=== PATIENT | female | born 1955 | race Caucasian/White ===

== ENCOUNTER 2021-06-17 16:21 | Inpatient (IN) | payer SELFPAY ==
[~2021-06-17] VITALS: Ht 162.5 cm; Wt 60.0 kg
[2021-06-17] VITALS (8 sets, daily range): BP systolic 139–152; BP diastolic 84–93
[2021-06-17] MEDS ORDERED: fentaNYL INJ 100 MCG/2 ML AMP IVP STA (16:48)
--- NOTE | 2021-06-17 16:57 | ED Abdominal Pain ---
General Chief Complaint: Abdominal/GI Problems Stated Complaint: UPPER ABD/BACK PAIN History of Present Illness Date Seen by Provider: Jun 17, 2021 Time Seen by Provider: 16:40 Initial Comments 65-year-old female presents for acute epigastric pain. She states over the last several days her pain has become worse. She does not have a primary care provider. She was seen at [facility] in the walk-in care earlier today and had an ultrasound and lab work. She was told that her ultrasound was essentially normal and her lab work would not be available for a few days. Her symptoms have worsened and she presents here. She reports mild nausea she has not vomited since earlier today. She has not eaten much today and hasn't had an appetite for the last few days. She reports slight weight loss over the last few days. She denies any urinary symptoms. She has no history of chronic GI symptoms. She has never had a colonoscopy. She tried some Rolaids last evening, for heart burn and had no improvement. She has not received the COVID vaccine and has no known exposure. No past history of CAD and no family history of CAD. Timing/Duration: 4-5 Days Severity/Quality: Severe Location: Epigastric Radiation: Back Associated Symptoms: Back Pain; No Chest Pain, No Diaphoresis, No Fever/Chills, No Fatigue, No Headache; Heartburn, Nausea/Vomiting; No Rash, No Shortness of Air, No Swelling/Mass in Abdomen, No Syncope, No Weakness Allergies and Home Medications Allergies Coded Allergies: No Known Drug Allergies (Unverified , 06/17/21) Patient Home Medication List Home Medication List Reviewed: Yes Review of Systems Review of Systems Constitutional: no symptoms reported, see HPI Respiratory: No Symptoms Reported, See HPI Gastrointestinal: See HPI, Abdominal Pain; Denies Constipated, Denies Diarrhea; Nausea, Poor Appetite, Poor Fluid Intake; Denies Rectal Bleeding, Denies Vomiting Genitourinary: No Symptoms Reported, See HPI All Other Systems Reviewed Negative Unless Noted: Yes Past Qnehjzx-Yryrqk-Nhbbxp Hx Patient Social History Tobacco Use?: No Use of E-Cig and/or Vaping dev: No Substance use?: No Alcohol Use?: Yes Alcohol type: Beer Alcohol Frequency: Couple times a week Pt feels they are or have been: No Immunizations Up To Date Influenza Vaccine Up-to-Date: No; Not Current Family Medical History Reviewed Nursing Family Hx Physical Exam Vital Signs Vital Signs - First Documented 06/17/21 16:27 Temp 36.5 Pulse 93 Resp 20 B/P (MAP) 227/134 (165) Pulse Ox 98 O2 Delivery Room Air Capillary Refill : Height/Weight/BMI Height: '" Weight: lbs. oz. kg; BMI Method: General Appearance: WD/WN, mild distress (secondary to pain) HEENT: PERRL/EOMI, normal ENT inspection, TMs normal, pharynx normal Neck: non-tender, full range of motion, supple, normal inspection Respiratory: chest non-tender, lungs clear, normal breath sounds Cardiovascular: normal peripheral pulses, regular rate, rhythm, no edema Gastrointestinal: normal bowel sounds, soft, no pulsatile mass; No distended, No rebound; tenderness (epigastric. + Negrete sign. ) Extremities: normal range of motion, non-tender, normal inspection, no pedal edema, normal capillary refill Back: normal inspection, no CVA tenderness Neurologic/Psychiatric: no motor/sensory deficits, alert, normal mood/affect, oriented x 3 Skin: normal color, warm/dry; No jaundice Lymphatic: no adenopathy Progress/Results/Core Measures Results/Orders Lab Results Laboratory Tests Test 06/17/21 16:31 Range/Units White Blood Count 12.9 H 4.3-11.0 10^3/uL Red Blood Count 3.86 3.80-5.11 10^6/uL Hemoglobin 12.8 11.5-16.0 g/dL Hematocrit 38 35-52 % Mean Corpuscular Volume 98 80-99 fL Mean Corpuscular Hemoglobin 33 25-34 pg Mean Corpuscular Hemoglobin Concent 34 32-36 g/dL Red Cell Distribution Width 13.9 10.0-14.5 % Platelet Count 80 L 130-400 10^3/uL Mean Platelet Volume 11.5 9.0-12.2 fL Immature Granulocyte % (Auto) 1 % Neutrophils (%) (Auto) 79 H 42-75 % Lymphocytes (%) (Auto) 11 L 12-44 % Monocytes (%) (Auto) 10 0-12 % Eosinophils (%) (Auto) 0 0-10 % Basophils (%) (Auto) 0 0-10 % Neutrophils # (Auto) 10.1 H 1.8-7.8 10^3/uL Lymphocytes # (Auto) 1.4 1.0-4.0 10^3/uL Monocytes # (Auto) 1.3 H 0.0-1.0 10^3/uL Eosinophils # (Auto) 0.0 0.0-0.3 10^3/uL Basophils # (Auto) 0.0 0.0-0.1 10^3/uL Immature Granulocyte # (Auto) 0.1 0.0-0.1 10^3/uL Percent Immature Platelet Fraction 9.3 H 0.0-7.6 % Urine Color YELLOW Urine Clarity CLEAR Urine pH 6.0 5-9 Urine Specific [place] >=1.030 1.016-1.022 Urine Protein 2+ H NEGATIVE Urine Glucose (UA) NEGATIVE NEGATIVE Urine Ketones NEGATIVE NEGATIVE Urine Nitrite NEGATIVE NEGATIVE Urine Bilirubin NEGATIVE NEGATIVE Urine Urobilinogen 0.2 < = 1.0 MG/DL Urine Leukocyte Esterase NEGATIVE NEGATIVE Urine RBC (Auto) 3+ H NEGATIVE Urine RBC 5-10 H /HPF Urine WBC 0-2 /HPF Urine Crystals PRESENT H /LPF Urine Amorphous Sediment FEW MELCHOR URATES H /LPF Urine Bacteria TRACE /HPF Urine Casts PRESENT /LPF Urine Granular Casts 5-10 H /LPF Urine Mucus NEGATIVE /LPF Urine Culture Indicated NO Sodium Level 135 135-145 MMOL/L Potassium Level 3.0 L 3.6-5.0 MMOL/L Chloride Level 100 98-107 MMOL/L Carbon Dioxide Level 21 21-32 MMOL/L Anion Gap 14 5-14 MMOL/L Blood Urea Nitrogen 25 H 7-18 MG/DL Creatinine 2.85 H 0.60-1.30 MG/DL Estimat Glomerular Filtration Rate 17 BUN/Creatinine Ratio 9 Glucose Level 105 70-105 MG/DL Calcium Level 9.6 8.5-10.1 MG/DL Corrected Calcium 9.6 8.5-10.1 MG/DL Total Bilirubin 2.1 H 0.1-1.0 MG/DL Aspartate Amino Transf (AST/SGOT) 61 H 5-34 U/L Alanine Aminotransferase (ALT/SGPT) 33 0-55 U/L Alkaline Phosphatase 99 40-136 U/L Troponin I 0.125 H <0.028 NG/ML Total Protein 7.2 6.4-8.2 GM/DL Albumin 4.0 3.2-4.5 GM/DL My Orders Orders - KRISTY WATSON Cbc With Automated Diff (06/17/21 16:48) Comprehensive Metabolic Panel (06/17/21 16:48) Ua Culture If Indicated (06/17/21 16:48) Chest 1 View, Ap/Pa Only (06/17/21 16:48) Ct Abdomen/Pelvis Wo (06/17/21 16:48) Ondansetron Injection (Zofran Injectio (06/17/21 17:00) Fentanyl Inj (Sublimaze Injection) (06/17/21 16:48) Ed Iv/Invasive Line Start (06/17/21 16:48) Ns Iv 1000 Ml (Sodium Chloride 0.9%) (06/17/21 17:00) Troponin I (06/17/21 16:53) Hydralazine Injection (Apresoline Inject (06/17/21 17:33) Ekg Tracing (06/17/21 18:02) Aspirin Chewable Tablet (Baby Aspirin Ch (06/17/21 18:04) Potassium Chloride (Tablet) (Klor Con Ta (06/17/21 18:14) Labetalol Injection (Normodyne Injection (06/17/21 18:25) Metoprolol Succinate (Xl) Tab (Toprol Xl (06/17/21 18:47) Enoxaparin Injection (Lovenox Injection) (06/17/21 18:47) Morphine Injection (Morphine Injection (06/17/21 19:03) Medications Given in ED Current Medications Medications Dose Ordered Sig/Christen Route Start Time Stop Time Status Last Admin Dose Admin Ondansetron HCl 4 mg ONCE ONCE IVP 06/17/21 17:00 06/17/21 17:01 DC 06/17/21 16:59 4 MG Vital Signs/I&O 06/17/21 16:27 Temp 36.5 Pulse 93 Resp 20 B/P (MAP) 227/134 (165) Pulse Ox 98 O2 Delivery Room Air Progress Progress Note : Time: 16:40 Progress Note patient seen and evaluated. Will check labs, chest x-ray, and CT abdomen and pe lvis. Fentanyl 50 mcg IV for pain and Zofran 4 mg IV for nausea. NS 1 L. She is hypertensive 200/100, reporting no history of hypertension. Will see if this improves when pain is better controlled. Will call [facility] for US report. Hydralazine 10 mg IV for hypertension. Ultrasound report received from [facility] of the right upper quadrant shows the gallbladder to be unremarkable with no stones no gallbladder wall thickening no pericholecystic fluid the common bile duct is normal in caliber the right kidney is unremarkable the liver is unremarkable and the visualized portion of the pancreas is unremarkable. 1700 fentanyl was given and within 5 minutes the patient's SaO2 dropped to 90%, she was alert and oriented. O2 per nasal cannula at 1 L improved her oxygen saturations to 95% or higher. Patient does report improvement in her pain. 1730 chest x-ray, and CT of the abdomen/pelvis unremarkable. 1745 Troponin elevated to 0.125, will give ASA 324 mg po and obtain EKG. [address] elevation on EKG. Blood pressure has improved very slightly, will give labetalol 10 mg IV. [address] Yin per phone, agreed with plan for admission. Will give Toprol-XL 25 mg p.o. and Lovenox 60 mg subcu. We will continue to hydrate for the elevated creatinine. [address] Jacobs, agreed with plans for admission. Spoke to the patient and her . Discussed all results and they are agreeable with admission. All questions answered. 185 patient complains of increasing epigastric pain again, will give morphine 2 mg IV. Initial ECG Impression Date: Jun 17, 2021 Initial ECG Impression Time: 18:10 Initial ECG Rate: 80 Initial ECG Rhythm: Normal Sinus Initial ECG Intervals: Normal Initial ECG Intervals RI 150, QRSD 89, QT 438, QTc 506. Elmer P 46, QRS -16, T 31. Initial ECG Impression: Normal Initial ECG Comparisson: No Previous ECG Available Diagnostic Imaging Diagonstic Imaging: Xray Plain Films/CT/US/NM/MRI: chest Comments NAME: LAUREN CORDERO [employer] REC#: [id number] PT STATUS: REG ER : 1955 PHYSICIAN: KRISTY WATSON ADMIT DATE: 06/17/21/ER Draft Date of Exam:06/17/21 CHEST 1 VIEW, AP/PA ONLY EXAMINATION: Chest 1 view HISTORY: Epigastric pain. COMPARISON: None available. FINDINGS: The lungs are clear without edema or pneumonia. No pleural effusion or pneumothorax. Heart size is normal. IMPRESSION: 1. Clear lungs. Dictated on workstation # [id number] Dict: 06/17/21 1724 Trans: 06/17/21 1726 [facility] [id number] Interpreted by: PATRICIA AZAR MD Electronically signed by: Reviewed: Reviewed by Me Diagonstic Imaging: CT Plain Films/CT/US/NM/MRI: abdomen, pelvis Comments NAME: LAUREN CORDERO [facility] REC#: [id number] PT STATUS: REG ER : 1955 PHYSICIAN: KRISTY WATSON ADMIT DATE: 06/17/21/ER Draft Date of Exam:06/17/21 CT ABDOMEN/PELVIS WO EXAMINATION: CT abdomen and pelvis without contrast. TECHNIQUE: Multiple contiguous axial images were obtained through the abdomen and pelvis without the use of intravenous contrast. All CT scans use one or more of the following dose optimizing techniques: Automated exposure control, MA and/or KvP adjustment based on patient size and exam type or iterative reconstruction. HISTORY: Epigastric pain. COMPARISON: None available. FINDINGS: Limited views of the lower thorax are unremarkable. The liver is normal without focal lesion. There is no biliary ductal dilation. Gallbladder is normal. Pancreas is normal. Spleen is normal. Adrenal glands are normal. The kidneys are normal. There is no hydronephrosis. Urinary bladder is normal. Visualized bowel is normal in caliber without obstruction or inflammation. No free fluid or air. No abdominal or pelvic lymphadenopathy. Aorta is normal in caliber without aneurysm. There are no suspicious osseous lesions. There is left hip arthroplasty. IMPRESSION: 1. No acute abnormality in the abdomen or pelvis. Dictated on workstation # [id number] Dict: 06/17/21 1726 Trans: 06/17/21 1730 [id number] Interpreted by: PATRICIA AZAR MD Electronically signed by: Reviewed: Reviewed by Me Departure Impression Primary Impression: Abdominal pain Qualified Codes: R10.13 - Epigastric pain Additional Impressions: Hypertension Qualified Codes: I10 - Essential (primary) hypertension Non-STEMI (non-ST elevated myocardial infarction) Disposition: ADMITTED INPATIENT Condition: Stable Admissions Decision to Admit Reason: Admit from ER (General) Decision to Admit/Date: Jun 17, 2021 Time/Decision to Admit Time: 18:15 Departure-Patient Inst. Referrals: [facility] (PCP/Family) Primary Care Physician Copy Copies To 1: LACEY JACOBS MD; VERO YIN MD, AMY ARNP Jun 17, 2021 16:57
[2021-06-17] MEDS ORDERED: NS IV 1000 ML 1,000 ML IV SCH (17:00)
[2021-06-17] MEDS ORDERED: ONDANSETRON 4 MG/2 ML (SDV) Z0FRAN IVP ONE (17:00)
[2021-06-17 17:14] LABS: BILIRUBIN,URINE NEGATIVE (NEGATIVE); CLARITY,URINE CLEAR; COLOR,URINE YELLOW; GLUCOSE, URINE (UA) NEGATIVE (NEGATIVE); KETONES,URINE NEGATIVE (NEGATIVE); LEUKOCYTE ESTERASE ,URINE NEGATIVE (NEGATIVE); NITRITE,URINE NEGATIVE (NEGATIVE); PROTEIN,URINE 2+ (NEGATIVE)
--- NOTE | 2021-06-17 17:26 | Diagnostic Imaging Report ---
EXAMINATION: Chest 1 view HISTORY: Epigastric pain. COMPARISON: None available. FINDINGS: The lungs are clear without edema or pneumonia. No pleural effusion or pneumothorax. Heart size is normal. IMPRESSION: 1. Clear lungs. Dictated by: Dictated on workstation # [id number]
--- NOTE | 2021-06-17 17:30 | Diagnostic Imaging Report ---
EXAMINATION: CT abdomen and pelvis without contrast. TECHNIQUE: Multiple contiguous axial images were obtained through the abdomen and pelvis without the use of intravenous contrast. All CT scans use one or more of the following dose optimizing techniques: Automated exposure control, MA and/or KvP adjustment based on patient size and exam type or iterative reconstruction. HISTORY: Epigastric pain. COMPARISON: None available. FINDINGS: Limited views of the lower thorax are unremarkable. The liver is normal without focal lesion. There is no biliary ductal dilation. Gallbladder is normal. Pancreas is normal. Spleen is normal. Adrenal glands are normal. The kidneys are normal. There is no hydronephrosis. Urinary bladder is normal. Visualized bowel is normal in caliber without obstruction or inflammation. No free fluid or air. No abdominal or pelvic lymphadenopathy. Aorta is normal in caliber without aneurysm. There are no suspicious osseous lesions. There is left hip arthroplasty. IMPRESSION: 1. No acute abnormality in the abdomen or pelvis. Dictated by: Dictated on workstation # [id number]
[2021-06-17 17:31] LABS: AMORPHOUS SEDIMENT,UR FEW AMOR URATES /LPF; BACTERIA,URINE TRACE /HPF; WBC,URINE 0-2 /HPF
[2021-06-17] MEDS ORDERED: hydrALAZINE (APESOLINE) 20 MG/ML VIAL IV STA (17:33)
[2021-06-17 17:34] LABS: CALCIUM 9.6 MG/DL (8.5-10.1)
[2021-06-17 17:35] LABS: MEAN CORPUSCULAR VOLUME 98 fL (80-99)
[2021-06-17 17:36] LABS: TOTAL PROTEIN 7.2 GM/DL (6.4-8.2)
[2021-06-17 17:37] LABS: BASOPHILS % (AUTO) 0 % (0-10); BILIRUBIN,TOTAL 2.1 MG/DL (0.1-1.0); EOSINOPHILS % (AUTO) 0 % (0-10); HEMATOCRIT 38 % (35-52); HEMOGLOBIN 12.8 g/dL (11.5-16.0); LYMPHOCYTES # (AUTO) 1.4 10^3/uL (1.0-4.0); LYMPHOCYTES % (AUTO) 11 % (12-44); MEAN CORPUSCULAR HEMOGLOBIN 33 pg (25-34); MEAN CORPUSCULAR HGB CONC 34 g/dL (32-36); MEAN PLATELET VOLUME 11.5 fL (9.0-12.2); MONOCYTES # (AUTO) 1.3 10^3/uL (0.0-1.0); MONOCYTES % (AUTO) 10 % (0-12); NEUTROPHILS # (AUTO) 10.1 10^3/uL (1.8-7.8); NEUTROPHILS % (AUTO) 79 % (42-75); PLATELET COUNT 80 10^3/uL (130-400); WHITE BLOOD COUNT 12.9 10^3/uL (4.3-11.0)
[2021-06-17 17:39] LABS: CREATININE SERUM 2.85 MG/DL (0.60-1.30)
[2021-06-17] MEDS ORDERED: ASPIRIN 81 MG CHEW (CHILDREN'S ASA) PO STA (18:04)
[2021-06-17] MEDS ORDERED: KCL 10 MEQ TAB (MICRO K) PO STA (18:14)
[2021-06-17] MEDS ORDERED: LABETALOL HCL 20 MG/4 ML VIAL IV STA (18:25)
[2021-06-17] MEDS ORDERED: ENOXAPARIN 60 MG/0.6 ML (LOVENOX) SYR SC STA (18:47)
[2021-06-17] MEDS ORDERED: morphine INJ 10 MG/ML 1ML (SYR OR VIAL) IVP STA (19:03)
[2021-06-17] MEDS ORDERED: MIDAZOLAM 5 MG/5 ML (VERSED) VIAL ONE (21:22)
[2021-06-17] MEDS ORDERED: fentaNYL INJ 100 MCG/2 ML AMP ONE (21:22)
[2021-06-17] MEDS ORDERED: HEParin 1000 UNIT/ML (10ML VIAL) FOR BOLUS ONE (21:22)
[2021-06-17] MEDS ORDERED: LIDOCAINE 1% INJ 20 ML 20 ML VIAL ONE (21:22)
[2021-06-17] MEDS ORDERED: HEParin (CATH LAB) 2,000 ML IV ONE (21:23)
[2021-06-17] MEDS ORDERED: NS IV 1000 ML 1,000 ML ONE (21:23)
[2021-06-17] MEDS ORDERED: ONDANSETRON 4 MG/2 ML (SDV) Z0FRAN IVP PRN (22:00)
[2021-06-17] MEDS: POTASSIUM CL 10MEQ/50ML IVPB 50 ML IV SCH ×2 (22:17→23:00)
[2021-06-17] MEDS: NS IV 1000 ML 1,000 ML IV SCH (22:17)
[2021-06-17] MEDS: morphine INJ 4 MG/ML 1 ML (VIAL/SYRINGE) IVP PRN (22:18)
[2021-06-18] VITALS: BP 137/83
[2021-06-18] MEDS: POTASSIUM CL 10MEQ/50ML IVPB 50 ML IV SCH ×2 (00:19→01:15)
[2021-06-18 04:00] VITALS: BP 135/87
[2021-06-18 05:54] LABS: NEUTROPHILS # (AUTO) 8.2 10^3/uL (1.8-7.8)
[2021-06-18 05:56] LABS: BASOPHILS % (AUTO) 0 % (0-10); EOSINOPHILS # (AUTO) 0.1 10^3/uL (0.0-0.3); EOSINOPHILS % (AUTO) 1 % (0-10); HEMATOCRIT 32 % (35-52); HEMOGLOBIN 10.3 g/dL (11.5-16.0); LYMPHOCYTES # (AUTO) 1.4 10^3/uL (1.0-4.0); LYMPHOCYTES % (AUTO) 12 % (12-44); MEAN CORPUSCULAR HEMOGLOBIN 33 pg (25-34); MEAN CORPUSCULAR HGB CONC 32 g/dL (32-36); MEAN CORPUSCULAR VOLUME 102 fL (80-99); MONOCYTES # (AUTO) 1.5 10^3/uL (0.0-1.0); MONOCYTES % (AUTO) 13 % (0-12); NEUTROPHILS % (AUTO) 73 % (42-75); PLATELET COUNT 78 10^3/uL (130-400); WHITE BLOOD COUNT 11.3 10^3/uL (4.3-11.0)
[2021-06-18 06:02] LABS: ALBUMIN 3.2 GM/DL (3.2-4.5)
[2021-06-18 06:03] LABS: POTASSIUM 4.1 MMOL/L (3.6-5.0)
[2021-06-18 06:04] LABS: CALCIUM 8.1 MG/DL (8.5-10.1)
[2021-06-18 06:05] LABS: TOTAL PROTEIN 5.7 GM/DL (6.4-8.2)
[2021-06-18 06:07] LABS: BILIRUBIN,TOTAL 1.4 MG/DL (0.1-1.0)
[2021-06-18 06:09] LABS: CREATININE SERUM 2.95 MG/DL (0.60-1.30)
[2021-06-18 07:43] VITALS: BP 151/92
[2021-06-18] MEDS: ACETAMINOPHEN 500 MG TAB (TYLENOL) PO PRN (08:07)
[2021-06-18] MEDS: ASPIRIN E.C. 325 MG (ECOTRIN) TABLET PO SCH (08:07)
[2021-06-18] MEDS: NS IV 1000 ML 1,000 ML IV SCH ×4 (08:08→18:32)
[2021-06-18] MEDS ORDERED: ACET-2267 PO (09:07)
[2021-06-18] MEDS ORDERED: IBUP-2473 PO (09:07)
[2021-06-18] MEDS: morphine INJ 4 MG/ML 1 ML (VIAL/SYRINGE) IVP PRN (11:20)
[2021-06-18 11:51] VITALS: BP 152/88
--- NOTE | 2021-06-18 13:04 | Consultation-Cardiology ---
HPI-Cardiology Cardiology Consultation Date of Consultation 06/18/21 Date of Admission Time Seen by Provider: 12:58 Indication: Non-ST elevation myocardial infarction HPI 65-year-old lady who has been having recurrent epigastric pain has been worsening recently, patient went to the walk-in clinic and had an abnormal lab work, reported that she had an ultrasound, pain became worse and came to the emergency room she was noted to be in acute renal failure and have elevation in troponin. On my evaluation patient continued to have abdominal pain appears to be reproducible in her epigastric area and mainly right flank area. Denied any fever or chills. No dysuria or polyuria, no fever or chills, admit having mild cough and shortness of breath. No syncope. No previous cardiac history. Home Medications & Allergies Allergies: Coded Allergies: No Known Drug Allergies (Unverified , 06/17/21) Home Medication List Reviewed: Yes LLW-Uxjvid-Ksuhnz Hx Patient Social History Marital Status: Employed/Student: employed Smoking Status: Former Smoker Have you traveled recently?: No Alcohol Use?: Yes Past Medical History Discussed below Family Medical History Family Medical Hx Noncontributory Review of Systems-General Review of Systems Constitutional: no symptoms reported, see HPI EENTM: see HPI, no symptoms reported Respiratory: no symptoms reported, see HPI Cardiovascular: see HPI Gastrointestinal: RUQ, RLQ, see HPI, abdominal pain (RLQ), nausea Genitourinary: no symptoms reported, see HPI Musculoskeletal: no symptoms reported, see HPI Skin: no symptoms reported, see HPI Psychiatric/Neurological: No Symptoms Reported, See HPI All Other Systems Reviewed Negative Unless Noted: Yes Reviewed Test Results Reviewed Test Results Lab Laboratory Tests Test 06/17/21 16:31 06/18/21 05:45 Range/Units White Blood Count 12.9 H 11.3 H 4.3-11.0 10^3/uL Red Blood Count 3.86 3.16 L 3.80-5.11 10^6/uL Hemoglobin 12.8 10.3 L 11.5-16.0 g/dL Hematocrit 38 32 L 35-52 % Mean Corpuscular Volume 98 102 H 80-99 fL Mean Corpuscular Hemoglobin 33 33 25-34 pg Mean Corpuscular Hemoglobin Concent 34 32 32-36 g/dL Red Cell Distribution Width 13.9 14.3 10.0-14.5 % Platelet Count 80 L 78 L 130-400 10^3/uL Mean Platelet Volume 11.5 11.0 9.0-12.2 fL Immature Granulocyte % (Auto) 1 1 % Neutrophils (%) (Auto) 79 H 73 42-75 % Lymphocytes (%) (Auto) 11 L 12 12-44 % Monocytes (%) (Auto) 10 13 H 0-12 % Eosinophils (%) (Auto) 0 1 0-10 % Basophils (%) (Auto) 0 0 0-10 % Neutrophils # (Auto) 10.1 H 8.2 H 1.8-7.8 10^3/uL Lymphocytes # (Auto) 1.4 1.4 1.0-4.0 10^3/uL Monocytes # (Auto) 1.3 H 1.5 H 0.0-1.0 10^3/uL Eosinophils # (Auto) 0.0 0.1 0.0-0.3 10^3/uL Basophils # (Auto) 0.0 0.0 0.0-0.1 10^3/uL Immature Granulocyte # (Auto) 0.1 0.1 0.0-0.1 10^3/uL Percent Immature Platelet Fraction 9.3 H 8.4 H 0.0-7.6 % Urine Color YELLOW Urine Clarity CLEAR Urine pH 6.0 5-9 Urine Specific [place] >=1.030 1.016-1.022 Urine Protein 2+ H NEGATIVE Urine Glucose (UA) NEGATIVE NEGATIVE Urine Ketones NEGATIVE NEGATIVE Urine Nitrite NEGATIVE NEGATIVE Urine Bilirubin NEGATIVE NEGATIVE Urine Urobilinogen 0.2 < = 1.0 MG/DL Urine Leukocyte Esterase NEGATIVE NEGATIVE Urine RBC (Auto) 3+ H NEGATIVE Urine RBC 5-10 H /HPF Urine WBC 0-2 /HPF Urine Crystals PRESENT H /LPF Urine Amorphous Sediment FEW MELCHOR URATES H /LPF Urine Bacteria TRACE /HPF Urine Casts PRESENT /LPF Urine Granular Casts 5-10 H /LPF Urine Mucus NEGATIVE /LPF Urine Culture Indicated NO Sodium Level 135 136 135-145 MMOL/L Potassium Level 3.0 L 4.1 3.6-5.0 MMOL/L Chloride Level 100 108 H 98-107 MMOL/L Carbon Dioxide Level 21 19 L 21-32 MMOL/L Anion Gap 14 9 5-14 MMOL/L Blood Urea Nitrogen 25 H 27 H 7-18 MG/DL Creatinine 2.85 H 2.95 H 0.60-1.30 MG/DL Estimat Glomerular Filtration Rate 17 16 BUN/Creatinine Ratio 9 9 Glucose Level 105 90 70-105 MG/DL Calcium Level 9.6 8.1 L 8.5-10.1 MG/DL Corrected Calcium 9.6 8.7 8.5-10.1 MG/DL Total Bilirubin 2.1 H 1.4 H 0.1-1.0 MG/DL Aspartate Amino Transf (AST/SGOT) 61 H 41 H 5-34 U/L Alanine Aminotransferase (ALT/SGPT) 33 26 0-55 U/L Alkaline Phosphatase 99 84 40-136 U/L Troponin I 0.125 H 0.118 H <0.028 NG/ML Total Protein 7.2 5.7 L 6.4-8.2 GM/DL Albumin 4.0 3.2 3.2-4.5 GM/DL Physical Exam Physical Exam Vital Signs Vital Signs - First Documented 06/17/21 06/18/21 16:27 04:00 Temp 36.5 Pulse 93 Resp 20 B/P (MAP) 227/134 (165) Pulse Ox 98 O2 Delivery Room Air O2 Flow Rate 2.00 Capillary Refill : Less Than 3 Seconds Height, Weight, BMI Height: '" Weight: lbs. oz. kg; 22.72 BMI Method: General Appearance: No Apparent Distress, WD/WN Eyes: Bilateral Eye Normal Inspection, Bilateral Eye PERRL, Bilateral Eye EOMI HEENT: PERRL/EOMI, TMs Normal, Normal ENT Inspection, Pharynx Normal, Moist Mucous Membranes Neck: Full Range of Motion, Normal Inspection, Non Tender, Supple, Carotid Bruit Respiratory: Chest Non Tender, Normal Breath Sounds, No Accessory Muscle Use, No Respiratory Distress Cardiovascular: Regular Rate, Rhythm, No Edema, No Gallop, No JVD, No Murmur, Normal Peripheral Pulses Gastrointestinal: Normal Bowel Sounds, No Organomegaly, No Pulsatile Mass, Non Tender, Soft Back: Normal Inspection, No CVA Tenderness, No Vertebral Tenderness Extremity: Normal Capillary Refill, Normal Inspection, Normal Range of Motion, Non Tender, No Calf Tenderness, No Pedal Edema Neurologic/Psychiatric: Alert, Oriented x3, No Motor/Sensory Deficits, Normal Mood/Affect Skin: Normal Color, Warm/Dry Lymphatic: No Adenopathy A/P-Cardiology Admission Diagnosis Acute renal failure Non-ST elevation myocardial infarction Malignant hypertension Hyperlipidemia Assessment/Plan Acute renal failure, unknown etiology, has been taking increasing dose of NSAID recently over the past few days. No urinary tract symptoms. I started on IV fluids, CT scan of the abdomen did not show any acute abnormality, I will evaluate arterial Doppler to the renal arteries and abdominal aorta. Continue with IV fluid Elevated troponin level, non-ST elevation myocardial infarction, no active chest pain, mainly her abdominal pain appears to be reproducible. No acute EKG changes, it could be secondary to the renal failure. Echo showed mild LVH with pulmonary hypertension with PA pressure 60 to 65 mmHg. Moderate tricuspid regurgitation. Continue on aspirin and Lovenox for now Malignant hypertension, still elevated blood pressure, started on Toprol last night, cannot tolerate KEVIN inhibitor and/or ARB due to renal failure. I will increase beta-deric dose and evaluate tolerance and response. Questionable hyperlipidemia, evaluate lipid profile VERO MILLER MD Jun 18, 2021 13:04
[2021-06-18] MEDS: PANTOPRAZOLE 40 MG (PROTONIX) TAB PO SCH (13:55)
[2021-06-18] MEDS ORDERED: KETOROLAC 30 MG/ML VIAL IVP ONE (15:00)
[2021-06-18] MEDS: amLODIPine 5 MG (NORVASC) TAB PO SCH (15:39)
[2021-06-18 15:41] VITALS: BP 162/96
--- NOTE | 2021-06-18 15:53 | History & Physical ---
HPI History of Present Illness: 65 yo F that presented with severe epigastric pain. Patient seen in walkin and had normal US and labs were drawn but are pending. Patient states that her pain continued to get worse so she presented to the ER. Normal CT in the ER. Patient states that she has been having increase in XAVIER and has been taking motrin every 4-6 hrs. She has had normal PO intake other then when she is trying to get rid of her XAVIER. In ER she had mild elevation in trop and was found to have elevated Cr. Patient denies any previous h/o kidney dysfunction. Source: patient, family Exam Limitations: no limitations Date seen by provider: Jun 18, 2021 Time Seen by Provider: 09:00 Attending Physician Lacey Adames MD [facility] [place] Consult Date of Admission Jun 17, 2021 at 18:30 Home Medications Home Medications Reviewed patient Home Medication Reconciliation performed by pharmacy medication reconciliations breed to wean production technician and/or nursing. Patients Allergies have been reviewed. Allergies Coded Allergies: No Known Drug Allergies (Unverified , 06/17/21) XAZ-Svtjrx-Pgzasa Hx Patient Social History Marrital Status: Employed/Student: employed Smoking Status: Former Smoker Alcohol Use?: Yes Have you traveled recently?: No Past Medical History HTN Family Medical History Significant Family History: No Pertinent Family Hx Review of Systems ([facility]C) Constitutional: No chills, No fever; malaise EENTM: no symptoms reported; No mouth pain, No nose congestion Respiratory: No cough; dyspnea on exertion; No short of breath Cardiovascular: chest pain; No edema, No palpitations Gastrointestinal: abdominal pain; No constipation, No diarrhea; loss of appetite, nausea; No vomiting Genitourinary: no symptoms reported; No dysuria, No frequency, No hematuria : No Musculoskeletal: no symptoms reported Skin: no symptoms reported Psychiatric/Neurological: No Symptoms Reported Reviewed Test Results Reviewed Test Results Lab Laboratory Tests Test 06/18/21 05:45 Range/Units White Blood Count 11.3 H 4.3-11.0 10^3/uL Red Blood Count 3.16 L 3.80-5.11 10^6/uL Hemoglobin 10.3 L 11.5-16.0 g/dL Hematocrit 32 L 35-52 % Mean Corpuscular Volume 102 H 80-99 fL Mean Corpuscular Hemoglobin 33 25-34 pg Mean Corpuscular Hemoglobin Concent 32 32-36 g/dL Red Cell Distribution Width 14.3 10.0-14.5 % Platelet Count 78 L 130-400 10^3/uL Mean Platelet Volume 11.0 9.0-12.2 fL Immature Granulocyte % (Auto) 1 % Neutrophils (%) (Auto) 73 42-75 % Lymphocytes (%) (Auto) 12 12-44 % Monocytes (%) (Auto) 13 H 0-12 % Eosinophils (%) (Auto) 1 0-10 % Basophils (%) (Auto) 0 0-10 % Neutrophils # (Auto) 8.2 H 1.8-7.8 10^3/uL Lymphocytes # (Auto) 1.4 1.0-4.0 10^3/uL Monocytes # (Auto) 1.5 H 0.0-1.0 10^3/uL Eosinophils # (Auto) 0.1 0.0-0.3 10^3/uL Basophils # (Auto) 0.0 0.0-0.1 10^3/uL Immature Granulocyte # (Auto) 0.1 0.0-0.1 10^3/uL Percent Immature Platelet Fraction 8.4 H 0.0-7.6 % Sodium Level 136 135-145 MMOL/L Potassium Level 4.1 3.6-5.0 MMOL/L Chloride Level 108 H 98-107 MMOL/L Carbon Dioxide Level 19 L 21-32 MMOL/L Anion Gap 9 5-14 MMOL/L Blood Urea Nitrogen 27 H 7-18 MG/DL Creatinine 2.95 H 0.60-1.30 MG/DL Estimat Glomerular Filtration Rate 16 BUN/Creatinine Ratio 9 Glucose Level 90 70-105 MG/DL Calcium Level 8.1 L 8.5-10.1 MG/DL Corrected Calcium 8.7 8.5-10.1 MG/DL Total Bilirubin 1.4 H 0.1-1.0 MG/DL Aspartate Amino Transf (AST/SGOT) 41 H 5-34 U/L Alanine Aminotransferase (ALT/SGPT) 26 0-55 U/L Alkaline Phosphatase 84 40-136 U/L Troponin I 0.118 H <0.028 NG/ML Total Protein 5.7 L 6.4-8.2 GM/DL Albumin 3.2 3.2-4.5 GM/DL Physical Exam-([facility]C) Physical Exam Vital Signs VS - Last 72 Hours, by Label 06/17/21 06/17/21 06/17/21 06/17/21 16:27 21:19 21:21 21:29 Temp 36.5 Pulse 93 89 86 85 Resp 20 B/P (MAP) 227/134 (165) 146/92 (110) 152/92 (112) Pulse Ox 98 95 94 O2 Delivery Room Air Room Air Room Air 06/17/21 06/17/21 06/17/21 06/17/21 21:30 21:38 21:45 22:00 Pulse 84 80 80 Resp 15 16 12 B/P (MAP) 150/90 (108) 151/92 (119) 151/93 (113) Pulse Ox 95 96 94 O2 Delivery Room Air Room Air Room Air Room Air 06/17/21 06/17/21 06/17/21 06/18/21 22:15 22:30 23:00 00:00 Temp 37.1 Pulse 83 85 81 75 Resp 27 19 11 12 B/P (MAP) 144/84 (102) 143/87 (108) 139/86 (106) 137/83 (101) Pulse Ox 92 92 94 90 O2 Delivery Room Air Room Air Room Air Room Air 06/18/21 06/18/21 06/18/21 06/18/21 01:00 01:30 04:00 05:39 Pulse 76 76 Resp 12 B/P (MAP) 135/87 (103) Pulse Ox 95 O2 Delivery Room Air Nasal Cannula Room Air O2 Flow Rate 2.00 06/18/21 06/18/21 06/18/21 06/18/21 06:45 07:43 09:30 11:51 Temp 37.9 37.7 Pulse 71 78 74 Resp 18 16 B/P (MAP) 151/92 (111) 152/88 (109) Pulse Ox 98 97 O2 Delivery Nasal Cannula Room Air Nasal Cannula O2 Flow Rate 2.00 2.00 06/18/21 06/18/21 06/18/21 06/18/21 12:34 15:41 19:00 19:32 Temp 37.8 Pulse 89 80 73 71 Resp 22 20 B/P (MAP) 162/96 (118) 170/96 (120) Pulse Ox 88 86 O2 Delivery Room Air Room Air Capillary Refill : Less Than 3 Seconds General Appearance: WD/WN, no apparent distress, thin HEENT: PERRL/EOMI Neck: non-tender, full range of motion, supple Respiratory: chest non-tender, lungs clear, normal breath sounds, no respiratory distress, no accessory muscle use Cardiovascular: normal peripheral pulses, regular rate, rhythm, no edema, no murmur Gastrointestinal: normal bowel sounds, soft; No guarding, No rebound; tenderness (epigastric) Back: no CVA tenderness Extremities: normal range of motion, non-tender, normal inspection, no pedal edema, no calf tenderness, normal capillary refill Neurologic/Psychiatric: workers compensation claims analyst II-XII nml as tested, no motor/sensory deficits, alert, normal mood/affect, oriented x 3 Skin: normal color, warm/dry Lymphatic: no adenopathy Assessment/Plan Assessment/Plan Admission Status: Inpatient Order (span 2 midnights) Reason for Inpatient Admission: Requiring close f.u and IVFs due to renal failure (1) Non-STEMI (non-ST elevated myocardial infarction) Status: Acute Assessment & Plan: - Cardiology consulted, appreciate recommendations, likely 2/2 uncontrolled XAVIER (2) Hypertension Status: Acute Assessment & Plan: - Likely cause of XAVIER, started Norvasc and metoprolol due to ARF Qualifiers: Qualified Codes: I10 - Essential (primary) hypertension (3) Epigastric abdominal pain Status: Acute Assessment & Plan: - Normal US at clinic, normal CT in ER, Consult General surgery due to concerns for ulcers given increase in NSAID use, Continue protonix (4) Acute renal failure Status: Acute Assessment & Plan: - likely 2/2 to dehydration vs NSAID use, stop NSAIDs, gentle hydration, continue to monitor Qualifiers: Qualified Codes: N17.9 - Acute kidney failure, unspecified (5) Elevated LFTs Status: Acute Assessment & Plan: - Acute hepatitis panel, normal US (6) DVT prophylaxis Status: Acute Assessment & Plan: - LACEY Naik MD Jun 18, 2021 15:53
[2021-06-18] MEDS: ENOXAPARIN 60 MG/0.6 ML (LOVENOX) SYR SC SCH (18:32)
[2021-06-18 19:32] VITALS: BP 170/96
[2021-06-19] VITALS (7 sets, daily range): BP systolic 107–200; BP diastolic 67–132
[2021-06-19] MEDS: ACETAMINOPHEN 500 MG TAB (TYLENOL) PO PRN ×2 (00:16→14:02)
[2021-06-19] MEDS ORDERED: hydrALAZINE (APESOLINE) 20 MG/ML VIAL IV ONE ×2 (00:30→05:45)
[2021-06-19] MEDS: NS IV 1000 ML 1,000 ML IV SCH ×2 (05:01→19:52)
[2021-06-19] MEDS ORDERED: hydrALAZINE (APESOLINE) 20 MG/ML VIAL ONE (05:42)
[2021-06-19 05:50] LABS: MEAN PLATELET VOLUME 11.4 fL (9.0-12.2); WHITE BLOOD COUNT 14.5 10^3/uL (4.3-11.0)
[2021-06-19] MEDS: morphine INJ 4 MG/ML 1 ML (VIAL/SYRINGE) IVP PRN (06:00)
[2021-06-19 06:15] LABS: ALBUMIN 3.2 GM/DL (3.2-4.5); BILIRUBIN,TOTAL 1.2 MG/DL (0.1-1.0); CALCIUM 7.9 MG/DL (8.5-10.1); CREATININE SERUM 2.98 MG/DL (0.60-1.30); POTASSIUM 3.7 MMOL/L (3.6-5.0); TOTAL PROTEIN 5.8 GM/DL (6.4-8.2)
--- NOTE | 2021-06-19 07:14 | Consultation - Surgery ---
DENISE BABIN 06/19/21 0713: History of Present Illness History of Present Illness Patient Consulted On(ricardo/time) 06/19/21 07:08 Date Seen by Provider: Jun 19, 2021 Time Seen by Provider: 05:00 Reason for Visit: Non-ST elevation myocardial infarction History of Present Illness 65yo F presents with epigastric abd pain that radiates towards the back and up on her right neck starting on Wednesday06/17/21 that progressively got worse over the days. Pt went to [facility] with nausea and loss of appetite resulting in negative US and reported [facility] found no issues. Pt then came to [facility] for follow up. Chest xray and abdominal CT with normal findings. Pending Hepatitis panel. Surgery was consulted for possible ulcers due to patient NSAID use. During exam, pt seemed distressed and heart rate started to spike around 110bpm and 22 RR. Patient complains of vomiting, headache, and dizziness. Denies any fever, chills, diarrhea, or chest pain. Allergies and Home Medications Allergies Coded Allergies: No Known Drug Allergies (Unverified , 06/17/21) Home Medications Acetaminophen 500 Mg Tablet, 500-1,000 MG PO Q8H PRN for PAIN-MILD (1-4), (Reported) Last Action: Reviewed Past Kfjbbeq-Htvytt-Bjwugf Hx Patient Social History Smoking Status: Former Smoker Alcohol Use?: Yes Have you traveled recently?: No Family Medical History Significant Family History: No Pertinent Family Hx Review of Systems-General Constitutional: No chills; dizziness, fever EENTM: No ear pain, No vision loss, No throat pain Respiratory: cough; No short of breath, No wheezing Cardiovascular: No chest pain, No edema, No palpitations Gastrointestinal: No abdominal pain (denies any tenderness at this moment), No diarrhea; vomiting Genitourinary: No dysuria, No frequency, No incontinence Musculoskeletal: no symptoms reported Skin: no symptoms reported Psychiatric/Neurological: Headache; Denies Numbness, Denies Tingling Physical Exam-General Problems Physical Exam Vital Signs Vital Signs - First Documented 06/17/21 06/18/21 16:27 04:00 Temp 36.5 Pulse 93 Resp 20 B/P (MAP) 227/134 (165) Pulse Ox 98 O2 Delivery Room Air O2 Flow Rate 2.00 Capillary Refill : Less Than 3 Seconds General Appearance: WD/WN, severe distress HEENT: PERRL/EOMI Neck: supple, normal inspection Respiratory: chest non-tender, crackles Cardiovascular: regular rate, rhythm, tachycardia Gastrointestinal: non tender, soft, abnormal bowel sounds Extremities: non-tender, normal inspection, no pedal edema, no calf tenderness Neurologic/Psychiatric: alert, normal mood/affect, oriented x 3 Skin: normal color, warm/dry Data Review Labs Laboratory Tests 06/19/21 05:05: White Blood Count 14.5H, Red Blood Count 3.29L, Hemoglobin 11.0L, Hematocrit 34L , Mean Corpuscular Volume 104H, Mean Corpuscular Hemoglobin 33, Mean Corpuscular Hemoglobin Concent 32, Red Cell Distribution Width 14.8H, Platelet Count 91L, Mean Platelet Volume 11.4, Percent Immature Platelet Fraction 7.5, Sodium Level 135, Potassium Level 3.7, Chloride Level 110H, Carbon Dioxide Level 15L, Anion Gap 10, Blood Urea Nitrogen 31H, Creatinine 2.98H, Estimat Glomerular Filtration Rate 16, BUN/Creatinine Ratio 10, Glucose Level 87, Calcium Level 7.9L, Corrected Calcium 8.5, Total Bilirubin 1.2H, Aspartate Amino Transf (AST/SGOT) 39H, Alanine Aminotransferase (ALT/SGPT) 24, Alkaline Phosphatase 85, Troponin I 0.073H, Total Protein 5.8L, Albumin 3.2, Triglycerides Level 104, Cholesterol Level 187, LDL Cholesterol Direct 98, VLDL Cholesterol 21, HDL Cholesterol 61H Assessment/Plan Assessment/Plan Assessment/Plan h/o Epigastric abdominal pain NSTEMI HTN ARF Elevated LFTs 06/19/21: EGD due to epigastric pain and possible ulcers from nsaid use Consult Cardiology for risk assessment Continue current medical management Review Hepatitis panel MEIR PETERSEN DO 06/19/211947: History of Present Illness History of Present Illness History of Present Illness Consult requested by Dr. Adames for epigastric abdominal pain Patient is a 65-year-old female whose had several days of headache nausea vomiting and epigastric abdominal pain. Patient today says that she is not having any epigastric pain currently. Patient states that her symptoms began on 06/17/2021. They have progressively gotten worse except for the epigastric abdominal pain has improved. Patient began having headaches and some dizziness nausea and vomiting. Patient states nothing really seems to make it better or worse. She had been taking NSAIDs on a fairly regular basis. The pain was moderate when she was having it and it radiated towards her back and up into her right neck. Patient had gallbladder ultrasound which was done at the clinic but it was reported normal by Dr. Adames. Patient had a CT scan of the abdomen pelvis which was unremarkable here. She is continued to have hypertension. Patient states that she also drinks approximately 5-6 beers per day. She has had worsening breathing and having some shortness of breath. She has desatted to where she required Vapotherm. She has no other complaints at this time denies any fever sweats chills or chest pain currently Allergies and Home Medications Allergies Coded Allergies: No Known Drug Allergies (Unverified , 06/17/21) Home Medications Acetaminophen 500 Mg Tablet, 500-1,000 MG PO Q8H PRN for PAIN-MILD (1-4), (Reported) Last Action: Reviewed Patient Home Medication List Home Medication List Reviewed: Yes Past Qregufe-Teynvt-Qiaubd Hx Reviewed Nursing Assessment Reviewed/Agree w Nursing PMH: Yes Family Medical History Significant Family History: No Pertinent Family Hx Review of Systems-General Constitutional: chills, dizziness, fever EENTM: No ear pain, No vision loss, No throat pain Respiratory: cough, short of breath; No wheezing Cardiovascular: chest pain; No edema, No palpitations Gastrointestinal: abdominal pain (Epigastric); No diarrhea; nausea, vomiting Musculoskeletal: No no symptoms reported; back pain; No joint pain Skin: No change in color, No change in hair/nails Psychiatric/Neurological: Denies Anxiety, Denies Depressed; Headache; Denies Numbness, Denies Tingling All Other Systems Reviewed Negative Unless Noted: Yes (Negative excepted noted.) Assessment/Plan Assessment/Plan Assessment/Plan Epigastric abdominal pain-currently improved NSTEMI Acute respiratory failure HTN ARF Elevated LFTs Chronic alcohol use Currently on PPI. Would continue. Patient recommended EGD once cleared likely as outpatient would also recommend colonoscopy since she has never had 1. Continue medical management to try to improve hypertension Hepatitis panel pending Patient on Vapotherm currently. She is resting comfortably and doing well. Improved oxygenation. Supervisory-Addendum Brief Verification & Attestation Participated in pt care: history, MDM, physical Personally performed: exam, history, MDM, supervision of care Care discussed with: Medical Student Procedures: n/a Results interpretation: Verified all documentation Verification and Attestation of Medical Student E/M Service A medical student performed and documented this service in my presence. I reviewed and verified all information documented by the medical student and made modifications to such information, when appropriate. I personally performed the physical exam and medical decision making. Meir Petersen, Jun 19, 2021,19:50 DENISE BABIN Jun 19, 2021 07:13 MEIR PETERSEN DO Jun 19, 2021 19:48
[2021-06-19] MEDS ORDERED: FUROSEMIDE 40 MG/4 ML INJ (LASIX) IVP ONE (08:15)
--- NOTE | 2021-06-19 08:16 | Cardiology Progress Note ---
Subjective Date Seen by Provider: Jun 19, 2021 Time Seen by Provider: 08:10 Subjective/Events-last exam Patient is laying down in bed, had rough night with significant headache and significantly elevated blood pressure responded initially to hydralazine, required a second dose around 5 in the morning had some nosebleed. Became short of breath, on Vapotherm now Review of Systems General: No Chills, No Night Sweats; Fatigue; No Malaise, No Appetite; Other (Headache) HEENT: No Head Aches, No Visual Changes, No Eye Pain, No Ear Pain, No Dysphasia, No Sinus Congestion, No Post Nasal Drip, No Sore Throat, No Other Pulmonary: Dyspnea; No Cough, No Pleuritic Chest Pain, No Other Cardiovascular: No: Chest Pain, Palpitations, Orthopnea, Paroxysmal Noc. Dyspnea, Edema, Lt Headedness, Other Objective-Cardiology Exam Last Set of Vital Signs Vital Signs 06/19/21 06/19/21 06/19/21 00:50 04:00 07:24 Temp 37.4 Pulse 76 Resp 16 B/P (MAP) 156/91 (112) Pulse Ox 93 O2 Delivery Vapotherm O2 Flow Rate 30.00 FiO2 70 I&O Intake and Output 06/19/21 00:00 Intake Total 1100 ml Balance 1100 ml Intake Oral 900 ml IV Total 200 ml # Voids 4 General: Alert, Oriented X3, Cooperative HEENT: Atraumatic, PERRLA Neck: Supple, No JVD, No Thyromegaly Lungs: Normal Air Movement, Other (Bilateral rhonchi) Heart: Regular Rate, Normal S1, Normal S2, No Murmurs, Other (S3 present) Abdomen: Normal Bowel Sounds, Soft, No Tenderness, No Hepatosplenomegaly, No Masses Extremities: No Clubbing, No Cyanosis, No Edema, Normal Pulses, No Tenderness/Swelling Skin: No Rashes, No Breakdown, No Significant Lesion Neuro: Normal Gait, Normal Speech, Strength at 5/5 X4 Ext, Normal Tone, Sen sation Intact Psych/Mental Status: Mental Status NL, Mood NL Results Lab Laboratory Tests 06/19/21 05:05 A/P-Cardiology Admission Diagnosis Acute renal failure Non-ST elevation myocardial infarction Malignant hypertension Hyperlipidemia Assessment/Plan Acute renal failure, unknown etiology, has been taking increasing dose of NSAID recently over the past few days. Could be secondary to malignant hypertension, receiving IV fluids, still worsening renal function probably due to elevated blood pressure. Malignant hypertension, difficult to control, cannot tolerate KEVIN inhibitor and/or ARB due to renal failure. I will increase Toprol to 50 mg daily and adding clonidine. Congestive heart failure, flash pulmonary edema probably secondary to malignant hypertension, acute left ventricular diastolic dysfunction. I will give her a single dose of Lasix 20 mg and evaluate response, monitor renal function closely Elevated troponin level, non-ST elevation myocardial infarction, no active chest pain, mainly her abdominal pain appears to be reproducible. No acute EKG changes, it could be secondary to the renal failure. Echo showed mild LVH with pulmonary hypertension with PA pressure 60 to 65 mmHg. Moderate tricuspid regurgitation. Continue on aspirin and Lovenox for now Lipid profile was done showing acceptable values. Continue to monitor VERO MILLER MD Jun 19, 2021 08:16
[2021-06-19] MEDS: PANTOPRAZOLE 40 MG (PROTONIX) TAB PO SCH (08:41)
[2021-06-19] MEDS: ASPIRIN E.C. 325 MG (ECOTRIN) TABLET PO SCH (08:41)
[2021-06-19] MEDS: meTOproloL SUCCINATE 50 MG (TOPROL XL) TAB PO SCH ×2 (08:41→08:42)
[2021-06-19] MEDS: cloNIDine 0.1 MG (CATAPRES) TAB PO SCH ×2 (08:41→19:49)
[2021-06-19] MEDS: amLODIPine 5 MG (NORVASC) TAB PO SCH (08:41)
--- NOTE | 2021-06-19 10:14 | Diagnostic Imaging Report ---
INDICATION: Abdominal pain and back pain. Proximal abdominal aorta measures 2.3 cm AP x 2.6 cm transverse. Midabdominal aorta measures 1.8 cm AP x 2.6 cm transverse. The distal aorta could not be visualized due to bowel gas. The right and left iliacs cannot be visualized due to bowel gas. No periaortic fluid collection is seen. IMPRESSION: Normal caliber proximal and mid abdominal aorta. The distal aorta and iliacs could not be visualized due to bowel gas. Dictated by: Dictated on workstation # [id number]
--- NOTE | 2021-06-19 11:14 | Diagnostic Imaging Report ---
INDICATION: Renal failure, pain. FINDINGS: The renal artery ostia and proximal thirds of the bilateral renal arteries are obscured by gas. The mid to distal thirds of the bilateral renal arteries showed normal systolic upstrokes and waveforms with a normal renal arterial to aortic systolic velocity ratios. There were no findings of hemodynamically significant degrees of renal arterial stenosis. The right kidney is 9.7 cm and the left 9.1 cm. Cortical thickness and parenchymal echotextures were unremarkable. No subcapsular or perinephric fluid collection. There is patency of the bilateral ureteral jets confirmed with color Doppler evaluation of the unremarkable appearing urinary bladder. IMPRESSION: Unremarkable retroperitoneal ultrasound. Dictated by: Dictated on workstation # [id number]
--- NOTE | 2021-06-19 14:30 | Progress Note ---
Subjective Subjective/Events-last exam Called multiple times ON due to severe XAVIER and elevated blood pressure. Patient was given 2 doses of hydralazine. This AM patient seemed more short of breath and oxygen was in the 70s, she was placed on Vapotherm. Now comfortable on vapotherm, laying in bed. Tolerating PO diet. XAVIER improved and blood pressure imp roved. Review of Systems HEENT: Head Aches, Visual Changes Pulmonary: Dyspnea, Cough Cardiovascular: No: Chest Pain, Palpitations, Edema Gastrointestinal: Nausea; No: Abdominal Pain Objective Exam Last Set of Vital Signs Vital Signs Date Time Temp Pulse Resp B/P (MAP) Pulse Ox O2 Delivery O2 Flow Rate FiO2 06/19/21 13:04 Vapotherm 30.00 60.00 06/19/21 13:00 92 06/19/21 12:47 37.0 06/19/21 12:46 19 157/100 (119) 98 06/19/21 10:11 70 Capillary Refill : Less Than 3 Seconds I&O Intake and Output 06/19/21 00:00 Intake Total 1100 ml Balance 1100 ml Intake Oral 900 ml IV Total 200 ml # Voids 4 General: Alert, Oriented X3, Mild Distress Lungs: Other (Diffuse crackles and increased work of breathing) Heart: Regular Rate, No Murmurs Abdomen: Normal Bowel Sounds, Soft, Other (epigastric ttp, mild gaurding with deep palpation, normal bowel sounds) Extremities: No Edema, No Tenderness/Swelling Neuro: Normal Speech, Sensation Intact, Cranial Nerves 3-12 NL Results/Procedures Lab Laboratory Tests 06/19/21 05:05: White Blood Count 14.5H, Red Blood Count 3.29L, Hemoglobin 11.0L, Hematocrit 34L , Mean Corpuscular Volume 104H, Mean Corpuscular Hemoglobin 33, Mean Corpuscular Hemoglobin Concent 32, Red Cell Distribution Width 14.8H, Platelet Count 91L, Mean Platelet Volume 11.4, Percent Immature Platelet Fraction 7.5, Sodium Level 135, Potassium Level 3.7, Chloride Level 110H, Carbon Dioxide Level 15L, Anion Gap 10, Blood Urea Nitrogen 31H, Creatinine 2.98H, Estimat Glomerular Filtration Rate 16, BUN/Creatinine Ratio 10, Glucose Level 87, Calcium Level 7.9L, Corrected Calcium 8.5, Total Bilirubin 1.2H, Aspartate Amino Transf (AST/SGOT) 39H, Alanine Aminotransferase (ALT/SGPT) 24, Alkaline Phosphatase 85, Troponin I 0.073H, Total Protein 5.8L, Albumin 3.2, Triglycerides Level 104, Cholesterol Level 187, LDL Cholesterol Direct 98, VLDL Cholesterol 21, HDL Cholesterol 61H 06/19/21 09:00: Influenza Type A (RT-PCR) Not Detected, Influenza Type B (RT-PCR) Not Detected, SARS-CoV-2 RNA (RT-PCR) Not Detected Assessment/Plan Assessment/Plan (1) Acute respiratory failure Status: Acute Assessment & Plan: 06/19: Covid Neg, no fever or chills, Patient on Vapotherm, will titrate as tolerated, Dr Yin gave IV lasix x 1 today, likely 2/2 Flash pulmonary edema Qualifiers: Qualified Codes: J96.01 - Acute respiratory failure with hypoxia (2) Hypertensive urgency, malignant Status: Acute Assessment & Plan: 06/19: Recieved 2 doses of hydralazine last night, Clonidine added by Dr Yin (3) Non-STEMI (non-ST elevated myocardial infarction) Status: Acute Assessment & Plan: - Cardiology consulted, appreciate recommendations, likely 2/2 uncontrolled XAVIER (4) Acute renal failure Status: Acute Assessment & Plan: - likely 2/2 to dehydration vs NSAID use, stop NSAIDs, gent le hydration, continue to monitor 06/19: Gentle hydration, continue to trend, Unable to tolerate ACI/ARB 2/2 renal failure Qualifiers: Qualified Codes: N17.9 - Acute kidney failure, unspecified (5) Hypertension Status: Acute Assessment & Plan: - Likely cause of XAVIER, started Norvasc and metoprolol due to ARF Qualifiers: Qualified Codes: I10 - Essential (primary) hypertension (6) Epigastric abdominal pain Status: Acute Assessment & Plan: - Normal US at clinic, normal CT in ER, Consult General surgery due to concerns for ulcers given increase in NSAID use, Continue protonix 06/19: Outpatient EGD (7) Alcohol use Status: Chronic Assessment & Plan: 06/19: 5-6 beers/day, CIWS added, Thiamine/FA added, possible cause of elevated blood pressure (8) Elevated LFTs Status: Acute Assessment & Plan: - Acute hepatitis panel, normal US (9) DVT prophylaxis Status: Acute Assessment & Plan: - LACEY Naik MD Jun 19, 2021 14:30
[2021-06-19] MEDS: FOLIC ACID 1 MG TAB PO SCH (15:13)
[2021-06-19] MEDS: THIAMINE 100 MG (VITAMIN B-1) TAB PO SCH (15:13)
[2021-06-19] MEDS: ENOXAPARIN 60 MG/0.6 ML (LOVENOX) SYR SC SCH (18:14)
[2021-06-19 22:18] LABS: HEPATITIS C ANTIBODY C Non-Reactive (Non-Reactive)
[2021-06-20 04:00] VITALS: BP 137/88
[2021-06-20] MEDS: THIAMINE 100 MG (VITAMIN B-1) TAB PO SCH (06:03)
[2021-06-20 06:28] LABS: BASOPHILS % (AUTO) 0 % (0-10); EOSINOPHILS # (AUTO) 0.1 10^3/uL (0.0-0.3); EOSINOPHILS % (AUTO) 1 % (0-10); HEMATOCRIT 29 % (35-52); HEMOGLOBIN 9.3 g/dL (11.5-16.0); LYMPHOCYTES # (AUTO) 1.5 10^3/uL (1.0-4.0); LYMPHOCYTES % (AUTO) 11 % (12-44); MEAN CORPUSCULAR HEMOGLOBIN 33 pg (25-34); MEAN CORPUSCULAR HGB CONC 32 g/dL (32-36); MEAN CORPUSCULAR VOLUME 103 fL (80-99); MEAN PLATELET VOLUME 11.6 fL (9.0-12.2); MONOCYTES # (AUTO) 1.6 10^3/uL (0.0-1.0); MONOCYTES % (AUTO) 11 % (0-12); NEUTROPHILS # (AUTO) 10.9 10^3/uL (1.8-7.8); NEUTROPHILS % (AUTO) 76 % (42-75); PLATELET COUNT 108 10^3/uL (130-400); WHITE BLOOD COUNT 14.3 10^3/uL (4.3-11.0)
[2021-06-20 06:39] LABS: ALBUMIN 2.9 GM/DL (3.2-4.5); POTASSIUM 3.4 MMOL/L (3.6-5.0)
[2021-06-20 06:40] LABS: CALCIUM 7.8 MG/DL (8.5-10.1)
[2021-06-20 06:41] LABS: TOTAL PROTEIN 5.4 GM/DL (6.4-8.2)
[2021-06-20 06:43] LABS: BILIRUBIN,TOTAL 1.1 MG/DL (0.1-1.0)
[2021-06-20 06:45] LABS: CREATININE SERUM 3.5 MG/DL (0.60-1.30)
--- NOTE | 2021-06-20 07:09 | Progress Note - Surgery ---
ADILENE BABINEN 06/20/21 0709: Subjective Date Seen by a Provider: Jun 20, 2021 Time Seen by a Provider: 05:00 Subjective/Events-last exam Pt on regular diet with no salt. Complains of bilateral intercostal pain, SOB, and loss of appetite. Denies any bowel movements. Denies any fever, chills, vomiting, diarrhea, or chest pain. Hepatitis panel negative. Aorta US/Renal angiogram unremarkable. Review of Systems General: No Chills, No Fatigue, No Appetite HEENT: No Head Aches, No Visual Changes, No Sore Throat Pulmonary: Dyspnea; No Cough Cardiovascular: No: Chest Pain, Palpitations, Edema Gastrointestinal: No: Nausea, Vomiting, Diarrhea Genitourinary: No Dysuria, No Frequency, No Incontinence Musculoskeletal: other (bilateral intercostal pain); No: back pain, leg pain Neurological: No: Weakness, Numbness, Seizures Objective Exam Vital Signs Date Time Temp Pulse Resp B/P (MAP) Pulse Ox O2 Delivery O2 Flow Rate FiO2 06/20/21 04:00 37.1 06/20/21 04:00 75 17 137/88 (104) 96 Vapotherm 30.00 50.00 06/20/21 01:00 76 06/20/21 00:33 37.2 06/19/21 21:00 Vapotherm 30.00 70 06/19/21 20:50 96 Vapotherm 30.00 50 06/19/21 19:58 37.4 86 24 150/93 (112) 96 Vapotherm 30.00 50.00 06/19/21 19:00 84 06/19/21 15:54 37.0 79 21 107/67 (80) 92 Vapotherm 30.00 50.00 06/19/21 15:31 Vapotherm 30.00 50.00 06/19/21 15:05 97 Vapotherm 30.00 60 06/19/21 13:04 Vapotherm 30.00 60.00 06/19/21 13:00 92 06/19/21 12:47 37.0 06/19/21 12:46 80 19 157/100 (119) 98 Vapotherm 30.00 50.00 06/19/21 12:00 78 15 134/84 (101) 95 Vapotherm 06/19/21 10:11 94 Vapotherm 30.00 70 06/19/21 09:00 Vapotherm 30.00 70 06/19/21 08:00 36.5 86 18 162/113 (129) 92 Vapotherm 06/19/21 07:24 93 Vapotherm 30.00 70 06/19/21 07:19 92 Vapotherm 30.00 70 I & O 06/20/21 07:00 Intake Total 1950 ml Output Total 1875 ml Balance 75 ml Capillary Refill : Less Than 3 Seconds General Appearance: WD/WN HEENT: PERRL/EOMI Neck: Normal Inspection, Non Tender, Supple Respiratory: Chest Non Tender, Normal Breath Sounds Cardiovascular: Regular Rate, Rhythm, No Murmur Gastrointestinal: normal bowel sounds, non tender, soft, no organomegaly, no pulsatile mass Extremity: Normal Inspection, Non Tender, No Calf Tenderness Neurologic/Psychiatric: Alert, Oriented x3, Normal Mood/Affect Skin: Normal Color, Warm/Dry Results Lab Laboratory Tests 06/19/21 09:00: Influenza Type A (RT-PCR) Not Detected, Influenza Type B (RT-PCR) Not Detected, SARS-CoV-2 RNA (RT-PCR) Not Detected 06/20/21 06:00: White Blood Count 14.3H, Red Blood Count 2.80L, Hemoglobin 9.3L, Hematocrit 29L, Mean Corpuscular Volume 103H, Mean Corpuscular Hemoglobin 33, Mean Corpuscular Hemoglobin Concent 32, Red Cell Distribution Width 14.9H, Platelet Count 108L, Mean Platelet Volume 11.6, Immature Granulocyte % (Auto) 1, Neutrophils (%) (Auto) 76H, Lymphocytes (%) (Auto) 11L, Monocytes (%) (Auto) 11, Eosinophils (%) (Auto) 1, Basophils (%) (Auto) 0, Neutrophils # (Auto) 10.9H, Lymphocytes # (Auto) 1.5, Monocytes # (Auto) 1.6H, Eosinophils # (Auto) 0.1, Basophils # (Auto) 0.0, Immature Granulocyte # (Auto) 0.2H, Sodium Level 135, Potassium Level 3.4L, Chloride Level 109H, Carbon Dioxide Level 16L, Anion Gap 10, Blood Urea Nitrogen 42H, Creatinine 3.50#H, Estimat Glomerular Filtration Rate 13, BUN/Creatinine Ratio 12, Glucose Level 90, Calcium Level 7.8L, Corrected Calcium 8.7, Total Bilirubin 1.1H, Aspartate Amino Transf (AST/SGOT) 36H, Alanine Aminotransferase (ALT/SGPT) 21, Alkaline Phosphatase 79, Total Protein 5.4L, Albumin 2.9L Assessment/Plan Assessment/Plan Assessment/Plan Epigastric abdominal pain-currently improved NSTEMI Acute respiratory failure HTN ARF Elevated LFTs Chronic alcohol use Further patient education on EGD/Colonoscopy Continue PPI Continue medical management of HTN Hepatitis panel reviewed and negative findings Improved oxygenation: 96% O2 Vapotherm on 30L/min 50% FiO2 LULU PETERSEN DO 06/20/211955: Subjective Subjective/Events-last exam Patient remains on Vapotherm. Unable to be titrated off. Patient not really having any significant epigastric abdominal pain any longer. Just a dull ache. Tolerating diet. Denies any new complaints. Denies any fever sweats chills or chest pain at this time. Patient creatinine increasing Objective Exam General Appearance: No Apparent Distress (Laying in bed on Vapotherm) HEENT: PERRL/EOMI, Normal ENT Inspection Neck: Normal Inspection, Non Tender, Supple Respiratory: Chest Non Tender, No Accessory Muscle Use, No Respiratory Distress Cardiovascular: Regular Rate, Rhythm, No JVD Gastrointestinal: non tender (No pain elicited on exam), soft, no organomegaly; No tenderness Extremity: Normal Inspection, Non Tender Neurologic/Psychiatric: Alert, Oriented x3 Skin: Normal Color, Warm/Dry Lymphatic: No Adenopathy Assessment/Plan Assessment/Plan Assessment/Plan Epigastric abdominal pain-currently improved NSTEMI Acute respiratory failure HTN ARF Elevated LFTs Chronic alcohol use Discussed will need egd/colonoscopy as outpatient Continue PPI Continue medical management of HTN Hepatitis panel reviewed and negative findings Vapotherm Discussed with Dr. Adames, planning transfer due to need for nephrology. Will need outpatient follow up-endoscopy Supervisory-Addendum Brief Verification & Attestation Participated in pt care: history, MDM, physical Personally performed: exam, history, MDM, supervision of care Care discussed with: Medical Student Procedures: n/a Results interpretation: Verified all documentation Verification and Attestation of Medical Student E/M Service A medical student performed and documented this service in my presence. I reviewed and verified all information documented by the medical student and made modifications to such information, when appropriate. I personally performed the physical exam and medical decision making. Lulu Petersen Jun 20, 2021,19:55 DENISE BABIN Jun 20, 2021 07:09 LULU PETERSEN DO Jun 20, 2021 19:56
[2021-06-20 07:16] VITALS: BP 157/97
[2021-06-20] MEDS: ACETAMINOPHEN 500 MG TAB (TYLENOL) PO PRN ×2 (08:20→19:48)
[2021-06-20] MEDS: PANTOPRAZOLE 40 MG (PROTONIX) TAB PO SCH (08:21)
[2021-06-20] MEDS: FOLIC ACID 1 MG TAB PO SCH (08:21)
[2021-06-20] MEDS: ASPIRIN E.C. 325 MG (ECOTRIN) TABLET PO SCH (08:21)
[2021-06-20] MEDS: cloNIDine 0.1 MG (CATAPRES) TAB PO SCH ×2 (08:21→19:48)
[2021-06-20] MEDS: amLODIPine 5 MG (NORVASC) TAB PO SCH (08:21)
[2021-06-20] MEDS: meTOproloL SUCCINATE 50 MG (TOPROL XL) TAB PO SCH ×2 (08:21→09:13)
[2021-06-20 12:25] VITALS: BP 131/105
[2021-06-20] MEDS: morphine INJ 4 MG/ML 1 ML (VIAL/SYRINGE) IVP PRN (13:33)
[2021-06-20] MEDS: NS IV 1000 ML 1,000 ML IV SCH (13:33)
--- NOTE | 2021-06-20 15:12 | Progress Note ---
Subjective Subjective/Events-last exam Patient feels ok but unable to tolerate oxygen titration. Tolerating PO diet. Review of Systems Pulmonary: Dyspnea, Cough Cardiovascular: No: Chest Pain, Palpitations Gastrointestinal: Other (low appetite); No: Nausea, Vomiting Genitourinary: No Dysuria, No Frequency, No Hematuria Neurological: Weakness, Incoordination Objective Exam Last Set of Vital Signs Vital Signs Date Time Temp Pulse Resp B/P (MAP) Pulse Ox O2 Delivery O2 Flow Rate FiO2 06/20/21 12:34 84 06/20/21 12:25 36.5 21 131/105 (114) 96 Vapotherm 30.00 50.00 06/20/21 12:00 50 Capillary Refill : Less Than 3 Seconds I&O Intake and Output 06/20/21 00:00 Intake Total 1700 ml Output Total 1475 ml Balance 225 ml Intake Oral 700 ml IV Total 1000 ml Output Urine Total 1475 ml # Voids 2 General: Alert, Oriented X3, Cooperative, Mild Distress Lungs: Other (diminished breath sounds, wheezing) Heart: Regular Rate, No Murmurs Abdomen: Normal Bowel Sounds, Soft, No Masses Extremities: Other (1+ pitting edema) Neuro: Normal Speech Results/Procedures Lab Laboratory Tests 06/20/21 06:00: White Blood Count 14.3H, Red Blood Count 2.80L, Hemoglobin 9.3L, Hematocrit 29L, Mean Corpuscular Volume 103H, Mean Corpuscular Hemoglobin 33, Mean Corpuscular Hemoglobin Concent 32, Red Cell Distribution Width 14.9H, Platelet Count 108L, Mean Platelet Volume 11.6, Immature Granulocyte % (Auto) 1, Neutrophils (%) (Auto) 76H, Lymphocytes (%) (Auto) 11L, Monocytes (%) (Auto) 11, Eosinophils (%) (Auto) 1, Basophils (%) (Auto) 0, Neutrophils # (Auto) 10.9H, Lymphocytes # (Auto) 1.5, Monocytes # (Auto) 1.6H, Eosinophils # (Auto) 0.1, Basophils # (Auto) 0.0, Immature Granulocyte # (Auto) 0.2H, Sodium Level 135, Potassium Level 3.4L, Chloride Level 109H, Carbon Dioxide Level 16L, Anion Gap 10, Blood Urea Nitrogen 42H, Creatinine 3.50#H, Estimat Glomerular Filtration Rate 13, BUN/Creatinine Ratio 12, Glucose Level 90, Calcium Level 7.8L, Corrected Calcium 8.7, Total Bilirubin 1.1H, Aspartate Amino Transf (AST/SGOT) 36H, Alanine Aminotransferase (ALT/SGPT) 21, Alkaline Phosphatase 79, Total Protein 5.4L, Albumin 2.9L Assessment/Plan Assessment/Plan (1) Acute respiratory failure Status: Acute Assessment & Plan: 06/19: Covid Neg, no fever or chills, Patient on Vapotherm, will titrate as tolerated, Dr Yin gave IV lasix x 1 today, likely 2/2 Flash pulmonary edema 06/20: Unable to titrate oxygen, holding lasix 2/2 worsening kidney function Qualifiers: Qualified Codes: J96.01 - Acute respiratory failure with hypoxia (2) Hypertensive urgency, malignant Status: Acute Assessment & Plan: 06/19: Recieved 2 doses of hydralazine last night, Clonidine added by Dr Yin 06/20: Blood pressure better controlled today (3) Non-STEMI (non-ST elevated myocardial infarction) Status: Acute Assessment & Plan: - Cardiology consulted, appreciate recommendations, likely 2/2 uncontrolled XAVIER (4) Acute renal failure Status: Acute Assessment & Plan: - likely 2/2 to dehydration vs NSAID use, stop NSAIDs, gentle hydration, continue to monitor 06/19: Gentle hydration, continue to trend, Unable to tolerate ACI/ARB 2/2 renal failure 06/20: Cr trending up, holding lasix Qualifiers: Qualified Codes: N17.9 - Acute kidney failure, unspecified (5) Hypertension Status: Acute Assessment & Plan: - Likely cause of XAVIER, started Norvasc and metoprolol due to ARF Qualifiers: Qualified Codes: I10 - Essential (primary) hypertension (6) Epigastric abdominal pain Status: Acute Assessment & Plan: - Normal US at clinic, normal CT in ER, Consult General surgery due to concerns for ulcers given increase in NSAID use, Continue protonix 06/19: Outpatient EGD (7) Alcohol use Status: Chronic Assessment & Plan: 06/19: 5-6 beers/day, CIWS added, Thiamine/FA added, possible cause of elevated blood pressure (8) Elevated LFTs Status: Acute Assessment & Plan: - Acute hepatitis panel, normal US (9) DVT prophylaxis Status: Acute Assessment & Plan: - Lovenox (10) Discharge planning issues Assessment & Plan: 06/20: Cr worsening and unable to titrate oxygen, discussed wi th family that I would recommend transfer to hospital with nephrology, mission control called to look for transfer bed. LACEY JACOBS MD Jun 20, 2021 15:12
[2021-06-20 16:34] VITALS: BP 141/91
--- NOTE | 2021-06-20 17:02 | Progress Note - Cardiology ---
Cardiology SOAP Progress Note Objective: I&O/Vital Signs 06/20/21 06/20/21 06/20/21 06/20/21 07:00 07:16 07:58 08:40 Temp 37.0 Pulse 81 81 Resp 21 B/P (MAP) 157/97 (117) Pulse Ox 91 90 O2 Delivery Vapotherm Vapotherm Vapotherm O2 Flow Rate 30.00 30.00 30.00 50.00 FiO2 50 50 06/20/21 06/20/21 06/20/21 06/20/21 12:00 12:25 12:34 15:25 Temp 36.5 Pulse 78 84 Resp 21 B/P (MAP) 131/105 (114) Pulse Ox 94 96 96 O2 Delivery Vapotherm Vapotherm Vapotherm O2 Flow Rate 30.00 30.00 25.00 50.00 FiO2 50 50 06/20/21 16:34 Temp 37.2 Pulse 78 Resp 20 B/P (MAP) 141/91 (108) Pulse Ox 90 O2 Delivery Vapotherm O2 Flow Rate 30.00 50.00 06/20/21 00:00 Intake Total 1700 ml Output Total 1475 ml Balance 225 ml Results/Procedures: Labs Laboratory Tests 06/20/21 06:00: White Blood Count 14.3H, Red Blood Count 2.80L, Hemoglobin 9.3L, Hematocrit 29L, Mean Corpuscular Volume 103H, Mean Corpuscular Hemoglobin 33, Mean Corpuscular Hemoglobin Concent 32, Red Cell Distribution Width 14.9H, Platelet Count 108L, Mean Platelet Volume 11.6, Immature Granulocyte % (Auto) 1, Neutrophils (%) (Auto) 76H, Lymphocytes (%) (Auto) 11L, Monocytes (%) (Auto) 11, Eosinophils (%) (Auto) 1, Basophils (%) (Auto) 0, Neutrophils # (Auto) 10.9H, Lymphocytes # (Auto) 1.5, Monocytes # (Auto) 1.6H, Eosinophils # (Auto) 0.1, Basophils # (Auto) 0.0, Immature Granulocyte # (Auto) 0.2H, Sodium Level 135, Potassium Level 3.4L, Chloride Level 109H, Carbon Dioxide Level 16L, Anion Gap 10, Blood Urea Nitrogen 42H, Creatinine 3.50#H, Estimat Glomerular Filtration Rate 13, BUN/Creatinine Ratio 12, Glucose Level 90, Calcium Level 7.8L, Corrected Calcium 8.7, Total Bilirubin 1.1H, Aspartate Amino Transf (AST/SGOT) 36H, Alanine Aminotransferase (ALT/SGPT) 21, Alkaline Phosphatase 79, Total Protein 5.4L, Albumin 2.9L Laboratory Tests 06/19/21 05:05 06/20/21 06:00 A/P: Assessment: Malignant hypertension - see below for end-organ involvement Acute renal failure: malignant hypertension vs NSAID use - renal failure appears to continue to worsen Acute diastolic CHF, currently clinically compensated - Echo on 06/18/21: Mild to mod conc LVH, LVEF 50-55%, grade 1 diastolic dysfunction, hypokinesis of apex, mod TR with PA pressure 60 to 65 mmHg Elevated troponin, likely due to type 2 [place] due uncontrolled hypertension Plan: * Treat hypertension. Continue current regimen and adjust as needed. Not suitable for ARB or KEVIN-inhib (ac renal failure) * Avoid NSAID * Monitor labs MERYL LAGUNAS MD FACP [facility] Jun 20, 2021 17:02
[2021-06-20] MEDS: ENOXAPARIN 60 MG/0.6 ML (LOVENOX) SYR SC SCH (18:08)
[2021-06-20 20:52] VITALS: BP 150/96
[2021-06-21] VITALS: BP 106/82
[2021-06-21 04:15] VITALS: BP 140/87
[2021-06-21 05:46] LABS: BASOPHILS % (AUTO) 0 % (0-10); EOSINOPHILS # (AUTO) 0.2 10^3/uL (0.0-0.3); EOSINOPHILS % (AUTO) 1 % (0-10); HEMATOCRIT 28 % (35-52); HEMOGLOBIN 8.9 g/dL (11.5-16.0); LYMPHOCYTES # (AUTO) 1.4 10^3/uL (1.0-4.0); LYMPHOCYTES % (AUTO) 10 % (12-44); MEAN CORPUSCULAR HEMOGLOBIN 33 pg (25-34); MEAN CORPUSCULAR HGB CONC 32 g/dL (32-36); MEAN CORPUSCULAR VOLUME 103 fL (80-99); MEAN PLATELET VOLUME 11.2 fL (9.0-12.2); MONOCYTES # (AUTO) 1.7 10^3/uL (0.0-1.0); MONOCYTES % (AUTO) 11 % (0-12); NEUTROPHILS # (AUTO) 11.4 10^3/uL (1.8-7.8); NEUTROPHILS % (AUTO) 76 % (42-75); PLATELET COUNT 138 10^3/uL (130-400); WHITE BLOOD COUNT 14.9 10^3/uL (4.3-11.0)
[2021-06-21] MEDS: THIAMINE 100 MG (VITAMIN B-1) TAB PO SCH (05:58)
[2021-06-21 06:01] LABS: ALBUMIN 2.8 GM/DL (3.2-4.5); POTASSIUM 3.5 MMOL/L (3.6-5.0)
[2021-06-21 06:02] LABS: CALCIUM 7.9 MG/DL (8.5-10.1)
[2021-06-21 06:03] LABS: LYMPHOCYTES % (MANUAL) 12 %; MONOCYTES % (MANUAL) 11 %; NEUTROPHILS % (MANUAL) 77 %; RBC MORPH NORMAL; TOTAL PROTEIN 5.4 GM/DL (6.4-8.2)
[2021-06-21 06:07] LABS: CREATININE SERUM 3.61 MG/DL (0.60-1.30); PHOSPHORUS 3.3 MG/DL (2.3-4.7)
[2021-06-21 06:10] LABS: MAGNESIUM 1.8 MG/DL (1.6-2.4)
[2021-06-21 07:23] VITALS: BP 148/95
--- NOTE | 2021-06-21 07:38 | Progress Note - Hospitalist ---
Subjective HPI/CC On Admission Date Seen by Provider: Jun 21, 2021 Objective Exam Vital Signs Vital Signs Date Time Temp Pulse Resp B/P (MAP) Pulse Ox O2 Delivery O2 Flow Rate FiO2 06/21/21 10:36 92 High Flow N/C 8.00 06/21/21 08:58 45 06/21/21 07:23 36.9 90 20 148/95 (112) Capillary Refill : Less Than 3 Seconds Results/Procedures Lab Laboratory Tests 06/21/21 05:40 Patient resulted labs reviewed. DAO OROZCO DO Jun 21, 2021 07:38
[2021-06-21] MEDS: meTOproloL SUCCINATE 50 MG (TOPROL XL) TAB PO SCH ×2 (07:40)
[2021-06-21] MEDS: amLODIPine 5 MG (NORVASC) TAB PO SCH (07:40)
[2021-06-21] MEDS: ASPIRIN E.C. 325 MG (ECOTRIN) TABLET PO SCH (07:40)
[2021-06-21] MEDS: cloNIDine 0.1 MG (CATAPRES) TAB PO SCH (07:40)
[2021-06-21] MEDS: FOLIC ACID 1 MG TAB PO SCH (07:40)
[2021-06-21] MEDS: NS IV 1000 ML 1,000 ML IV SCH (07:40)
[2021-06-21] MEDS: PANTOPRAZOLE 40 MG (PROTONIX) TAB PO SCH (07:40)
[2021-06-21] MEDS: ACETAMINOPHEN 500 MG TAB (TYLENOL) PO PRN (08:08)
[2021-06-21] MEDS ORDERED: AMLO-250 PO (11:33)
[2021-06-21] MEDS ORDERED: FOLI1TAB33 PO (11:33)
[2021-06-21] MEDS ORDERED: CLN.1T PO (11:33)
[2021-06-21] MEDS ORDERED: METO50TA7 PO (11:33)
[2021-06-21] MEDS ORDERED: PANT40TA52 PO (11:33)
[2021-06-21] MEDS ORDERED: ACET-93 PO (11:33)
[2021-06-21] MEDS ORDERED: THIA100T80 PO (11:33)
[2021-06-21] MEDS ORDERED: ASPI325T32 PO (11:33)
[2021-06-21] MEDS ORDERED: ENOX60DI7 SC (11:33)
--- NOTE | 2021-06-21 11:33 | Discharge Summary ---
Discharge Summary Hospital Course Was the Problem List Reviewed?: Yes Problems/Dx: (1) Acute renal failure Status: Acute Qualifiers: Qualified Codes: N17.9 - Acute kidney failure, unspecified (2) Hypertensive urgency, malignant Status: Acute Hospital Course Date of Admission: Jun 18, 2021 at 15:53 Admission Diagnosis : Family Physician/Provider: [facility] Date of Discharge: 06/21/21 Discharge Diagnosis: [ ] Hospital Course: [ ] Labs and Pending Lab Test: Laboratory Tests 06/21/21 05:40: White Blood Count 14.9H, Red Blood Count 2.67L, Hemoglobin 8.9L, Hematocrit 28L, Mean Corpuscular Volume 103H, Mean Corpuscular Hemoglobin 33, Mean Corpuscular Hemoglobin Concent 32, Red Cell Distribution Width 15.1H, Platelet Count 138, Mean Platelet Volume 11.2, Immature Granulocyte % (Auto) 2, Neutrophils (%) (Auto) 76H, Lymphocytes (%) (Auto) 10L, Monocytes (%) (Auto) 11, Eosinophils (%) (Auto) 1, Basophils (%) (Auto) 0, Neutrophils # (Auto) 11.4H, Lymphocytes # (Auto) 1.4, Monocytes # (Auto) 1.7H, Eosinophils # (Auto) 0.2, Basophils # (Auto) 0.0, Immature Granulocyte # (Auto) 0.2H, Neutrophils % (Manual) 77, Lymphocytes % (Manual) 12, Monocytes % (Manual) 11, Blood Morphology Comment NORMAL, Sodium Level 134L, Potassium Level 3.5L, Chloride Level 110H, Carbon Dioxide Level 15L, Anion Gap 9, Blood Urea Nitrogen 48H, Creatinine 3.61H, Estimat Glomerular Filtration Rate 13, BUN/Creatinine Ratio 13, Glucose Level 89, Calcium Level 7.9L, Corrected Calcium 8.9, Phosphorus Level 3.3, Magnesium Level 1.8, Total Bilirubin 1.0, Aspartate Amino Transf (AST/SGOT) 30, Alanine Aminotransferase (ALT/SGPT) 19, Alkaline Phosphatase 85, Total Protein 5.4L, Albumin 2.8L Home Meds Active Reported Tylenol Extra Strength (Acetaminophen) 500 Mg Tablet 500-1,000 Mg PO Q8H PRN Assessment/Pt Instructions Patient had a lengthy hospital course. Patient was admitted for malignant HTN and NAINA which progressed to more metabolic acidosis and oliguria requiring nephrology management and possible HD. [facility] patient. Discharge Planning: <30 minutes discharge planning Discharge Instructions Discharge Diet: Other Diet (kidney diet) Discharge Physical Examination Vital Signs Vital Signs Date Time Temp Pulse Resp B/P (MAP) Pulse Ox O2 Delivery O2 Flow Rate FiO2 06/21/21 10:36 92 High Flow N/C 8.00 06/21/21 08:58 45 06/21/21 07:23 36.9 90 20 148/95 (112) General Appearance: No Apparent Distress, WD/WN Allergies: Coded Allergies: No Known Drug Allergies (Unverified , 06/17/21) Discharge Summary Date of Admission Jun 18, 2021 at 15:53 Date of Discharge Discharge Date: Jun 21, 2021 DAO OROZCO DO Jun 21, 2021 11:33
[2021-06-21 12:00] VITALS: BP 134/89
[2021-06-21] MEDS ORDERED: ALPRAZolam 0.5 MG (XANAX) TAB PO ONE (13:00)
--- NOTE | 2021-06-21 13:22 | Progress Note - Cardiology ---
Cardiology SOAP Progress Note Subjective: Gen malaise present No cp or palp or syncope or shortness of breath No n/v/d Objective: I&O/Vital Signs 06/21/21 06/21/21 06/21/21 06/21/21 01:58 04:15 07:00 07:01 Temp 36.9 Pulse 78 84 Resp 20 B/P (MAP) 140/87 (104) Pulse Ox 95 91 95 O2 Delivery Vapotherm Vapotherm Vapotherm O2 Flow Rate 25.00 25.00 FiO2 45 45 06/21/21 06/21/21 06/21/21 06/21/21 07:23 08:58 10:36 12:49 Temp 36.9 Pulse 90 81 Resp 20 B/P (MAP) 148/95 (112) Pulse Ox 93 90 92 O2 Delivery Vapotherm Vapotherm High Flow N/C O2 Flow Rate 25.00 8.00 FiO2 45 06/21/21 00:00 Intake Total 1590 ml Output Total 925 ml Balance 665 ml Constitutional: AAO x 3, well-developed, well-nourished Respiratory: No accessory muscle use; other (good, bilateral air enry) Cardiovascular: regular rate-rhythm, S1 and S2, systolic murmur (soft LUIS ALBERTO at card base) Gastrointestional: No tender; soft; No guarding, No rebound; audible bowel sounds Extremities: No clubbing, No cyanosis, No significant edema Neurologic/Psychiatric: oriented x 3, other (moves all limbs equally) Skin: No rash on exposed areas, No ulcerations on exposed areas Results/Procedures: Labs Laboratory Tests 06/21/21 05:40: White Blood Count 14.9H, Red Blood Count 2.67L, Hemoglobin 8.9L, Hematocrit 28L, Mean Corpuscular Volume 103H, Mean Corpuscular Hemoglobin 33, Mean Corpuscular Hemoglobin Concent 32, Red Cell Distribution Width 15.1H, Platelet Count 138, Mean Platelet Volume 11.2, Immature Granulocyte % (Auto) 2, Neutrophils (%) (Auto) 76H, Lymphocytes (%) (Auto) 10L, Monocytes (%) (Auto) 11, Eosinophils (%) (Auto) 1, Basophils (%) (Auto) 0, Neutrophils # (Auto) 11.4H, Lymphocytes # (Auto) 1.4, Monocytes # (Auto) 1.7H, Eosinophils # (Auto) 0.2, Basophils # (Auto) 0.0, Immature Granulocyte # (Auto) 0.2H, Neutrophils % (Manual) 77, Lymphocytes % (Manual) 12, Monocytes % (Manual) 11, Blood Morphology Comment NORMAL, Sodium Level 134L, Potassium Level 3.5L, Chloride Level 110H, Carbon Dioxide Level 15L, Anion Gap 9, Blood Urea Nitrogen 48H, Creatinine 3.61H, Estimat Glomerular Filtration Rate 13, BUN/Creatinine Ratio 13, Glucose Level 89, Calcium Level 7.9L, Corrected Calcium 8.9, Phosphorus Level 3.3, Magnesium Level 1.8, Total Bilirubin 1.0, Aspartate Amino Transf (AST/SGOT) 30, Alanine Aminotransferase (ALT/SGPT) 19, Alkaline Phosphatase 85, Total Protein 5.4L, Albumin 2.8L Laboratory Tests 06/20/21 06:00 06/21/21 05:40 A/P: Assessment: Malignant hypertension - see below for end-organ involvement Acute renal failure: malignant hypertension vs NSAID use - renal failure appears to continue to worsen Acute diastolic CHF, currently clinically compensated - Echo on 06/18/21: Mild to mod conc LVH, LVEF 50-55%, grade 1 diastolic dysfunct ion, hypokinesis of apex, mod TR with PA pressure 60 to 65 mmHg Elevated troponin, likely due to type 2 [place] due uncontrolled hypertension Plan: * Continue current antihypertensive regimen. Not suitable for ARB or KEVIN-inhib (ac renal failure) * Med Svce managing renal failure * Avoid NSAID * Monitor labs MERYL LAGUNAS MD [facility] Jun 21, 2021 13:21
[2021-06-21 15:05] VITALS: BP 134/89
== END 2021-06-21 15:05 | disposition short-term general hospital (02) | DRG 280 ==
LOC: EDUNIT# 16:21 → ER 16:25 → CSD 18:30 → OBSVTOIN 06-18 15:53
PROVIDERS: ADMIT Family Medicine; ATTEND Internal Medicine
DX: I16.0 Hypertensive urgency (principal); J96.01 Acute respiratory failure with hypoxia; I21.A1 Myocardial infarction type 2; I50.31 Acute diastolic (congestive) heart failure; N17.9 Acute kidney failure, unspecified; E87.2 Acidosis; I11.0 Hypertensive heart disease with heart failure; Z87.891 Personal history of nicotine dependence; R10.13 Epigastric pain; E86.0 Dehydration; Z20.822 Contact with and (suspected) exposure to COVID-19; Z72.89 Other problems related to lifestyle; E78.5 Hyperlipidemia, unspecified
CPT/HCPCS: 36415; 71045; 74176; 76770; 76775; 80053; 80061; 80074; 81000; 83735; 84100; 84484; 85007; 85025; 85027; 87636; 93005; 93306; 93975; 94760; 96372; 96374; 96375

== ENCOUNTER 2021-09-15 10:04 | Inpatient (IN) | payer OTHER ==
[~2021-09-15] VITALS: Ht 162 cm; Wt 54.5 kg
[~2021-09-15 10:04] MED LIST: ACET-2267 PO; ACET-93 PO; AMLO-250 PO; ASPI325T32 PO; CLN.1T PO; ENOX60DI7 SC; FOLI1TAB33 PO; IBUP-2473 PO; METO50TA7 PO; PANT40TA52 PO; THIA100T80 PO
[2021-09-15] MEDS ORDERED: ACETAMINOPHEN 500 MG TAB (TYLENOL) ONE (10:12)
[2021-09-15 10:27] LABS: BASOPHILS % (AUTO) 0 % (0-10); EOSINOPHILS # (AUTO) 0.1 10^3/uL (0.0-0.3); EOSINOPHILS % (AUTO) 1 % (0-10); HEMATOCRIT 33 % (35-52); HEMOGLOBIN 11.2 g/dL (11.5-16.0); LYMPHOCYTES # (AUTO) 0.5 10^3/uL (1.0-4.0); LYMPHOCYTES % (AUTO) 4 % (12-44); MEAN CORPUSCULAR HEMOGLOBIN 30 pg (25-34); MEAN CORPUSCULAR HGB CONC 34 g/dL (32-36); MEAN CORPUSCULAR VOLUME 89 fL (80-99); MEAN PLATELET VOLUME 9.9 fL (9.0-12.2); MONOCYTES # (AUTO) 0.2 10^3/uL (0.0-1.0); MONOCYTES % (AUTO) 2 % (0-12); NEUTROPHILS # (AUTO) 11.6 10^3/uL (1.8-7.8); NEUTROPHILS % (AUTO) 94 % (42-75); PLATELET COUNT 185 10^3/uL (130-400); WHITE BLOOD COUNT 12.4 10^3/uL (4.3-11.0)
--- NOTE | 2021-09-15 10:30 | ED General ---
General Stated Complaint: FEVER Source of Information: Patient Exam Limitations: No Limitations History of Present Illness Date Seen by Provider: Sep 15, 2021 Time Seen by Provider: 10:19 Initial Comments Patient is a 66-year-old female with a history of end-stage renal disease on hemodialysis who presents from [facility] dialysis center this morning with a chief complaint of right upper chest discomfort related to her Mahurkar catheter, nauseated, short of breath, feeling generally unwell. She presents with a temperature of 102. Patient recently started dialysis during Covid, was sent to [facility] for onset of dialysis. She is treated by Dr. Aria Galarza out of [facility] in [place]. Patient states about 3 weeks ago she started noticing that the port site was becoming "itchy" it was also becoming red and starting to drain some purulent material. She states since Wednesday she is really been feeling much sicker. She denies any productive cough. She denies sore throat or earache. She denies diarrhea. She does still make scant amounts of urine. She does not have her Covid vaccination. She does not believe she has been around anybody with Covid. Prior to arrival from the dialysis center the patient did receive 800 mg of vancomycin IV. All other review of systems reviewed and negative except as stated. Timing/Duration: 3-4 Days Severity: Severe Associated Systoms: Fever/Chills, Malaise, Nausea/Vomiting, Shortness of Air Allergies and Home Medications Allergies Coded Allergies: No Known Drug Allergies (Unverified , 06/17/21) Patient Home Medication List Home Medication List Reviewed: Yes Acetaminophen (Tylenol Extra Strength) 500 Mg Tablet, 500-1,000 MG PO Q8H PRN for PAIN-MILD (1-4), (Reported) Entered as Reported by: KURT HERNANDEZ on 06/18/21 0907 Acetaminophen (Acetaminophen) 500 Mg Tablet, 1,000 MG PO Q8H PRN for PAIN-MILD (1-4) Prescribed by: DAO OROZCO on 06/21/21 1133 Amlodipine Besylate (Amlodipine Besylate) 5 Mg Tablet, 5 MG PO DAILY Prescribed by: DAO OROZCO on 06/21/21 1133 Aspirin (Aspirin EC) 325 Mg Tablet., 325 MG PO DAILY Prescribed by: DAO OROZCO on 06/21/21 1133 Clonidine HCl (Clonidine HCl) 0.1 Mg Tablet, 0.1 MG PO BID Prescribed by: DAO OROZCO on 06/21/21 113 Enoxaparin Sodium (Enoxaparin Sodium) 60 Mg/0.6 Ml Syringe, 60 MG SC Q24H Prescribed by: DAO OROZCO on 06/21/21 113 Folic Acid (Folic Acid) 1 Mg Tablet, 1 MG PO DAILY Prescribed by: DAO OROZCO on 06/21/21 1133 Metoprolol Succinate (Metoprolol Succinate) 50 Mg Tab.er.24h, 50 MG PO DAILY Prescribed by: DAO OROZCO on 06/21/21 1133 Pantoprazole Sodium (Pantoprazole Sodium) 40 Mg Tablet.dr, 40 MG PO DAILY Prescribed by: DAO OROZCO on 06/21/21 113 Thiamine HCl (Vitamin B-1) 100 Mg Tablet, 100 MG PO DAILY@0700 Prescribed by: DAO OROZCO on 06/21/21 1133 Review of Systems Review of Systems Constitutional: see HPI, chills, fever, malaise, weakness EENTM: no symptoms reported Respiratory: short of breath Cardiovascular: chest pain (in the area of the dialysis catheter) Gastrointestinal: nausea Genitourinary: no symptoms reported Musculoskeletal: no symptoms reported Skin: no symptoms reported Psychiatric/Neurological: No Symptoms Reported All Other Systems Reviewed Negative Unless Noted: Yes Past Lvcewuc-Eqqldb-Xugiob Hx Family Medical History No Pertinent Family Hx Physical Exam Vital Signs Vital Signs - First Documented 09/15/21 10:04 Temp 39.1 Pulse 120 Resp 27 B/P (MAP) 171/105 (127) Pulse Ox 96 O2 Delivery Nasal Cannula O2 Flow Rate 2.00 Capillary Refill : Height, Weight, BMI Height: '" Weight: lbs. oz. kg; 22.72 BMI Method: General Appearance: WD/WN, Anxious Eyes: Bilateral Eye Normal Inspection, Bilateral Eye PERRL, Bilateral Eye EOMI HEENT: PERRL/EOMI Neck: Normal Inspection Respiratory: Lungs Clear, No Accessory Muscle Use, Other (tachypneic; O2 sats 85% RA; 93% on 2L O2; labored breaathing) Cardiovascular: Regular Rate, Rhythm (98bpm) Gastrointestinal: Normal Bowel Sounds, Non Tender, Soft Extremity: Normal Capillary Refill, Normal Inspection, Normal Range of Motion, No Calf Tenderness, No Pedal Edema Neurologic/Psychiatric: Alert, Oriented x3, No Motor/Sensory Deficits, Normal Mood/Affect, auto job estimator II-XII Norm as Tested Skin: Warm/Dry, Other (Area around the Mahurkar catheter in the right upper chest just beneath the clavicle is tender to touch, slightly erythematous, purulent drainage is noted around the suture lines, no subcutaneous emphysema.) Focused Exam Lactate Level 09/15/21 10:09: Lactic Acid Level 1.94 Lactic Acid Level Laboratory Tests Test 09/15/21 10:09 Lactic Acid Level 1.94 MMOL/L (0.50-2.00) Progress/Results/Core Measures Suspected Sepsis Recent Fever Within 48 Hours: Yes Infection Criteria Present: Suspected New Infection New/Unexplained Altered Menta: No Within 3hrs of presentation: Admin fluids, Admin ABX, Blood cultures prior to ABX's, Lactate level SIRS Temperature: Pulse: Respiratory Rate: Laboratory Tests 09/15/21 10:09: White Blood Count 12.4H Blood Pressure / Mean: 09/15/21 10:09: Lactic Acid Level 1.94 Laboratory Tests 09/15/21 10:09: Creatinine 1.21, INR Comment 0.9, Platelet Count 185, Total Bilirubin 0.8 Results/Orders Lab Results Laboratory Tests Test 09/15/21 10:09 09/15/21 10:19 09/15/21 12:35 Range/Units White Blood Count 12.4 H 4.3-11.0 10^3/uL Red Blood Count 3.73 L 3.80-5.11 10^6/uL Hemoglobin 11.2 L 11.5-16.0 g/dL Hematocrit 33 L 35-52 % Mean Corpuscular Volume 89 80-99 fL Mean Corpuscular Hemoglobin 30 25-34 pg Mean Corpuscular Hemoglobin Concent 34 32-36 g/dL Red Cell Distribution Width 14.0 10.0-14.5 % Platelet Count 185 130-400 10^3/uL Mean Platelet Volume 9.9 9.0-12.2 fL Immature Granulocyte % (Auto) 1 % Neutrophils (%) (Auto) 94 H 42-75 % Lymphocytes (%) (Auto) 4 L 12-44 % Monocytes (%) (Auto) 2 0-12 % Eosinophils (%) (Auto) 1 0-10 % Basophils (%) (Auto) 0 0-10 % Neutrophils # (Auto) 11.6 H 1.8-7.8 10^3/uL Lymphocytes # (Auto) 0.5 L 1.0-4.0 10^3/uL Monocytes # (Auto) 0.2 0.0-1.0 10^3/uL Eosinophils # (Auto) 0.1 0.0-0.3 10^3/uL Basophils # (Auto) 0.0 0.0-0.1 10^3/uL Immature Granulocyte # (Auto) 0.1 0.0-0.1 10^3/uL Neutrophils % (Manual) 83 % Lymphocytes % (Manual) 4 % Monocytes % (Manual) 1 % Eosinophils % (Manual) 0 % Basophils % (Manual) 0 % Band Neutrophils 12 % Blood Morphology Comment NORMAL Prothrombin Time 12.6 12.2-14.7 SEC INR Comment 0.9 0.8-1.4 Activated Partial Thromboplast Time 42 H 24-35 SEC Sodium Level 132 L 135-145 MMOL/L Potassium Level 3.3 L 3.6-5.0 MMOL/L Chloride Level 99 98-107 MMOL/L Carbon Dioxide Level 22 21-32 MMOL/L Anion Gap 11 5-14 MMOL/L Blood Urea Nitrogen 9 7-18 MG/DL Creatinine 1.21 0.60-1.30 MG/DL Estimat Glomerular Filtration Rate 45 BUN/Creatinine Ratio 7 Glucose Level 91 70-105 MG/DL Lactic Acid Level 1.94 0.50-2.00 MMOL/L Calcium Level 8.3 L 8.5-10.1 MG/DL Corrected Calcium 8.8 8.5-10.1 MG/DL Total Bilirubin 0.8 0.1-1.0 MG/DL Aspartate Amino Transf (AST/SGOT) 37 H 5-34 U/L Alanine Aminotransferase (ALT/SGPT) 25 0-55 U/L Alkaline Phosphatase 116 40-136 U/L Total Protein 6.6 6.4-8.2 GM/DL Albumin 3.4 3.2-4.5 GM/DL Influenza Type A (RT-PCR) Not Detected Not Detecte Influenza Type B (RT-PCR) Not Detected Not Detecte SARS-CoV-2 RNA (RT-PCR) Not Detected Not Detecte Urine Color YELLOW Urine Clarity CLEAR Urine pH 7.0 5-9 Urine Specific Lenore 1.010 L 1.016-1.022 Urine Protein 2+ H NEGATIVE Urine Glucose (UA) NEGATIVE NEGATIVE Urine Ketones NEGATIVE NEGATIVE Urine Nitrite NEGATIVE NEGATIVE Urine Bilirubin NEGATIVE NEGATIVE Urine Urobilinogen 0.2 < = 1.0 MG/DL Urine Leukocyte Esterase TRACE H NEGATIVE Urine RBC (Auto) 1+ H NEGATIVE Urine RBC RARE /HPF Urine WBC 0-2 /HPF Urine Squamous Epithelial Cells RARE /HPF Urine Crystals NONE /LPF Urine Bacteria TRACE /HPF Urine Casts PRESENT /LPF Urine Granular Casts RARE /LPF Urine Mucus NEGATIVE /LPF Urine Culture Indicated NO Micro Results Microbiology 09/15/21 Gram Stain, Resulted Pending 09/15/21 Wound Culture - Preliminary, Resulted My Orders Orders - JULIÁN FITZPATRICK MD Acetaminophen Tablet (Tylenol Tablet) (09/15/21 10:12) Cbc With Automated Diff (09/15/21 10:19) Comprehensive Metabolic Panel (09/15/21 10:19) Blood Culture (09/15/21 10:19) Sputum Culture (09/15/21 10:19) Urinalysis (09/15/21 10:19) Urine Culture (09/15/21 10:19) Protime With Inr (09/15/21 10:19) Partial Thromboplastin Time (09/15/21 10:19) Chest 1 View, Ap/Pa Only (09/15/21 10:19) Ed Iv/Invasive Line Start (09/15/21 10:19) Ed Iv/Invasive Line Start (09/15/21 10:19) Vital Signs Adult Sepsis Patie Q15M (09/15/21 10:19) O2 (09/15/21 10:19) Remove Rings In Anticipation O (09/15/21 10:19) Lactic Acid Analyzer (09/15/21 10:19) Manual Differential (09/15/21 10:09) Covid 19 Inhouse Test (09/15/21 10:33) Influenza A And B By Pcr (09/15/21 10:33) Acetaminophen Tablet (Tylenol Tablet) (09/15/21 10:45) Ns (Ivpb) (Sodium Chloride 0.9%) (09/15/21 10:45) General/Regular (11/29/21 Lunch) Piperacillin Sodium/Tazobactam (Zosyn Vi (09/15/21 14:15) Wound Culture (09/15/21 14:43) Medications Given in ED Vital Signs/I&O 09/15/21 09/15/21 10:04 10:05 Temp 39.1 Pulse 120 Resp 27 B/P (MAP) 171/105 (127) Pulse Ox 96 97 O2 Delivery Nasal Cannula Nasal Cannula O2 Flow Rate 2.00 2.00 Capillary Refill : Progress Note #1: Time: 13:13 Progress Note Discussed the case with the patient's central stores attendant, Dr. Aria Galarza. She recommends additional antibiotics for gram-negative coverage. She recommends the patient be admitted for IV antibiotics for line sepsis. I have called [place] and [facility] in [place] as well as [facility] in [place] at noon today. They are all 3 at capacity or on divert. We will attempt to find other placement that has dialysis capabilities. Patient's vital signs continue to be stable. Her heart rate is 100. She is 98% on 2 L. Progress Note #2: Time: 14:27 Progress Note @1157 [facility] declined due to capacity, as well as [facility] and [place] @1356 [place] and [facility] declined due to capacity @[address] [facility] [address] [facility] declined due to capacity patient's VS remain stable with BP 106/69 HR 86 and O2 96% on 2L; Temp 100.1 [place] [facility] helping us to find bed placement Progress Note #3: Time: 16:24 Progress Note @ 1606 [facility] in declined Call made to Dr Montoya re: pulling mahurker catheter so we can culture it; he will be down to see in a few minutes. Progress Note #4: Time: 16:58 Progress Note Discussed with Dr Montoya, he is willing to be available to take out the catheter. SPoke again with Dr Aria Galarza, she stated that the patient has enough renal function she can have a dialysis "holiday"; recommends an TTE to rule out vegetations and removal of the port. Follow labs. If cultures come back ok, port can be replaced and she would be happy to be available for consultations. Potential dialysis on Wednesday if cultures are negative by wednesday or . [phone]. Spoke with Dr Orozco who stated she will call me back about admission Progress Note #5: Time: 18:26 Progress Note Discussed with Dr Yin; he will do a TTE tomorrow. But he states cannot rule out 100% vegetations unless we do a DAWOOD. states that he may be able to do a DAWOOD on wednesday oif necessary. Diagnostic Imaging Diagonstic Imaging: Xray Plain Films/CT/US/NM/MRI: chest Comments [facility] [place] NAME: LAUREN CORDERO [facility] REC#: [id number] PT STATUS: REG ER : 1955 PHYSICIAN: JULIÁN FITZPATRICK MD ADMIT DATE: 09/15/21/ER Draft Date of Exam:09/15/21 CHEST 1 VIEW, AP/PA ONLY HISTORY: Sepsis COMPARISON: 06/17/2021 TECHNIQUE: Frontal view of the chest FINDINGS: The right dual-lumen catheter tip projects over the low SVC. There are mildly increased interstitial opacities in the right lung base. There is no pleural effusion or pneumothorax. The cardiac silhouette is stable in size. IMPRESSION: 1. Mildly increased interstitial opacities at the right lung base, may represent edema or infection. 2. The right dual-lumen catheter tip projects over the low SVC. Dictated on workstation # [id number] Dict: 09/15/21 1124 Trans: 09/15/21 1126 CVB [id number] Interpreted by: CANDELARIO BRAVO MD Electronically signed by: Departure Impression Primary Impression: Sepsis Qualified Codes: A41.9 - Sepsis, unspecified organism Disposition: XFER SHT-TRM HOSP Condition: Stable Departure-Patient Inst. Referrals: [facility] (PCP/Family) Primary Care Physician JULIÁN FITZPATRICK MD Sep 15, 2021 10:30
[2021-09-15 10:37] LABS: ALBUMIN 3.4 GM/DL (3.2-4.5); POTASSIUM 3.3 MMOL/L (3.6-5.0)
[2021-09-15 10:38] LABS: CALCIUM 8.3 MG/DL (8.5-10.1)
[2021-09-15 10:39] LABS: INR 0.9 (0.8-1.4); PROTHROMBIN TIME PATIENT 12.6 SEC (12.2-14.7); TOTAL PROTEIN 6.6 GM/DL (6.4-8.2)
[2021-09-15 10:41] LABS: BILIRUBIN,TOTAL 0.8 MG/DL (0.1-1.0)
[2021-09-15 10:43] LABS: CREATININE SERUM 1.21 MG/DL (0.60-1.30)
[2021-09-15] MEDS ORDERED: NS (IVPB) 250 ML IV ONE (10:45)
[2021-09-15] MEDS ORDERED: ACETAMINOPHEN 500 MG TAB (TYLENOL) PO ONE (10:45)
[2021-09-15 10:58] LABS: BAND NEUTROPHILS 12 %; BASOPHILS % (MANUAL) 0 %; EOSINOPHILS % (MANUAL) 0 %; LYMPHOCYTES % (MANUAL) 4 %; MONOCYTES % (MANUAL) 1 %; NEUTROPHILS % (MANUAL) 83 %; RBC MORPH NORMAL
--- NOTE | 2021-09-15 11:26 | Diagnostic Imaging Report ---
HISTORY: Sepsis COMPARISON: 06/17/2021 TECHNIQUE: Frontal view of the chest FINDINGS: The right dual-lumen catheter tip projects over the low SVC. There are mildly increased interstitial opacities in the right lung base. There is no pleural effusion or pneumothorax. The cardiac silhouette is stable in size. IMPRESSION: 1. Mildly increased interstitial opacities at the right lung base, may represent edema or infection. 2. The right dual-lumen catheter tip projects over the low SVC. Dictated by: Dictated on workstation # [id number]
[2021-09-15 12:53] LABS: BILIRUBIN,URINE NEGATIVE (NEGATIVE); CLARITY,URINE CLEAR; COLOR,URINE YELLOW; GLUCOSE, URINE (UA) NEGATIVE (NEGATIVE); KETONES,URINE NEGATIVE (NEGATIVE); LEUKOCYTE ESTERASE ,URINE TRACE (NEGATIVE); NITRITE,URINE NEGATIVE (NEGATIVE); PROTEIN,URINE 2+ (NEGATIVE)
[2021-09-15 13:03] LABS: BACTERIA,URINE TRACE /HPF; GRANULAR CASTS,URINE RARE /LPF; RBC,URINE RARE /HPF; SQUAMOUS EPITHELIAL CELL,UR RARE /HPF; WBC,URINE 0-2 /HPF
[2021-09-15] MEDS ORDERED: PIPERACILLIN SODIUM/TAZOBACTAM 4.5 GM in NS (IVPB) 100 ML IV ONE (14:15)
[2021-09-15] MEDS ORDERED: ACETAMINOPHEN 500 MG TAB (TYLENOL) PO PRN (19:30)
[2021-09-15] MEDS ORDERED: CALCIUM CARBONATE 500 MG (TUMS) TAB.CHEW PO PRN (19:30)
[2021-09-15] MEDS ORDERED: VANCOMYCIN INJECTION 0.1 MG in NS (IVPB) 250 ML IV SCH (19:30)
[2021-09-15] MEDS ORDERED: DOCUSATE SODIUM 100 MG (COLACE) CAP PO PRN (19:30)
[2021-09-15 19:48] VITALS: BP 171/105
[2021-09-15 20:00] VITALS: BP 121/73
[2021-09-15] MEDS ORDERED: RT-ALBUTEROL/IPRATROPIUM 3 ML (DUONEB) VIAL INH PRN (20:00)
[2021-09-15] MEDS ORDERED: ACETAMINOPHEN 325 MG TABLET ONE (20:42)
[2021-09-15] MEDS: PIPERACILLIN/TAZOBACTAM (BULK) 4.5 GM in NS (IVPB) 100 ML IV SCH (20:59)
[2021-09-15] MEDS: ACETAMINOPHEN 325 MG TABLET PO PRN (20:59)
[2021-09-15] MEDS: RT-ALBUTEROL/IPRATROPIUM 3 ML (DUONEB) VIAL INH SCH (21:38)
[2021-09-15] MEDS: SENNA W/DOCUSATE (SENOKOT S) TABLET PO SCH (22:34)
[2021-09-16] VITALS (11 sets, daily range): BP systolic 106–141; BP diastolic 48–92
[2021-09-16] MEDS: RT-ALBUTEROL/IPRATROPIUM 3 ML (DUONEB) VIAL INH SCH ×4 (02:24→21:14)
[2021-09-16] MEDS: PIPERACILLIN/TAZOBACTAM (BULK) 4.5 GM in NS (IVPB) 100 ML IV SCH (04:13)
[2021-09-16 05:50] LABS: BASOPHILS # (AUTO) 0.1 10^3/uL (0.0-0.1); BASOPHILS % (AUTO) 0 % (0-10); EOSINOPHILS # (AUTO) 0.3 10^3/uL (0.0-0.3); EOSINOPHILS % (AUTO) 2 % (0-10); HEMATOCRIT 29 % (35-52); HEMOGLOBIN 9.7 g/dL (11.5-16.0); LYMPHOCYTES # (AUTO) 1.2 10^3/uL (1.0-4.0); LYMPHOCYTES % (AUTO) 8 % (12-44); MEAN CORPUSCULAR HEMOGLOBIN 30 pg (25-34); MEAN CORPUSCULAR HGB CONC 33 g/dL (32-36); MEAN CORPUSCULAR VOLUME 89 fL (80-99); MEAN PLATELET VOLUME 10.3 fL (9.0-12.2); MONOCYTES # (AUTO) 1.6 10^3/uL (0.0-1.0); MONOCYTES % (AUTO) 11 % (0-12); NEUTROPHILS # (AUTO) 11.8 10^3/uL (1.8-7.8); NEUTROPHILS % (AUTO) 79 % (42-75); PLATELET COUNT 210 10^3/uL (130-400)
[2021-09-16 06:11] LABS: ALBUMIN 2.7 GM/DL (3.2-4.5); POTASSIUM 2.8 MMOL/L (3.6-5.0)
[2021-09-16 06:12] LABS: CALCIUM 7.8 MG/DL (8.5-10.1)
[2021-09-16 06:13] LABS: TOTAL PROTEIN 5.3 GM/DL (6.4-8.2)
[2021-09-16 06:15] LABS: BILIRUBIN,TOTAL 0.5 MG/DL (0.1-1.0)
[2021-09-16 06:17] LABS: CREATININE SERUM 2.24 MG/DL (0.60-1.30)
--- NOTE | 2021-09-16 09:03 | Consultation - Surgery ---
TRACE CHRISTY MED STUDENT 09/16/21 0902: History of Present Illness History of Present Illness Patient Consulted On(ricardo/time) 09/16/21 08:52 Date Seen by Provider: Sep 16, 2021 Time Seen by Provider: 07:45 Reason for Visit: infected dialysis catheter History of Present Illness This is Suly a 66 yo female on day 2 of her hospital stay with the chief complaint of an infected dialysis catheter. Pt was laying in bed upon entering the room. She was calm, cooperative, and engaged during questioning. Pt presented to the ED on 09/15 with complaints of nausea, SOB, and a fever of 102F. Pt was at [facility] getting a dialysis treatment when they advised her to go to the ED. Dialysis was started on May 21 during a hospital stay in [place]. For the last couple of weeks she complains of itching, purulent draining, redness, and right sided neck pain surrounding the catheter. Pt has a medical history significant for CKD. Surgeries include a left hip replacement in 2015 and an appendectomy as a child. Family history consists of a father with diabetes, grandmother with multiple myeloma, and a mother with Lupus. Pt is scheduled for catheter removal by Dr. Mao later today. Allergies and Home Medications Allergies Coded Allergies: No Known Drug Allergies (Unverified , 06/17/21) Patient Home Medication List Acetaminophen (Tylenol Extra Strength) 500 Mg Tablet, 500-1,000 MG PO Q8H PRN for PAIN-MILD (1-4), (Reported) Entered as Reported by: KURT HERNANDEZ on 06/18/21 0907 Acetaminophen (Acetaminophen) 500 Mg Tablet, 1,000 MG PO Q8H PRN for PAIN-MILD (1-4) Prescribed by: DAO OROZCO on 06/21/21 1133 Amlodipine Besylate (Amlodipine Besylate) 5 Mg Tablet, 5 MG PO DAILY Prescribed by: DAO OROZCO on 06/21/21 1133 Aspirin (Aspirin EC) 325 Mg Tablet.dr 325 MG PO DAILY Prescribed by: DAO OROZCO on 06/21/21 1133 Clonidine HCl (Clonidine HCl) 0.1 Mg Tablet, 0.1 MG PO BID Prescribed by: DAO OROZCO on 06/21/21 1133 Enoxaparin Sodium (Enoxaparin Sodium) 60 Mg/0.6 Ml Syringe, 60 MG SC Q24H Prescribed by: DAO OROZCO on 06/21/21 113 Folic Acid (Folic Acid) 1 Mg Tablet, 1 MG PO DAILY Prescribed by: DAO OROZCO on 06/21/21 113 Metoprolol Succinate (Metoprolol Succinate) 50 Mg Tab.er.24h, 50 MG PO DAILY Prescribed by: DAO OROZCO on 06/21/21 113 Pantoprazole Sodium (Pantoprazole Sodium) 40 Mg Tablet.dr, 40 MG PO DAILY Prescribed by: DAO OROZCO on 06/21/21 113 Thiamine HCl (Vitamin B-1) 100 Mg Tablet, 100 MG PO DAILY@0700 Prescribed by: DAO OROZCO on 06/21/21 113 Past Fyqrwla-Tfbkok-Edqbxo Hx Patient Social History Smoking Status: Former Smoker Alcohol Use?: No (quit drinking beer after starting dialysis) Have you traveled recently?: Yes Surgeries History of Surgeries: Yes Surgeries: Appendectomy (left hip replacement), Orthopedic Respiratory History of Respiratory Disorde: No Cardiovascular History of Cardiac Disorders: No Neurological History of Neurological Disord: No Genitourinary History of Genitourinary Disor: Yes Genitourinary Disorders: Dialysis Gastrointestinal History of Gastrointestinal Di: No Endocrine History of Endocrine Disorders: No HEENT History of HEENT Disorders: No Cancer History of Cancer: No Psychosocial History of Psychiatric Problem: No Integumentary History of Skin or Integumenta: No Family Medical History Significant Family History: Diabetes, Other Conditions/Hx (multiple myeloma, lupus) Review of Systems-General Constitutional: chills; No diaphoresis; fever; No weakness, No weight gain; weight loss (since beginning dialysis) EENTM: eye pain; No ear discharge, No hearing loss, No ear pain, No blurred vision, No double vision (states that she needs new glasses), No hoarseness, No mouth pain, No nose pain, No throat pain Respiratory: cough; No dyspnea on exertion, No hemoptysis; short of breath Cardiovascular: No chest pain, No edema, No Hx of Intervention, No palpitations Gastrointestinal: No abdominal pain, No constipation, No diarrhea, No hematemesis, No melena; nausea; No vomiting Genitourinary: decreased output; No dysuria, No frequency, No hematuria, No pain Musculoskeletal: back pain (from laying on hospital bed), joint pain (left hip- chronic); No muscle pain, No muscle twitching, No muscle weakness; neck pain (right sided, near catheter) Skin: change in color (redness around catheter); No dryness, No lesions Psychiatric/Neurological: Denies Anxiety, Denies Depressed, Denies Emotional Problems; Headache; Denies Numbness, Denies Pre-Existing Deficit, Denies Weaknes s Physical Exam-General Problems Physical Exam Vital Signs Vital Signs - First Documented 09/15/21 09/15/21 10:04 19:48 Temp 39.1 Pulse 120 Resp 27 B/P (MAP) 171/105 (127) Pulse Ox 96 O2 Delivery Nasal Cannula O2 Flow Rate 2.00 FiO2 21 Capillary Refill : Less Than 3 Seconds General Appearance: WD/WN, no apparent distress Eyes: Bilateral Eye Normal Inspection, Bilateral Eye PERRL HEENT: PERRL/EOMI, pharynx normal Neck: supple, normal inspection, tender lateral (mild right sided neck pain to palpation) Respiratory: chest non-tender, lungs clear, normal breath sounds, no respiratory distress, no accessory muscle use Cardiovascular: normal peripheral pulses, regular rate, rhythm, no edema, no gallop, no murmur Gastrointestinal: non tender, soft Rectal: deferred Back: normal inspection, vertebral tenderness (lumbar ) Extremities: non-tender, normal inspection, no pedal edema, no calf tenderness, normal capillary refill Neurologic/Psychiatric: no motor/sensory deficits, alert, normal mood/affect, oriented x 3 Skin: normal color, warm/dry, other (mild erthema around catheter, no pus or drainage present on exam, catheter in right upper chest) Lymphatic: no adenopathy (cervical and supraclavicular) Data Review Labs Laboratory Tests 09/15/21 10:09: White Blood Count 12.4H, Red Blood Count 3.73L, Hemoglobin 11.2L, Hematocrit 33L , Mean Corpuscular Volume 89, Mean Corpuscular Hemoglobin 30, Mean Corpuscular Hemoglobin Concent 34, Red Cell Distribution Width 14.0, Platelet Count 185, Mean Platelet Volume 9.9, Immature Granulocyte % (Auto) 1, Neutrophils (%) (Auto) 94H, Lymphocytes (%) (Auto) 4L, Monocytes (%) (Auto) 2, Eosinophils (%) (Auto) 1, Basophils (%) (Auto) 0, Neutrophils # (Auto) 11.6H, Lymphocytes # ( Auto) 0.5L, Monocytes # (Auto) 0.2, Eosinophils # (Auto) 0.1, Basophils # (Auto) 0.0, Immature Granulocyte # (Auto) 0.1, Neutrophils % (Manual) 83, Lymphocytes % (Manual) 4, Monocytes % (Manual) 1, Eosinophils % (Manual) 0, Basophils % (Manual) 0, Band Neutrophils 12, Blood Morphology Comment NORMAL, Prothrombin Time 12.6, INR Comment 0.9, Activated Partial Thromboplast Time 42H, Sodium Level 132L, Potassium Level 3.3L, Chloride Level 99, Carbon Dioxide Level 22, Anion Gap 11, Blood Urea Nitrogen 9, Creatinine 1.21, Estimat Glomerular Filtration Rate 45, BUN/Creatinine Ratio 7, Glucose Level 91, Lactic Acid Level 1.94, Calcium Level 8.3L, Corrected Calcium 8.8, Total Bilirubin 0.8, Aspartate Amino Transf (AST/SGOT) 37H, Alanine Aminotransferase (ALT/SGPT) 25, Alkaline Ph osphatase 116, Total Protein 6.6, Albumin 3.4 09/15/21 10:19: Influenza Type A (RT-PCR) Not Detected, Influenza Type B (RT-PCR) Not Detected, SARS-CoV-2 RNA (RT-PCR) Not Detected 09/15/21 12:35: Urine Color YELLOW, Urine Clarity CLEAR, Urine pH 7.0, Urine Specific [place] 1.010L, Urine Protein 2+H, Urine Glucose (UA) NEGATIVE, Urine Ketones NEGATIVE, Urine Nitrite NEGATIVE, Urine Bilirubin NEGATIVE, Urine Urobilinogen 0.2, Urine Leukocyte Esterase TRACEH, Urine RBC (Auto) 1+H, Urine RBC RARE, Urine WBC 0-2, Urine Squamous Epithelial Cells RARE, Urine Crystals NONE, Urine Bacteria TRACE, Urine Casts PRESENT, Urine Granular Casts RARE, Urine Mucus NEGATIVE, Urine Culture Indicated NO 09/16/21 05:40: White Blood Count 15.0H, Red Blood Count 3.26L, Hemoglobin 9.7L, Hematocrit 29L, Mean Corpuscular Volume 89, Mean Corpuscular Hemoglobin 30, Mean Corpuscular Hemoglobin Concent 33, Red Cell Distribution Width 13.9, Platelet Count 210, Mean Platelet Volume 10.3, Immature Granulocyte % (Auto) 1, Neutrophils (%) (Auto) 79H, Lymphocytes (%) (Auto) 8L, Monocytes (%) (Auto) 11, Eosinophils (%) (Auto) 2, Basophils (%) (Auto) 0, Neutrophils # (Auto) 11.8H, Lymphocytes # (Auto) 1.2, Monocytes # (Auto) 1.6H, Eosinophils # (Auto) 0.3, Basophils # (Auto) 0.1, Immature Granulocyte # (Auto) 0.1, Sodium Level 134L, Potassium Level 2.8L, Chloride Level 103, Carbon Dioxide Level 19L, Anion Gap 12, Blood Urea Nitrogen 16, Creatinine 2.24H, Estimat Glomerular Filtration Rate 22, BUN/Creatinine Ratio 7, Glucose Level 85, Calcium Level 7.8L, Corrected Calcium 8.8, Total Bilirubin 0.5, Aspartate Amino Transf (AST/SGOT) 29, Alanine Aminotransferase (ALT/SGPT) 22, Alkaline Phosphatase 83, Total Protein 5.3L, Albumin 2.7L, Vancomycin Level Trough 9.7L Microbiology 09/15/21 Gram Stain, Resulted Pending 09/15/21 Wound Culture - Preliminary, Resulted Assessment/Plan Assessment/Plan Assessment/Plan infected dialysis catheter Final Diagnosis Assessment: infected dialysis catheter CXR shows increase interstitial opacities in right lung base Plan: surgical removal later today continue IV antibiotics SALVATORE MAO DO 09/16/21 1153: History of Present Illness History of Present Illness Time Seen by Provider: 11:44 History of Present Illness Surgery consulted regarding infected dialysis catheter, probable bacteremia and sepsis. I actually saw pt yesterday in the ER and talked to her, waiting to see if they could get her transferred or if Hospitalist would accept her here. ED physician talked with her Sales Market Leader who said she could go on a "Dialysis Holiday". Pt states the catheter has been itchy and draining for weeks, they actually gave her Vancomycin before her dialysis yesterday and then sent her to ER. + Fever, pain was mild Allergies and Home Medications Allergies Coded Allergies: No Known Drug Allergies (Unverified , 06/17/21) Patient Home Medication List Home Medication List Reviewed: Yes Acetaminophen (Tylenol Extra Strength) 500 Mg Tablet, 500-1,000 MG PO Q8H PRN for PAIN-MILD (1-4), (Reported) Entered as Reported by: KURT HERNANDEZ on 06/18/21 0907 Acetaminophen (Acetaminophen) 500 Mg Tablet, 1,000 MG PO Q8H PRN for PAIN-MILD (1-4) Prescribed by: DAO OROZCO on 06/21/21 1133 Amlodipine Besylate (Amlodipine Besylate) 5 Mg Tablet, 5 MG PO DAILY Prescribed by: DAO OORZCO on 06/21/21 1133 Aspirin (Aspirin EC) 325 Mg Tablet.dr, 325 MG PO DAILY Prescribed by: DAO OROZCO on 06/21/21 1133 Clonidine HCl (Clonidine HCl) 0.1 Mg Tablet, 0.1 MG PO BID Prescribed by: DAO OROZCO on 06/21/21 1133 Enoxaparin Sodium (Enoxaparin Sodium) 60 Mg/0.6 Ml Syringe, 60 MG SC Q24H Prescribed by: DAO OROZCO on 06/21/21 1133 Folic Acid (Folic Acid) 1 Mg Tablet, 1 MG PO DAILY Prescribed by: DOA OROZCO on 06/21/21 1133 Metoprolol Succinate (Metoprolol Succinate) 50 Mg Tab.er.24h, 50 MG PO DAILY Prescribed by: DAO OROZCO on 06/21/21 1133 Pantoprazole Sodium (Pantoprazole Sodium) 40 Mg Tablet.dr, 40 MG PO DAILY Prescribed by: DAO OROZCO on 06/21/21 1133 Thiamine HCl (Vitamin B-1) 100 Mg Tablet, 100 MG PO DAILY@0700 Prescribed by: DAO OROZCO on 06/21/21 1133 Past Zvzozry-Kvvdrv-Ilsuso Hx Patient Social History Smoking Status: Former Smoker (quit 40yrs ago) Alcohol Use?: No (quit drinking beer after starting dialysis) Surgeries History of Surgeries: Yes Surgeries: Appendectomy (left hip replacement), Orthopedic Respiratory History of Respiratory Disorde: No Cardiovascular History of Cardiac Disorders: Yes Cardiac Disorders: Hypertension Neurological History of Neurological Disord: No Genitourinary History of Genitourinary Disor: Yes Genitourinary Disorders: Renal Failure, Dialysis Gastrointestinal History of Gastrointestinal Di: No Musculoskeletal History of Musculoskeletal Dis: Yes Musculoskeletal Disorders: Arthritis Endocrine History of Endocrine Disorders: No HEENT History of HEENT Disorders: No Cancer History of Cancer: No Psychosocial History of Psychiatric Problem: No Integumentary History of Skin or Integumenta: No Family Medical History Significant Family History: Diabetes (Father), Other Conditions/Hx (multiple myeloma, lupus) Review of Systems-General Constitutional: chills; No diaphoresis; fever; No weakness, No weight gain; weight loss (since beginning dialysis) EENTM: eye pain; No ear discharge, No hoarseness, No mouth pain, No nose pain, No throat pain Respiratory: cough; No dyspnea on exertion, No hemoptysis; short of breath Cardiovascular: No chest pain, No edema, No Hx of Intervention, No palpitations Gastrointestinal: No abdominal pain, No constipation, No hematemesis, No melena; nausea; No vomiting Genitourinary: decreased output; No dysuria, No frequency, No hematuria Musculoskeletal: back pain (from laying on hospital bed), joint pain (left hip- chronic); No muscle pain Skin: change in color (redness around catheter); No dryness, No lesions Psychiatric/Neurological: Denies Anxiety, Denies Depressed, Denies Emotional Problems; Headache; Denies Numbness, Denies Pre-Existing Deficit Physical Exam-General Problems Physical Exam General Appearance: no apparent distress, other (chronically ill) Eyes: Bilateral Eye PERRL, Bilateral Eye EOMI HEENT: pharynx normal; No scleral icterus (R), No scleral icterus (L) Neck: supple, normal inspection, tender lateral (mild right sided neck pain to palpation) Respiratory: lungs clear, normal breath sounds, no respiratory distress, no accessory muscle use Cardiovascular: regular rate, rhythm, no murmur Gastrointestinal: non tender, soft Rectal: deferred Back: vertebral tenderness (lumbar ) Extremities: non-tender, normal inspection, no pedal edema, no calf tenderness Neurologic/Psychiatric: no motor/sensory deficits, alert, normal mood/affect, oriented x 3 Skin: normal color, warm/dry, other (mild erthema around catheter, no pus or drainage present on exam, catheter in right upper chest) Lymphatic: no adenopathy (cervical and supraclavicular) Assessment/Plan Assessment/Plan Assessment/Plan Infected Dialysis Catheter Renal Failure Coagulopathy Pt needs catheter removed because of probable bacteremia; approved by her nephrologis, because she probably won't be able to get another one put in until bacteria is clear. She was apparently waiting to get fistula. We discussed the catheter; in fact, I found a picture and showed her the cuff around that needs to be dissected out. We talked about bleeding because of meds and because of tract created by catheter. She has increased risk of complications because of her renal failure. All questions answered to her satisfaction. Supervisory-Addendum Brief Verification & Attestation Participated in pt care: history, MDM, physical Personally performed: exam, history, MDM, supervision of care Care discussed with: Medical Student Procedures: n/a Verification and Attestation of Medical Student E/M Service A medical student performed and documented this service. I then reviewed and verified all information documented by the medical student and made modifications to such information, when appropriate. I personally performed a physical exam, medical decision making and then discussed any differences between the notes and made revisions as necessary to create one note. Salvatore Mao , 09/16/21 , 11:58 TRACE CHRISTY MED STUDENT Sep 16, 2021 09:02 SALVATORE MAO DO Sep 16, 2021 11:53
[2021-09-16] MEDS: SENNA W/DOCUSATE (SENOKOT S) TABLET PO SCH ×2 (09:08→20:16)
[2021-09-16] MEDS ORDERED: VANCOMYCIN 1 GM/NS 250 ML IVPB IV NR ×2 (10:00)
[2021-09-16] MEDS ORDERED: MIDAZOLAM 2 MG/2 ML (VERSED) VIAL ONE (11:12)
[2021-09-16] MEDS ORDERED: PROPOFOL INJECTION 50 ML IV ONE (11:12)
[2021-09-16] MEDS ORDERED: LIDOCAINE/EPI 1%-1:100,000 (XYLOCAINE) 20ML ONE (11:13)
[2021-09-16] MEDS ORDERED: LACTATED RINGERS 1,000 ML IV PRN ×2 (11:30→11:45)
[2021-09-16] MEDS ORDERED: NS IV 500 ML 500 ML IV PRN (11:45)
--- NOTE | 2021-09-16 12:01 | History & Physical-Hospitalist ---
ADA MEJIA 09/16/21 1201: History of Present Illness HPI/Chief Complaint CC: Infected dialysis catheter HPI: Ms. Saleh is a 66 year old female with a PMHx of HTN and CKD who presented to [facility] yesterday morning from [facility] with a chief complaint of right upper chest discomfort and pain d/t her dialysis catheter. She reported that it has been red and itchy for the last month but it became purulent on Wednesday. She said it got even worse Wednesday with increasing green purulence. She endorsed associated itchiness, a fever of 102, chills, aches, headache, malaise, and nausea upon arrival yesterday. She said that her symptoms have been constant since their onset about a month ago but it has progressively gotten worse. She said nothing makes her symptoms any better or any worse. She denies any radiation of the pain or itchiness from her catheter. She does report that sometimes her whole body becomes itchy after dialysis. She reports her discomfort as a 9/10. She is being followed by Dr. Aria Galarza in [facility] for her CKD. Today Dr. Montoya plans to remove her infected catheter. Patient reports she was newly diagnosed with CKD on 17 June 2021. Source: patient Date Seen 09/16/21 Time Seen by a Provider: 08:02 Attending Physician Anay Orozco DO [facility] Referring Physician Date of Admission Sep 15, 2021 at 18:20 Home Medications & Allergies Home Medications Reviewed patient Home Medication Reconciliation performed by pharmacy medication reconciliations network control technician and/or nursing. Patients Allergies have been reviewed. Allergies Allergies Coded Allergies No Known Drug Allergies (Unverified06/17/21) Past Fpeclfj-Yzwmcq-Dtifxv Hx Patient Social History Marrital Status: Tobacco Use?: Yes Tobacco type used: Cigarettes Smoking Status: Former Smoker (Smoked for 9 years, quit 40 years ago. Smoked 1 PPD.) Smokeless type used: Sticks Smokeless Tobacco Frequency: Former User Use of E-Cig and/or Vaping dev: No Substance use?: No Alcohol Use?: No (quit drinking beer after starting dialysis) Alcohol type: Beer Additional Alcohol Comments: QUIT WITH DIAGNOSIS OF RENAL DISEASE Pt feels they are or have been: No Immunizations Up To Date Tetanus Booster (TDap): Unknown Hepatitis A: No Hepatitis B: No Current Status Advance Directives: No Communicates: Verbally Primary Language: Sinhala Preferred Spoken Language: Sinhala Is interpretation needed?: No Implanted or Applied Medical D: Port-a-cath Past Medical History Surgeries: Appendectomy (At 11 years old), Orthopedic (L Hip replacement in 2016) Hypertension Dialysis Family Medical History Cancer (Prostate cancer in father), Diabetes (Sister and Father), Other Conditions/Hx (Lupus in Mother. Multiple Myeloma in grandmother.) Review of Systems Constitutional: chills, fever Respiratory: cough, short of breath Cardiovascular: No chest pain, No palpitations Gastrointestinal: No abdominal pain, No constipation, No diarrhea; nausea; No vomiting Musculoskeletal: No back pain Physical Exam Physical Exam Vital Signs Vital Signs - First Documented 09/15/21 09/15/21 10:04 19:48 Temp 39.1 Pulse 120 Resp 27 B/P (MAP) 171/105 (127) Pulse Ox 96 O2 Delivery Nasal Cannula O2 Flow Rate 2.00 FiO2 21 Capillary Refill : Less Than 3 Seconds Height, Weight, BMI Height: '" Weight: lbs. oz. kg; 16.00 BMI Method: General Appearance: No Apparent Distress, Chronically ill HEENT: PERRL/EOMI, Moist Mucous Membranes; No Scleral Icterus (L), No Scleral Icterus (R) Neck: Normal Inspection; No Lymphadenopathy (L), No Lymphadenopathy (R); Tender Lateral (Tender on right side near catheter site) Respiratory: Chest Non Tender, Lungs Clear, Normal Breath Sounds, No Accessory Muscle Use, No Respiratory Distress Cardiovascular: Regular Rate, Rhythm, No Murmur, Normal Peripheral Pulses Gastrointestinal: Normal Bowel Sounds, Non Tender, Soft Back: No CVA Tenderness (L), No CVA Tenderness (R) Extremity: Normal Capillary Refill, Normal Inspection, Non Tender, No Pedal Edema Neurologic/Psychiatric: Alert, Oriented x3, No Motor/Sensory Deficits, Normal Mood/Affect, water and sewer systems supervisor II-XII Norm as Tested Skin: Normal Color, Warm/Dry Lymphatic: No Adenopathy (Head and neck) Results Results/Procedures Labs Laboratory Tests 09/15/21 10:09 09/16/21 05:40 Patient resulted labs reviewed. Assessment/Plan Admission Diagnosis Assessment Infection of dialysis catheter - Cultures pending removal of catheter CKD - Followed by Dr. Aria Galarza in [facility] - Dialysis dependent Plan IV Pip/Tazo Limit IV fluids Closely monitor labs Removal of dialysis catheter with Dr. Montoya Send for culture and treat accordingly Replace catheter after serial negative blood cultures Resume dialysis ANAY ORTEZ DO 09/17/21 0603: History of Present Illness HPI/Chief Complaint CC: Hemodialysis catheter infection with bacteremia HPI: This is a 66yoWF clinic Pt of [facility] who just started on dialysis 06/17/21 due to hypertensive nephropathy who presented to the ER for hemodialysis with fever. Hemodialysis catheter was noted to be infected, swab now shows MRSA and bacteremia, blood culture shows MRSA. She was placed on Vancomycin and Zosyn empirically. Dr. Montoya will remove the hemodialysis catheter today and place another one at the end of the week after blood cultures are negative. Dr. Yin has been consulted and will perform echocardiogram. Source: patient Past Xzrbgcz-Lrfcto-Ylcpac Hx Patient Social History Marrital Status: Employed/Student: retired Smoking Status: Former Smoker (Smoked for 9 years, quit 40 years ago. Smoked 1 PPD.) Past Medical History Surgeries: Appendectomy (At 11 years old), Orthopedic (L Hip replacement in 2016) Hypertension Renal Failure Review of Systems Constitutional: see HPI, fever, malaise, weakness EENTM: no symptoms reported Respiratory: no symptoms reported Cardiovascular: no symptoms reported Gastrointestinal: no symptoms reported Genitourinary: no symptoms reported Musculoskeletal: no symptoms reported Skin: no symptoms reported Psychiatric/Neurological: No Symptoms Reported All Other Systems Reviewed Negative Unless Noted: Yes Physical Exam Physical Exam General Appearance: No Apparent Distress, Chronically ill Eyes: Right Eye Normal Inspection, Right Eye PERRL HEENT: PERRL/EOMI, Normal ENT Inspection, Pharynx Normal, Moist Mucous Membranes Neck: Full Range of Motion, Normal Inspection, Non Tender Respiratory: Chest Non Tender, Lungs Clear, Normal Breath Sounds, No Accessory Muscle Use, No Respiratory Distress Cardiovascular: Regular Rate, Rhythm, No Edema, No Gallop, No JVD, No Murmur, Normal Peripheral Pulses Gastrointestinal: Normal Bowel Sounds, No Organomegaly, No Pulsatile Mass, Non Tender, Soft Back: Normal Inspection, No CVA Tenderness, No Vertebral Tenderness Extremity: Normal Capillary Refill, Normal Inspection, Normal Range of Motion, Non Tender, No Calf Tenderness, No Pedal Edema Neurologic/Psychiatric: Alert, Oriented x3, No Motor/Sensory Deficits, Normal Mood/Affect Skin: Normal Color, Warm/Dry Lymphatic: No Adenopathy Assessment/Plan Admission Diagnosis Assessment: MRSA bacteremia End-stage kidney disease on dialysis Infected hemodialysis catheter status post removal by Dr. Montoya Hypertensive nephropathy Former smoker Plan: Vancomycin Zosyn until final cultures come back Hemodialysis holiday Replace hemodialysis catheter on Wednesday morning and dialysis on Wednesday Admission Status: Inpatient Order (span 2 midnights) Reason for Inpatient Admission: MRSA bacteremia Supervisory-Addendum Brief Verification & Attestation Participated in pt care: history, MDM, physical Personally performed: exam, history, MDM, supervision of care Care discussed with: Medical Student Procedures: n/a Results interpretation: Verified all documentation Verification and Attestation of Medical Student E/M Service A medical student performed and documented this service in my presence. I reviewed and verified all information documented by the medical student and made modifications to such information, when appropriate. I personally performed the physical exam and medical decision making. Anay Orozco Sep 17, 2021,06:03 ADA MEJIA Sep 16, 2021 12:01 ANAY OROZCO DO Sep 17, 2021 06:03
--- NOTE | 2021-09-16 12:04 | Consultation-Cardiology ---
HPI-Cardiology Cardiology Consultation Date of Consultation 09/16/21 Date of Admission Time Seen by Provider: 11:44 Indication: infected dialysis catheter HPI Patient is a 66 year old female with history of ESRD on HD. Admitted for infected Mahurker dialysis catheter. Patient has been having generalized weakness, fever, chills. Denies any chest pain or dyspnea. Home Medications & Allergies Allergies: Coded Allergies: No Known Drug Allergies (Unverified , 06/17/21) Home Medication List Reviewed: Yes [id number] Hx Patient Social History Smoking Status: Former Smoker (quit 40yrs ago) Have you traveled recently?: Yes Alcohol Use?: No (quit drinking beer after starting dialysis) Past Medical History ESRD, HTN Family Medical History Significant Family History: Diabetes (Father), Other Conditions/Hx (multiple myeloma, lupus) Review of Systems-General Review of Systems Constitutional: chills; No diaphoresis; fever; No weakness, No weight gain; weight loss (since beginning dialysis) EENTM: eye pain; No ear discharge, No hoarseness, No mouth pain, No nose pain, No throat pain Respiratory: cough; No dyspnea on exertion, No hemoptysis; short of breath Cardiovascular: No chest pain, No edema, No Hx of Intervention, No palpitations Gastrointestinal: No abdominal pain, No constipation, No hematemesis, No melena; nausea; No vomiting Genitourinary: decreased output; No dysuria, No frequency, No hematuria Musculoskeletal: back pain (from laying on hospital bed), joint pain (left hip- chronic); No muscle pain Skin: change in color (redness around catheter); No dryness, No lesions Psychiatric/Neurological: Denies Anxiety, Denies Depressed, Denies Emotional Problems; Headache; Denies Numbness, Denies Pre-Existing Deficit All Other Systems Reviewed Negative Unless Noted: Yes Reviewed Test Results Reviewed Test Results Lab Laboratory Tests 09/15/21 12:35: Urine Color YELLOW, Urine Clarity CLEAR, Urine pH 7.0, Urine Specific [place] 1.010L, Urine Protein 2+H, Urine Glucose (UA) NEGATIVE, Urine Ketones NEGATIVE, Urine Nitrite NEGATIVE, Urine Bilirubin NEGATIVE, Urine Urobilinogen 0.2, Urine Leukocyte Esterase TRACEH, Urine RBC (Auto) 1+H, Urine RBC RARE, Urine WBC 0-2, Urine Squamous Epithelial Cells RARE, Urine Crystals NONE, Urine Bacteria TRACE, Urine Casts PRESENT, Urine Granular Casts RARE, Urine Mucus NEGATIVE, Urine Culture Indicated NO 09/16/21 05:40: White Blood Count 15.0H, Red Blood Count 3.26L, Hemoglobin 9.7L, Hematocrit 29L, Mean Corpuscular Volume 89, Mean Corpuscular Hemoglobin 30, Mean Corpuscular Hemoglobin Concent 33, Red Cell Distribution Width 13.9, Platelet Count 210, Mean Platelet Volume 10.3, Immature Granulocyte % (Auto) 1, Neutrophils (%) (Auto) 79H, Lymphocytes (%) (Auto) 8L, Monocytes (%) (Auto) 11, Eosinophils (%) (Auto) 2, Basophils (%) (Auto) 0, Neutrophils # (Auto) 11.8H, Lymphocytes # (Auto) 1.2, Monocytes # (Auto) 1.6H, Eosinophils # (Auto) 0.3, Basophils # (Auto) 0.1, Immature Granulocyte # (Auto) 0.1, Sodium Level 134L, Potassium Level 2.8L, Chloride Level 103, Carbon Dioxide Level 19L, Anion Gap 12, Blood Urea Nitrogen 16, Creatinine 2.24H, Estimat Glomerular Filtration Rate 22, BUN/Creatinine Ratio 7, Glucose Level 85, Calcium Level 7.8L, Corrected Calcium 8.8, Total Bilirubin 0.5, Aspartate Amino Transf (AST/SGOT) 29, Alanine Aminotransferase (ALT/SGPT) 22, Alkaline Phosphatase 83, Total Protein 5.3L, Albumin 2.7L, Vancomycin Level Trough 9.7L Microbiology 09/15/21 Blood Culture - Preliminary, Resulted Probable Staph Aureus 09/15/21 Urine Culture - Final, Complete NO GROWTH 09/15/21 Gram Stain, Resulted Pending 09/15/21 Wound Culture - Preliminary, Resulted Staphylococcus aureus ECG Impression ECG Initial ECG Rhythm: Normal Sinus Physical Exam Physical Exam Vital Signs Vital Signs - First Documented 09/15/21 09/15/21 10:04 19:48 Temp 39.1 Pulse 120 Resp 27 B/P (MAP) 171/105 (127) Pulse Ox 96 O2 Delivery Nasal Cannula O2 Flow Rate 2.00 FiO2 21 Capillary Refill : Less Than 3 Seconds Height, Weight, BMI Height: '" Weight: lbs. oz. kg; 16.00 BMI Method: General Appearance: WD/WN, Anxious Eyes: Bilateral Eye Normal Inspection, Bilateral Eye PERRL, Bilateral Eye EOMI HEENT: PERRL/EOMI Neck: Normal Inspection Respiratory: Lungs Clear, No Accessory Muscle Use, Other (tachypneic; O2 sats 85% RA; 93% on 2L O2; labored breaathing) Cardiovascular: Regular Rate, Rhythm (98bpm) Gastrointestinal: Normal Bowel Sounds, Non Tender, Soft Extremity: Normal Capillary Refill, Normal Inspection, Normal Range of Motion, No Calf Tenderness, No Pedal Edema Neurologic/Psychiatric: Alert, Oriented x3, No Motor/Sensory Deficits, Normal Mood/Affect, shelter director II-XII Norm as Tested Skin: Warm/Dry, Other (Area around the Mahurkar catheter in the right upper chest just beneath the clavicle is tender to touch, slightly erythematous, purulent drainage is noted around the suture lines, no subcutaneous emphysema.) A/P-Cardiology Admission Diagnosis ESRD Infected dialysis catheter Diastolic CHF HTN Assessment/Plan ESRD, on HD, has infected dialysis catheter, Dr. Montoya consulted, planning for removal later today. Diastolic CHF, currently clinically compensated. Echo on 06/18/21: Mild to mod conc LVH, LVEF 50-55%, grade 1 diastolic dysfunction, hypokinesis of apex, mod TR with PA pressure 60 to 65 mmHg Malignant hypertension, restart home medications and continue to monitor. Gram-positive bacteremia, probably staph aureus. Echocardiogram transthoracic did not show any vegetation, cannot exclude underlying vegetation. I am planning to evaluate DAWOOD in the morning. Started on antibiotic, management per primary care physician Thank you for allowing us to participate in the management of Ms. Saleh. This is Prudence Sesay PA-C, as a scribe for Dr. Yin. Patient was seen and evaluated with Prudence, I examined the patient, she was scheduled for surgery later today Review of her records showed gram-positive bacteremia possible staph aureus High risk for endocarditis, transthoracic echo was reviewed and did not show any vegetation, I am planning to proceed with DAWOOD in the morning PRUDENCE GARCIA Sep 16, 2021 12:04 VERO YIN MD Sep 16, 2021 14:37
--- NOTE | 2021-09-16 12:22 | Anesthesia-General Post-Op ---
MAC Patient Condition Mental Status/LOC: Same as Preop Cardiovascular: Satisfactory Nausea/Vomiting: Absent Respiratory: Satisfactory Pain: Controlled Complications: Absent Post Op Complications Complications None Follow Up Care/Instructions Patient Instructions None needed. Anesthesiology Discharge Order Discharge Order Patient is doing well, no complaints, stable vital signs, no apparent adverse anesthesia problems. No complications reported per nursing. KENRICK BENNETT CRNA Sep 16, 2021 12:22
[2021-09-16] MEDS ORDERED: HYDROmorphone 2 MG/ML VIAL (DILAUDID) IV ONE (12:30)
[2021-09-16] MEDS: ONDANSETRON 4 MG/2 ML (SDV) Z0FRAN IVP PRN (12:57)
[2021-09-16] MEDS: ACETAMINOPHEN 325 MG TABLET PO PRN (13:16)
--- NOTE | 2021-09-16 13:19 | Progress Note-Post Operative ---
Post-Operative Progess Note Surgeon (s)/Refinery Operator Helper Crude Unit (s) Surgeon SALVATORE MAO DO Refinery Operator Helper Crude Unit: IVAN Fraire Pre-Operative Diagnosis Infected Dialysis Catheter Post-Operative Diagnosis Same Procedure & Operative Findings Date of Procedure 09/16/21 Procedure Performed/Findings Removal of Infected Dialysis Catheter After informed consent was obtained, the patient was brought to the operating room, placed on the table in supine position. She was sterilely prepped and draped in normal fashion. Her dialysis catheter was hanging out. The catheter was prepped and then we covered part of it. She was prepped and draped in normal fashion. Infiltrated around the catheter with lidocaine with epinephrine and then made a small incision going lateral towards the shoulder , made this incision with #15 blade, carried down through skin and subcutaneous tissue, deepened down to subcutaneous tissue with Bovie electrocautery down to the cuff on the catheter. I then carefully started pulling on the cuff and catheter; it easily pulled out. Once it was completely removed, actually let go of the pressure on the neck and did not get any back bleeding, able to then grasp the catheter tract with a hemostat and then suture ligated this with a 3-0 Vicryl. There was still no back bleeding at this point, irrigated with normal saline, then elected to leave this incision open. Area was then cleaned and dried and pressure dressing was placed directly over the incision and directly on the neck just to be safe. Area was cleaned and dried. Sponge, instrument and needle count correct at the end of the case. Anesthesia Type IV sedation by ELECTRIC DISTRIBUTION ENGINEER Estimated Blood Loss Estimated blood loss (mL): scant Specimens/Packing Specimens Removed catheter, tip sent for culture SALVATORE MAO DO Sep 16, 2021 13:19
[2021-09-16] MEDS ORDERED: AMLO-250 PO (13:56)
[2021-09-16] MEDS ORDERED: BUME1TAB8 PO (13:56)
[2021-09-16] MEDS ORDERED: CARV12.53 PO (13:56)
[2021-09-16] MEDS: HYDROcodone/APAP 5 MG/325 MG (LORTAB) TAB PO PRN (16:00)
[2021-09-16] MEDS ORDERED: PIPERACILLIN/TAZOBACTAM (BULK) 4.5 GM in NS (IVPB) 100 ML IV SCH (21:00)
[2021-09-17] VITALS (19 sets, daily range): BP systolic 116–183; BP diastolic 60–119
[2021-09-17] MEDS: RT-ALBUTEROL/IPRATROPIUM 3 ML (DUONEB) VIAL INH SCH ×4 (03:21→23:25)
[2021-09-17] MEDS ORDERED: TROUGH ORDER-PHARMACY XX SCH (06:00)
[2021-09-17 06:33] LABS: BASOPHILS % (AUTO) 0 % (0-10); EOSINOPHILS # (AUTO) 0.5 10^3/uL (0.0-0.3); EOSINOPHILS % (AUTO) 4 % (0-10); HEMATOCRIT 29 % (35-52); HEMOGLOBIN 9.7 g/dL (11.5-16.0); LYMPHOCYTES # (AUTO) 1.8 10^3/uL (1.0-4.0); LYMPHOCYTES % (AUTO) 12 % (12-44); MEAN CORPUSCULAR HEMOGLOBIN 30 pg (25-34); MEAN CORPUSCULAR HGB CONC 34 g/dL (32-36); MEAN CORPUSCULAR VOLUME 89 fL (80-99); MEAN PLATELET VOLUME 9.5 fL (9.0-12.2); MONOCYTES # (AUTO) 1.6 10^3/uL (0.0-1.0); MONOCYTES % (AUTO) 11 % (0-12); NEUTROPHILS # (AUTO) 10.6 10^3/uL (1.8-7.8); NEUTROPHILS % (AUTO) 72 % (42-75); PLATELET COUNT 247 10^3/uL (130-400); WHITE BLOOD COUNT 14.7 10^3/uL (4.3-11.0)
[2021-09-17 06:43] LABS: ALBUMIN 2.8 GM/DL (3.2-4.5)
[2021-09-17 06:44] LABS: POTASSIUM 2.6 MMOL/L (3.6-5.0)
[2021-09-17 06:46] LABS: TOTAL PROTEIN 5.6 GM/DL (6.4-8.2)
[2021-09-17 06:48] LABS: BILIRUBIN,TOTAL 0.4 MG/DL (0.1-1.0)
[2021-09-17 06:49] LABS: CREATININE SERUM 2.65 MG/DL (0.60-1.30)
[2021-09-17 06:59] LABS: VANCOMYCIN,TROUGH 22.1 UG/ML (10.0-20.0)
[2021-09-17] MEDS: POTASSIUM CL 10MEQ/50ML IVPB 50 ML IV SCH ×4 (08:09→13:03)
--- NOTE | 2021-09-17 09:33 | Cardiology Progress Note ---
Subjective Date Seen by Provider: Sep 17, 2021 Time Seen by Provider: 08:30 Subjective/Events-last exam Patient is sitting up in bed, no new complaints. Review of Systems General: No Chills, No Night Sweats, No Fatigue, No Malaise, No Appetite, No Other HEENT: No Head Aches, No Visual Changes, No Eye Pain, No Ear Pain, No Dysphasia, No Sinus Congestion, No Post Nasal Drip, No Sore Throat, No Other Pulmonary: No Dyspnea, No Cough, No Pleuritic Chest Pain, No Other Cardiovascular: No: Chest Pain, Palpitations, Orthopnea, Paroxysmal Noc. Dyspnea, Edema, Lt Headedness, Other Focused Exam Lactate Level 09/15/21 10:09: Lactic Acid Level 1.94 Objective-Cardiology Exam Last Set of Vital Signs Vital Signs 09/15/21 09/17/21 09/17/21 09/17/21 19:48 08:00 12:21 12:26 Temp 36.4 Pulse 86 Resp 98 B/P (MAP) 152/95 (114) Pulse Ox 100 O2 Delivery OxyMask O2 Flow Rate 6.00 FiO2 21 I&O Intake and Output 09/16/21 23:59 Intake Total 1680 ml Balance 1680 ml Intake Oral 1320 ml IV Total 360 ml # Voids 3 # Bowel Movements 1 General: Alert, Oriented X3, Cooperative HEENT: Atraumatic, PERRLA Neck: Supple, No JVD, No Thyromegaly Lungs: Clear to Auscultation, Normal Air Movement Heart: Regular Rate Abdomen: Normal Bowel Sounds, Soft Skin: No Rashes, No Significant Lesion Neuro: Cranial Nerves 3-12 NL Psych/Mental Status: Mental Status NL, Mood NL Results Lab Laboratory Tests 09/17/21 06:16 A/P-Cardiology Admission Diagnosis ESRD Infected dialysis catheter Diastolic CHF HTN Assessment/Plan ESRD, on HD, has infected dialysis catheter, Dr. Montoya consulted, s/p removal. Diastolic CHF, currently clinically compensated. Echo on 06/18/21: Mild to mod conc LVH, LVEF 50-55%, grade 1 diastolic dysfunction, hypokinesis of apex, mod TR with PA pressure 60 to 65 mmHg Malignant hypertension, controlled, continue to monitor blood pressure Gram-positive bacteremia, probably staph aureus. Echocardiogram transthoracic did not show any vegetation, cannot exclude underlying vegetation. Planning to evaluate DAWOOD this morning. Started on antibiotic, management per primary care physician Patient was seen and evaluated with Prudecne, examination performed, management plan was discussed, agree with the current scribed note, I made few changes to the note using Italic font Patient was seen at bedside, laying down comfortably Underwent DAWOOD showing no vegetation, normal left ventricular function, mild mitral regurgitation Blood pressure is better control at this time Underwent the surgery yesterday Management per medical team Continue to monitor PRUDENCE GARCIA Sep 17, 2021 09:33 VERO MILLER MD Sep 17, 2021 12:33
[2021-09-17] MEDS: SENNA W/DOCUSATE (SENOKOT S) TABLET PO SCH ×2 (09:35→20:41)
[2021-09-17] MEDS ORDERED: NS IV 1000 ML 1,000 ML ONE (11:38)
[2021-09-17] MEDS ORDERED: LIDOCAINE 2% VISCOUS 15 ML UDC ONE (11:38)
[2021-09-17] MEDS ORDERED: NS IV 1000 ML 1,000 ML IV ONE (11:45)
[2021-09-17] MEDS ORDERED: MIDAZOLAM 5 MG/5 ML (VERSED) VIAL ONE (11:48)
[2021-09-17] MEDS ORDERED: fentaNYL INJ 100 MCG/2 ML AMP ONE (11:48)
[2021-09-17] MEDS ORDERED: LIDOCAINE 2% VISCOUS 15 ML UDC PO ONE (12:00)
[2021-09-17] MEDS ORDERED: fentaNYL INJ 100 MCG/2 ML AMP IV ONE (12:00)
[2021-09-17] MEDS ORDERED: MIDAZOLAM 5 MG/5 ML (VERSED) VIAL IV ONE (12:00)
--- NOTE | 2021-09-17 12:21 | Progress Note - Hospitalist ---
LEONARDO ALTAMIRANO 09/17/21 1221: Subjective HPI/CC On Admission Date Seen by Provider: Sep 17, 2021 Time Seen by Provider: 07:30 CC: Hemodialysis catheter infection with bacteremia HPI: This is a 66yoWF clinic Pt of [facility] who just started on dialysis 06/17/21 due to hypertensive nephropathy who presented to the ER for hemodialysis with fever. Hemodialysis catheter was noted to be infected, swab now shows MRSA and bacteremia, blood culture shows MRSA. She was placed on Vancomycin and Zosyn empirically. Dr. Montoya will remove the hemodialysis catheter today and place another one at the end of the week after blood cultures are negative. Dr. Yin has been consulted and will perform echocardiogram. Subjective/Events-last exam Patient reports feeling much better today, states that she felt like her fever broke last night. She is voiding okay and is able to get up and ambulate. Still on 2.0L O2 Nasal cannula. Patient denies N/V, fever, SOB, dysuria, diarrhea, constipation, swelling. Blood cultures grew out MRSA. Patient is undergoing a transthoracic echo today to look for vegetations on valves. Patient is currently NPO and would like to progress diet as soon as her procedure is over. Focused Exam Lactate Level 09/15/21 10:09: Lactic Acid Level 1.94 Objective Exam Vital Signs Vital Signs Date Time Temp Pulse Resp B/P (MAP) Pulse Ox O2 Delivery O2 Flow Rate FiO2 09/17/21 15:30 36.6 93 18 161/99 (119) 99 Room Air 09/17/21 14:30 2.00 09/15/21 19:48 21 Capillary Refill : Less Than 3 Seconds General Appearance: No Apparent Distress, WD/WN HEENT: PERRL/EOMI, Moist Mucous Membranes Neck: Full Range of Motion, Normal Inspection, Supple Respiratory: Lungs Clear, Normal Breath Sounds, No Accessory Muscle Use, No Respiratory Distress Cardiovascular: Regular Rate, Rhythm, No Edema, Normal Peripheral Pulses Gastrointestinal: No Organomegaly, Non Tender, Soft Rectal: Deferred Extremity: Normal Inspection, Non Tender, No Calf Tenderness, No Pedal Edema Neurologic/Psychiatric: Alert, Oriented x3, Normal Mood/Affect Skin: Normal Color, Warm/Dry Results/Procedures Lab Laboratory Tests 09/17/21 06:16 Patient resulted labs reviewed. Assessment/Plan Assessment and Plan Assess & Plan/Chief Complaint Assessment: MRSA bacteremia End-stage kidney disease on dialysis Infected hemodialysis catheter status post removal by Dr. Montoya Hypertensive nephropathy Former smoker Plan: Continue Vancomycin D/C Zosyn - Blood cultures didn't show gram (-)'s or anaerobes. Progress diet to liquids and food after TTE, will have to go NPO again on Blood cultures today (09/17) and tomorrow (09/18) Replace hemodialysis catheter on Wednesday morning and dialysis on Wednesday ANAY OROZCO DO 09/18/21 0555: Subjective Subjective/Events-last exam Pt feels really well Fever broke last night Blood cultures X2 ordered DAWOOD will be done today to check for vegetations Will obtain another set of blood cultures tomorrow and as long as everything is normal she will have a hemodialysis catheter placed by Dr. Montoya Wednesday morning Objective Exam General Appearance: No Apparent Distress, WD/WN, Chronically ill Respiratory: Lungs Clear, Normal Breath Sounds Cardiovascular: Regular Rate, Rhythm Assessment/Plan Assessment and Plan Assess & Plan/Chief Complaint BCx x 2 again today Vanc Monitor creat HCO3 and potassium Supervisory-Addendum Brief Verification & Attestation Participated in pt care: history, MDM, physical Personally performed: exam, history, MDM, supervision of care Care discussed with: Medical Student Procedures: n/a Results interpretation: Verified all documentation Verification and Attestation of Medical Student E/M Service A medical student performed and documented this service in my presence. I reviewed and verified all information documented by the medical student and made modifications to such information, when appropriate. I personally performed the physical exam and medical decision making. Anay Orozco Sep 18, 2021,05:55 LEONARDO ALTAMIRANO Sep 17, 2021 12:21 ANAY OROZCO DO Sep 18, 2021 05:55
--- NOTE | 2021-09-17 12:31 | Conscious Sedation/ASA ---
Conscious Sedation Pre-Proced Time 11:30 ASA Score 3 For ASA 3 and 4: Consider anesthesia and medical clearance. Also, for patients with a history of failed moderate sedation consider anesthesia. Airway Lungs Heart ASA score ASA 1: a normal healthy patient ASA 2: a patient with a mild systemic disease (mid diabetes, controlled hypertension, obesity x ASA 3: a patient with a severe systemic disease that limits activity (angina, COPD, prior Myocardial infarction) ASA 4: a patient with an incapacitating disease that is a constant threat to life (CHF, renal failure) ASA 5: a moribund patient not expected to survive 24 hrs. (ruptured aneurysm) ASA 6: a declared brain- patient whose organs are being harvested. For emergent operations, add the letter E after the classification Mallampati Classification Grade 3 Sedation Plan Analgesia, Amnesia, Plan communicated to team members, Discussed options with patient/fam, Discussed risks with patient/fam The patient is an appropriate candidate to undergo the planned procedure, sedation, and anesthesia. The patient immediately re-assessed prior to indication. VERO MILLER MD Sep 17, 2021 12:31
--- NOTE | 2021-09-17 13:32 | Progress Note - Surgery ---
ANGELYJENNIFER 09/17/21 1332: Subjective Date Seen by a Provider: Sep 17, 2021 Time Seen by a Provider: 07:04 Subjective/Events-last exam Pt reports that she is feeling better today. Dialysis catheter was removed yesterday. She has no concerns about her wound. Pt underwent a DAWOOD today with Dr. Yin Review of Systems General: No Chills, No Night Sweats HEENT: No Head Aches, No Visual Changes Pulmonary: No Dyspnea, No Cough Cardiovascular: No: Chest Pain, Palpitations Gastrointestinal: No: Nausea, Vomiting Genitourinary: No Dysuria, No Frequency Musculoskeletal: No: neck pain, shoulder pain, back pain Neurological: No: Weakness, Numbness Focused Exam Lactate Level 09/15/21 10:09: Lactic Acid Level 1.94 Objective Exam Vital Signs Date Time Temp Pulse Resp B/P (MAP) Pulse Ox O2 Delivery O2 Flow Rate FiO2 09/17/21 12:58 80 16 143/83 (103) 94 Nasal Cannula 2.00 09/17/21 12:39 77 16 141/91 (108) 91 Room Air 09/17/21 12:26 98 152/95 (114) OxyMask 6.00 09/17/21 12:21 86 16 183/119 (140) 100 OxyMask 6.00 09/17/21 12:17 77 16 168/101 (123) 99 OxyMask 6.00 09/17/21 12:00 36.8 96 18 155/88 (110) 93 Nasal Cannula 2.00 09/17/21 11:58 99 OxyMask 6.00 09/17/21 11:46 75 16 150/93 (112) 98 Room Air 09/17/21 08:00 Nasal Cannula 2.00 09/17/21 08:00 36.4 86 18 145/86 (105) 97 Nasal Cannula 2.00 09/17/21 07:47 97 Nasal Cannula 1.00 09/17/21 07:00 77 09/17/21 03:31 37.2 85 16 153/89 (110) 93 Nasal Cannula 2.00 09/17/21 01:00 75 09/17/21 00:00 37.1 70 18 116/60 (78) 94 Nasal Cannula 2.00 09/16/21 20:00 Nasal Cannula 2.00 09/16/21 20:00 37.7 78 20 109/48 (68) 93 Nasal Cannula 2.00 09/16/21 19:13 85 09/16/21 15:45 37.8 80 20 126/74 (91) 94 Nasal Cannula 1.50 09/16/21 15:17 Nasal Cannula 1.00 09/16/21 14:00 37.5 09/16/21 13:50 37.5 I & O 09/17/21 07:00 Intake Total 2180 ml Balance 2180 ml Capillary Refill : Less Than 3 Seconds General Appearance: No Apparent Distress, WD/WN HEENT: PERRL/EOMI; No Photophobia Neck: Non Tender, Supple Respiratory: Lungs Clear, Normal Breath Sounds, No Accessory Muscle Use, No Respiratory Distress Cardiovascular: Regular Rate, Rhythm, No Edema, Normal Peripheral Pulses Gastrointestinal: non tender, soft Extremity: Non Tender, No Calf Tenderness, No Pedal Edema Neurologic/Psychiatric: Alert, Normal Mood/Affect Skin: Normal Color, Warm/Dry Lymphatic: No Adenopathy (cervical) Results Lab Laboratory Tests 09/17/21 06:16: White Blood Count 14.7H, Red Blood Count 3.25L, Hemoglobin 9.7L, Hematocrit 29L, Mean Corpuscular Volume 89, Mean Corpuscular Hemoglobin 30, Mean Corpuscular Hemoglobin Concent 34, Red Cell Distribution Width 14.3, Platelet Count 247, Mean Platelet Volume 9.5, Immature Granulocyte % (Auto) 1, Neutrophils (%) (Auto) 72, Lymphocytes (%) (Auto) 12, Monocytes (%) (Auto) 11, Eosinophils (%) (Auto) 4, Basophils (%) (Auto) 0, Neutrophils # (Auto) 10.6H, Lymphocytes # (Auto) 1.8, Monocytes # (Auto) 1.6H, Eosinophils # (Auto) 0.5H, Basophils # (Auto) 0.0, Immature Granulocyte # (Auto) 0.2H, Sodium Level 135, Potassium Level 2.6L, Chloride Level 103, Carbon Dioxide Level 21, Anion Gap 11, Blood Urea Nitrogen 22H, Creatinine 2.65#H, Estimat Glomerular Filtration Rate 18, BUN/Creatinine Ratio 8, Glucose Level 87, Calcium Level 8.0L, Corrected Calcium 9.0, Magnesium Level 1.7, Total Bilirubin 0.4, Aspartate Amino Transf (AST/SGOT) 37H, Alanine Aminotransferase (ALT/SGPT) 28, Alkaline Phosphatase 141H, Total Protein 5.6L, Albumin 2.8L, Vancomycin Level Trough 22.1H Microbiology 09/16/21 Gram Stain - Final, Resulted 09/16/21 Anaerobic Culture, Resulted Pending 09/16/21 Wound Culture - Preliminary, Resulted Staphylococcus aureus 09/15/21 Blood Culture - Preliminary, Resulted Staphylococcus aureus 09/15/21 Urine Culture - Final, Complete NO GROWTH 09/15/21 Gram Stain - Final, Resulted 09/15/21 Wound Culture - Preliminary, Resulted Staphylococcus aureus 09/15/21 MRSA Screen - Final, Complete MRSA not isolated Assessment/Plan Assessment/Plan Assessment/Plan Assessment Infected hemodialysis catheter removed MRSA bacteremia End-stage kidney disease on dialysis HTN Plan Continue to monitor dialysis catheter wound. Continue antibiotics to treat presumed MRSA infection Continue to monitor labs for kidney disease. Managed by SALVATORE Alex DO 09/17/21 1435: Subjective Time Seen by a Provider: 13:18 Subjective/Events-last exam Pt seen and examined, had just gotten back from her DAWOOD. Denies any problems, states she is feeling good after getting infected catheter out. Review of Systems General: No Chills, No Night Sweats Pulmonary: No Dyspnea, No Cough Cardiovascular: No: Chest Pain, Palpitations Gastrointestinal: No: Nausea, Vomiting Objective Exam General Appearance: No Apparent Distress, WD/WN HEENT: PERRL/EOMI Respiratory: Lungs Clear, Normal Breath Sounds, No Accessory Muscle Use Cardiovascular: Regular Rate, Rhythm, No Murmur Gastrointestinal: non tender, soft Skin: Other (right chest wall at site of catheter, no erythema and no signs of infection) Assessment/Plan Assessment/Plan Assessment/Plan Assessment Infected hemodialysis catheter removed MRSA bacteremia End-stage kidney disease on dialysis HTN Plan Continue to monitor dialysis catheter wound. Continue antibiotics to treat presumed MRSA infection. Continue to monitor labs for kidney disease. Plan for placement of dialysis catheter on Wednesday as long as blood culture negative Supervisory-Addendum Brief Verification & Attestation Participated in pt care: history, MDM, physical Personally performed: exam, history, MDM, supervision of care Care discussed with: Medical Student Procedures: n/a Verification and Attestation of Medical Student E/M Service A medical student performed and documented this service. I then reviewed and verified all information documented by the medical student and made modifications to such information, when appropriate. I personally performed a physical exam, medical decision making and then discussed any differences between the notes and made revisions as necessary to create one note. Salvatore Mao , 09/17/21 , 14:35 JENNIFER AU Sep 17, 2021 13:32 SALVATORE MAO DO Sep 17, 2021 14:35
[2021-09-18] VITALS (7 sets, daily range): BP systolic 132–170; BP diastolic 79–96
[2021-09-18] MEDS: RT-ALBUTEROL/IPRATROPIUM 3 ML (DUONEB) VIAL INH SCH ×3 (03:47→20:10)
[2021-09-18 06:33] LABS: BASOPHILS # (AUTO) 0.1 10^3/uL (0.0-0.1); BASOPHILS % (AUTO) 1 % (0-10); EOSINOPHILS % (AUTO) 7 % (0-10); HEMATOCRIT 29 % (35-52); HEMOGLOBIN 9.5 g/dL (11.5-16.0); LYMPHOCYTES # (AUTO) 2.2 10^3/uL (1.0-4.0); LYMPHOCYTES % (AUTO) 15 % (12-44); MEAN CORPUSCULAR HEMOGLOBIN 29 pg (25-34); MEAN CORPUSCULAR HGB CONC 33 g/dL (32-36); MEAN CORPUSCULAR VOLUME 90 fL (80-99); MEAN PLATELET VOLUME 9.7 fL (9.0-12.2); MONOCYTES # (AUTO) 1.4 10^3/uL (0.0-1.0); MONOCYTES % (AUTO) 10 % (0-12); NEUTROPHILS # (AUTO) 9.1 10^3/uL (1.8-7.8); NEUTROPHILS % (AUTO) 65 % (42-75); PLATELET COUNT 285 10^3/uL (130-400)
[2021-09-18 06:57] LABS: ALBUMIN 2.7 GM/DL (3.2-4.5)
[2021-09-18 06:59] LABS: CALCIUM 8.1 MG/DL (8.5-10.1)
[2021-09-18 07:00] LABS: TOTAL PROTEIN 5.6 GM/DL (6.4-8.2)
[2021-09-18 07:02] LABS: BILIRUBIN,TOTAL 0.4 MG/DL (0.1-1.0)
[2021-09-18 07:03] LABS: CREATININE SERUM 2.64 MG/DL (0.60-1.30)
[2021-09-18 07:12] LABS: VANCOMYCIN,TROUGH 14.7 UG/ML (10.0-20.0)
--- NOTE | 2021-09-18 07:54 | Progress Note - Surgery ---
JENNIFER AU 09/18/21 0754: Subjective Date Seen by a Provider: Sep 18, 2021 Time Seen by a Provider: 07:31 Subjective/Events-last exam Pt reports that the site where she had the hemodialysis catheter removed from is slightly tender and itchy. Denies any fevers or chills. When asked she denied whatley ving any other concerns. Review of Systems General: No Chills, No Fatigue HEENT: No Head Aches, No Visual Changes Pulmonary: No Dyspnea, No Cough Cardiovascular: No: Palpitations Gastrointestinal: No: Nausea, Vomiting, Abdominal Pain Genitourinary: No Dysuria, No Frequency Musculoskeletal: No: neck pain, back pain, leg pain Neurological: No: Weakness, Numbness Focused Exam Lactate Level 09/15/21 10:09: Lactic Acid Level 1.94 Objective Exam Vital Signs Date Time Temp Pulse Resp B/P (MAP) Pulse Ox O2 Delivery O2 Flow Rate FiO2 09/18/21 04:57 36.8 70 18 132/82 (99) 95 Nasal Cannula 2.00 09/18/21 03:52 80 94 28 09/18/21 00:00 37.2 76 20 140/79 (99) 95 Nasal Cannula 2.00 09/17/21 20:49 97 Nasal Cannula 2.00 09/17/21 20:33 Nasal Cannula 2.00 09/17/21 20:00 37.1 87 20 159/92 (114) 95 Nasal Cannula 2.00 09/17/21 15:30 36.6 93 18 161/99 (119) 99 Room Air 09/17/21 15:00 90 161/99 (119) 88 Room Air 09/17/21 14:30 79 17 166/91 (116) 96 Nasal Cannula 2.00 09/17/21 14:00 79 18 164/99 (120) 96 Nasal Cannula 2.00 09/17/21 13:55 76 18 161/93 (115) 95 Nasal Cannula 2.00 95.00 09/17/21 13:40 78 17 150/92 (111) 96 Nasal Cannula 2.00 96.00 09/17/21 13:25 78 16 143/83 (103) 90 Nasal Cannula 2.00 09/17/21 13:11 77 16 150/88 (108) 96 Nasal Cannula 2.00 09/17/21 12:58 80 16 143/83 (103) 94 Nasal Cannula 2.00 09/17/21 12:39 77 16 141/91 (108) 91 Room Air 09/17/21 12:26 98 152/95 (114) OxyMask 6.00 09/17/21 12:21 86 16 183/119 (140) 100 OxyMask 6.00 09/17/21 12:17 77 16 168/101 (123) 99 OxyMask 6.00 09/17/21 12:00 36.8 96 18 155/88 (110) 93 Nasal Cannula 2.00 09/17/21 11:58 99 OxyMask 6.00 09/17/21 11:46 75 16 150/93 (112) 98 Room Air 09/17/21 08:00 Nasal Cannula 2.00 09/17/21 08:00 36.4 86 18 145/86 (105) 97 Nasal Cannula 2.00 I & O 09/18/21 07:00 Intake Total 1890 ml Balance 1890 ml Capillary Refill : Less Than 3 Seconds General Appearance: No Apparent Distress, WD/WN, Chronically ill HEENT: PERRL/EOMI; No Photophobia Neck: Normal Inspection, Non Tender, Supple Respiratory: Lungs Clear, Normal Breath Sounds Cardiovascular: No Murmur, Normal Peripheral Pulses, Tachycardia Gastrointestinal: non tender, soft Extremity: Non Tender, No Calf Tenderness, No Pedal Edema Neurologic/Psychiatric: Alert, Normal Mood/Affect Skin: Normal Color, Warm/Dry, Other (Area over right clavicle where hemodialysi s catheter was removed from appears to be healing well. ) Lymphatic: No Adenopathy (cervical) Results Lab Laboratory Tests 09/18/21 05:16: White Blood Count 14.0H, Red Blood Count 3.23L, Hemoglobin 9.5L, Hematocrit 29L, Mean Corpuscular Volume 90, Mean Corpuscular Hemoglobin 29, Mean Corpuscular Hemoglobin Concent 33, Red Cell Distribution Width 14.4, Platelet Count 285, Mean Platelet Volume 9.7, Immature Granulocyte % (Auto) 2, Neutrophils (%) (Auto) 65, Lymphocytes (%) (Auto) 15, Monocytes (%) (Auto) 10, Eosinophils (%) (Auto) 7, Basophils (%) (Auto) 1, Neutrophils # (Auto) 9.1H, Lymphocytes # (Auto) 2.2, Monocytes # (Auto) 1.4H, Eosinophils # (Auto) 1.0H, Basophils # (Auto) 0.1, Immature Granulocyte # (Auto) 0.3H, Sodium Level 135, Potassium Level 3.0L, Chloride Level 106, Carbon Dioxide Level 19L, Anion Gap 10, Blood Urea Nitrogen 22H, Creatinine 2.64H, Estimat Glomerular Filtration Rate 18, BUN/Creatinine Ratio 8, Glucose Level 83, Calcium Level 8.1L, Corrected Calcium 9.1, Total Bilirubin 0.4, Aspartate Amino Transf (AST/SGOT) 36H, Alanine Aminotransferase (ALT/SGPT) 29, Alkaline Phosphatase 170H, Total Protein 5.6L, Albumin 2.7L, Vancomycin Level Trough 14.7 Microbiology 09/16/21 Gram Stain - Final, Resulted 09/16/21 Anaerobic Culture - Preliminary, Resulted Culture In Progress 09/16/21 Wound Culture - Preliminary, Resulted Staphylococcus aureus 09/15/21 Blood Culture - Preliminary, Resulted Staphylococcus aureus 09/15/21 Urine Culture - Final, Complete NO GROWTH 09/15/21 Gram Stain - Final, Resulted 09/15/21 Wound Culture - Preliminary, Resulted Staphylococcus aureus 09/15/21 MRSA Screen - Final, Complete MRSA not isolated Assessment/Plan Assessment/Plan Assessment/Plan Assessment Infected hemodialysis catheter removed MRSA bacteremia End-stage kidney disease on dialysis HTN Plan Continue to monitor dialysis catheter wound. Continue antibiotics to treat presumed MRSA infection. Continue to monitor labs for kidney disease. Plan for placement of dialysis catheter on Wednesday as long as blood culture negative WILLIS MONTOYA DO 09/18/21 1339: Subjective Time Seen by a Provider: 11:56 Subjective/Events-last exam Pt seen and examined, no new complaints. Review of Systems General: No Chills, No Fatigue Pulmonary: No Dyspnea, No Cough Cardiovascular: No: Palpitations Gastrointestinal: No: Nausea, Vomiting, Abdominal Pain Genitourinary: No Dysuria, No Frequency Objective Exam General Appearance: No Apparent Distress, Chronically ill HEENT: PERRL/EOMI Respiratory: Lungs Clear, Normal Breath Sounds, No Accessory Muscle Use, No Respiratory Distress Cardiovascular: Regular Rate, Rhythm, No Murmur Gastrointestinal: non tender, soft Neurologic/Psychiatric: Alert, Normal Mood/Affect Skin: Normal Color, Warm/Dry, Other (Area over right clavicle where hemodialysis catheter was removed from appears to be healing well. ) Assessment/Plan Assessment/Plan Assessment/Plan Assessment Infected hemodialysis catheter removed MRSA bacteremia End-stage kidney disease on dialysis HTN Plan Continue to monitor dialysis catheter wound. Continue antibiotics to treat presumed MRSA infection. Continue to monitor labs for kidney disease. Plan to try to place dialysis catheter on Wednesday; however, I am not very confident that will happen. Can place temporary catheter, but also spoke to [facility] [employer] who states we can wait even until Wednesday before she has to have dialysis. Waiting on negative Blood clx would be best. Supervisory-Addendum Brief Verification & Attestation Participated in pt care: history, MDM, physical Personally performed: exam, history, MDM, supervision of care Care discussed with: Medical Student Procedures: n/a Verification and Attestation of Medical Student E/M Service A medical student performed and documented this service. I then reviewed and verified all information documented by the medical student and made modifications to such information, when appropriate. I personally performed a physical exam, medical decision making and then discussed any differences between the notes and made revisions as necessary to create one note. Willis Montoya , 09/18/21 , 13:39 JENNIFER AU Sep 18, 2021 07:54 WILLIS MONTOYA DO Sep 18, 2021 13:39
[2021-09-18] MEDS: SENNA W/DOCUSATE (SENOKOT S) TABLET PO SCH ×2 (08:03→19:49)
--- NOTE | 2021-09-18 08:51 | Cardiology Progress Note ---
Subjective Date Seen by Provider: Sep 18, 2021 Time Seen by Provider: 08:49 Subjective/Events-last exam Patient is sitting up in bed, denies any chest pain or dyspnea. Review of Systems General: No Chills, No Night Sweats, No Fatigue, No Malaise, No Appetite, No Other HEENT: No Head Aches, No Visual Changes, No Eye Pain, No Ear Pain, No Dysphasia, No Sinus Congestion, No Post Nasal Drip, No Sore Throat, No Other Pulmonary: No Dyspnea, No Cough, No Pleuritic Chest Pain, No Other Cardiovascular: No: Chest Pain, Palpitations, Orthopnea, Paroxysmal Noc. Dyspnea, Edema, Lt Headedness, Other Focused Exam Lactate Level Objective-Cardiology Exam Last Set of Vital Signs Vital Signs 09/18/21 09/18/21 09/18/21 03:52 04:57 12:04 Temp 36.9 Pulse 84 Resp 18 B/P (MAP) 170/96 (120) Pulse Ox 91 O2 Delivery Room Air O2 Flow Rate 2.00 FiO2 28 I&O Intake and Output 09/18/21 00:00 Intake Total 1940 ml Balance 1940 ml Intake Oral 1940 ml # Voids 6 General: Alert, Oriented X3, Cooperative HEENT: Atraumatic, PERRLA Neck: Supple, No JVD, No Thyromegaly Lungs: Clear to Auscultation, Normal Air Movement Heart: Regular Rate Abdomen: Normal Bowel Sounds, Soft Skin: No Rashes, No Significant Lesion Neuro: Cranial Nerves 3-12 NL Psych/Mental Status: Mental Status NL, Mood NL Results Lab Laboratory Tests 09/18/21 05:16 A/P-Cardiology Admission Diagnosis ESRD Infected dialysis catheter Diastolic CHF HTN Assessment/Plan ESRD, on HD, has infected dialysis catheter, Dr. Montoya consulted, s/p removal. Diastolic CHF, currently clinically compensated. Echo on 06/18/21: Mild to mod conc LVH, LVEF 50-55%, grade 1 diastolic dysfunction, hypokinesis of apex, mod TR with PA pressure 60 to 65 mmHg Gram-positive bacteremia, staph aureus, presumed MRSA. DAWOOD did not show any vegetation. Started on antibiotic, management per primary care physician Hypertension, history of malignant hypertension, poor control, restart amlodipine and Coreg and monitor tolerance and response Supervisory-Addendum Brief Supervisory Addendum Participated in pt care: history, MDM, physical Personally performed: exam, history, MDM Care discussed with: ELISE Results interpretation: Verified all documentation Notes: Patient was seen and evaluated with Prudence, examination performed, management plan was discussed, agree with the current scribed note, I made few changes to the note using Italic font Patient was seen at bedside, laying down comfortably, blood pressure is still elevated I will restart Coreg and amlodipine and monitor tolerance and response Patient did not have any vegetation on transthoracic echocardiogram and on DAWOOD PRUDENCE GARCIA Sep 18, 2021 08:51 VERO MILLER MD Sep 18, 2021 12:32
[2021-09-18] MEDS: VANCOMYCIN 1 GM/NS 250 ML IVPB IV SCH ×2 (10:38)
[2021-09-18] MEDS: ACETAMINOPHEN 325 MG TABLET PO PRN ×2 (11:36→22:38)
--- NOTE | 2021-09-18 13:22 | Progress Note - Hospitalist ---
LEONARDO ALTAMIRANO 09/18/21 1322: Subjective HPI/CC On Admission Date Seen by Provider: Sep 18, 2021 Time Seen by Provider: 08:20 CC: Hemodialysis catheter infection with bacteremia HPI: This is a 66yoWF clinic Pt of [facility] who just started on dialysis 06/17/21 due to hypertensive nephropathy who presented to the ER for hemodialysis with fever. Hemodialysis catheter was noted to be infected, swab now shows MRSA and bacteremia, blood culture shows MRSA. She was placed on Vancomycin and Zosyn empirically. Dr. Montoya will remove the hemodialysis catheter today and place another one at the end of the week after blood cultures are negative. Dr. Yin has been consulted and will perform echocardiogram. Subjective/Events-last exam Patient states she feels better today than yesterday. Only complaint is that port-site itches and is having a little drainage. Is happy she can have some coffee before having to go NPO again for catheter placement wednesday. Echo and TTE were negative for vegetation. Blood cultures from yesterday grew out MRSA. Called Dr. Knapp, shipping and receiving clerk from [place], to discuss treatment options if repeat cultures today grew out MRSA again. Dr. Knapp stated because her BUN was remaining relatively stable that if cultures grow out MRSA again then pt can stay on dialysis holiday until Wednesday, rather than having a temporary port placed for a round of dialysis. Also recommended keeping an eye out for any new abnormal pains, as some dialysis patients will seed infection in abnormal spaces. Dr. Knapp asked that we keep her updated and reach out with any questions or concerns. General Surgery, Dr. Montoya, is on board with this plan. Objective Exam Vital Signs Vital Signs Date Time Temp Pulse Resp B/P (MAP) Pulse Ox O2 Delivery O2 Flow Rate FiO2 09/18/21 12:04 36.9 84 18 170/96 (120) 91 Room Air 09/18/21 04:57 2.00 09/18/21 03:52 28 Capillary Refill : Less Than 3 Seconds General Appearance: No Apparent Distress, WD/WN HEENT: PERRL/EOMI, Moist Mucous Membranes Neck: Non Tender, Supple Respiratory: Chest Non Tender, Lungs Clear, Normal Breath Sounds, No Accessory Muscle Use, No Respiratory Distress Cardiovascular: Regular Rate, Rhythm, No Murmur, Normal Peripheral Pulses Gastrointestinal: Non Tender, Soft Rectal: Deferred Extremity: Normal Capillary Refill, Non Tender, No Calf Tenderness, No Pedal Edema Neurologic/Psychiatric: Alert, Oriented x3, Normal Mood/Affect Skin: Normal Color, Warm/Dry Results/Procedures Lab Laboratory Tests 09/18/21 05:16 Patient resulted labs reviewed. Assessment/Plan Assessment and Plan Assess & Plan/Chief Complaint Assessment: MRSA bacteremia End-stage kidney disease on dialysis Infected hemodialysis catheter status post removal by Dr. Montoya Hypertensive nephropathy Former smoker Plan: Continue Vancomycin Monitor K+, HCO3, creatinine Repeat blood cultures If (-) cultures replace hemodialysis catheter on Wednesday morning and dialysis on Wednesday If (+) cultures remain on dialysis holiday until wednesday and continue supportive care ANAY OROZCO DO 09/19/21 0515: Subjective Subjective/Events-last exam Pt doing okay No more fever Bicarb 19 Creatinine 2.6 Potassium 3.0 and no volume overload or indication for urgent dialysis Blood culture x2 from yesterday is still positive for MRSA No other pain Spoke with Dr. Knapp Nephrology Spoke with Dr. Montoya Will continue Vancomycin Review of Systems General: Fatigue Objective Exam General Appearance: No Apparent Distress, WD/WN, Chronically ill Respiratory: Normal Breath Sounds, No Accessory Muscle Use Cardiovascular: Regular Rate, Rhythm Neurologic/Psychiatric: Alert, Oriented x3, No Motor/Sensory Deficits, Normal Mood/Affect Assessment/Plan Assessment and Plan Assess & Plan/Chief Complaint Supportive care repeat blood cultures Supervisory-Addendum Brief Verification & Attestation Participated in pt care: history, MDM, physical Personally performed: exam, history, MDM, supervision of care Care discussed with: Medical Student Procedures: n/a Results interpretation: Verified all documentation Verification and Attestation of Medical Student E/M Service A medical student performed and documented this service in my presence. I reviewed and verified all information documented by the medical student and made modifications to such information, when appropriate. I personally performed the physical exam and medical decision making. Anay Orozco Sep 19, 2021,05:14 LEONARDO ALTAMIRANO Sep 18, 2021 13:22 ANAY OROZCO DO Sep 19, 2021 05:15
[2021-09-19] VITALS: BP 146/82
[2021-09-19 05:00] VITALS: BP 156/88
[2021-09-19 06:39] LABS: BASOPHILS # (AUTO) 0.1 10^3/uL (0.0-0.1); BASOPHILS % (AUTO) 1 % (0-10); EOSINOPHILS # (AUTO) 1.5 10^3/uL (0.0-0.3); EOSINOPHILS % (AUTO) 12 % (0-10); HEMATOCRIT 28 % (35-52); HEMOGLOBIN 9.3 g/dL (11.5-16.0); LYMPHOCYTES # (AUTO) 2.6 10^3/uL (1.0-4.0); LYMPHOCYTES % (AUTO) 21 % (12-44); MEAN CORPUSCULAR HEMOGLOBIN 30 pg (25-34); MEAN CORPUSCULAR HGB CONC 33 g/dL (32-36); MEAN CORPUSCULAR VOLUME 89 fL (80-99); MEAN PLATELET VOLUME 9.3 fL (9.0-12.2); MONOCYTES # (AUTO) 1.4 10^3/uL (0.0-1.0); MONOCYTES % (AUTO) 11 % (0-12); NEUTROPHILS # (AUTO) 6.6 10^3/uL (1.8-7.8); NEUTROPHILS % (AUTO) 53 % (42-75); PLATELET COUNT 307 10^3/uL (130-400); WHITE BLOOD COUNT 12.4 10^3/uL (4.3-11.0)
[2021-09-19 06:49] LABS: ALBUMIN 2.7 GM/DL (3.2-4.5)
[2021-09-19 06:52] LABS: TOTAL PROTEIN 5.5 GM/DL (6.4-8.2)
[2021-09-19 06:53] LABS: BILIRUBIN,TOTAL 0.3 MG/DL (0.1-1.0)
[2021-09-19 06:55] LABS: CREATININE SERUM 2.59 MG/DL (0.60-1.30)
--- NOTE | 2021-09-19 07:43 | Progress Note - Surgery ---
JENNIFER AU 09/19/21 0743: Subjective Date Seen by a Provider: Sep 19, 2021 Time Seen by a Provider: 07:21 Subjective/Events-last exam Pt reports that the site where her hemodialysis catheter was removed from is still ichy and slightly tender. Last night she had an episode of chest pain that has since resolved. Reports being restarted on her hypertension medications. Says that she is otherwise doing well. Denies any fevers, chills. Review of Systems General: No Chills, No Night Sweats HEENT: No Head Aches, No Visual Changes Pulmonary: No Dyspnea, No Cough Cardiovascular: No: Chest Pain, Palpitations Gastrointestinal: No: Nausea, Vomiting, Abdominal Pain, Diarrhea, Constipation Genitourinary: No Dysuria, No Frequency Musculoskeletal: No: neck pain, arm pain, back pain, leg pain Neurological: No: Weakness, Numbness Objective Exam Vital Signs Date Time Temp Pulse Resp B/P (MAP) Pulse Ox O2 Delivery O2 Flow Rate FiO2 09/19/21 05:00 37.2 84 16 156/88 (110) 93 Room Air 09/19/21 00:00 36.6 88 20 146/82 (103) 92 Room Air 09/18/21 20:50 37.2 81 18 136/79 (98) 93 Room Air 09/18/21 20:00 Room Air 09/18/21 16:50 36.9 91 20 151/94 (113) 95 Room Air 09/18/21 12:04 36.9 84 18 170/96 (120) 91 Room Air 09/18/21 09:33 93 Room Air 09/18/21 08:00 Room Air 09/18/21 07:58 37.0 95 18 157/86 (109) 91 Room Air I & O 09/19/21 07:00 Intake Total 2720 ml Output Total 1450 ml Balance 1270 ml Capillary Refill : Less Than 3 Seconds General Appearance: No Apparent Distress, WD/WN, Chronically ill HEENT: PERRL/EOMI; No Photophobia Neck: Non Tender, Supple Respiratory: Normal Breath Sounds, No Accessory Muscle Use Cardiovascular: Regular Rate, Rhythm, No Murmur Gastrointestinal: non tender, soft Extremity: Normal Capillary Refill, Non Tender, No Pedal Edema Neurologic/Psychiatric: Alert, Normal Mood/Affect Skin: Normal Color, Warm/Dry, Other (Area over right clavicle where hemodialysis catheter was removed from appears to be healing well. ) Lymphatic: No Adenopathy (cervical) Results Lab Laboratory Tests 09/19/21 06:03: White Blood Count 12.4H, Red Blood Count 3.12L, Hemoglobin 9.3L, Hematocrit 28L, Mean Corpuscular Volume 89, Mean Corpuscular Hemoglobin 30, Mean Corpuscular Hemoglobin Concent 33, Red Cell Distribution Width 14.6H, Platelet Count 307, Mean Platelet Volume 9.3, Immature Granulocyte % (Auto) 3, Neutrophils (%) (Auto) 53, Lymphocytes (%) (Auto) 21, Monocytes (%) (Auto) 11, Eosinophils (%) (Auto) 12H, Basophils (%) (Auto) 1, Neutrophils # (Auto) 6.6, Lymphocytes # (Auto) 2.6, Monocytes # (Auto) 1.4H, Eosinophils # (Auto) 1.5H, Basophils # (Auto) 0.1, Immature Granulocyte # (Auto) 0.3H, Sodium Level 136, Potassium Level 3.0L, Chloride Level 107, Carbon Dioxide Level 19L, Anion Gap 10, Blood Urea Nitrogen 21H, Creatinine 2.59H, Estimat Glomerular Filtration Rate 19, BUN/Creatinine Ratio 8, Glucose Level 85, Calcium Level 8.0L, Corrected Calcium 9.0, Total Bilirubin 0.3, Aspartate Amino Transf (AST/SGOT) 32, Alanine Aminotransferase (ALT/SGPT) 27, Alkaline Phosphatase 158H, Total Protein 5.5L, Albumin 2.7L Microbiology 09/17/21 Blood Culture - Preliminary, Resulted No growth 09/16/21 Gram Stain - Final, Resulted 09/16/21 Anaerobic Culture - Preliminary, Resulted No anaerobes isolated 09/16/21 Wound Culture - Preliminary, Resulted Staphylococcus aureus 09/15/21 Urine Culture - Final, Complete NO GROWTH 09/15/21 Gram Stain - Final, Complete 09/15/21 Wound Culture - Final, Complete Staphylococcus aureus 09/15/21 MRSA Screen - Final, Complete MRSA not isolated Assessment/Plan Assessment/Plan Assessment/Plan Assessment Infected hemodialysis catheter removed MRSA bacteremia End-stage kidney disease on dialysis HTN Plan Continue to monitor dialysis catheter wound. Continue antibiotics to treated presumed MRSA infection Plan is to try to place dialysis catheter today if blood culture comes back negative. If blood culture is positive can wait until wednesday to place according to nephrology. Continue to monitor labs for kidney disease. WILLIS MONTOYA DO 09/19/21 1211: Subjective Time Seen by a Provider: 09:57 Subjective/Events-last exam Pt seen and examined, no changes. States she still has some itching at opening of catheter incision, no drainage. Review of Systems General: No Chills, No Night Sweats Pulmonary: No Dyspnea, No Cough Cardiovascular: No: Chest Pain, Palpitations Gastrointestinal: No: Nausea, Vomiting, Abdominal Pain Objective Exam General Appearance: No Apparent Distress, Chronically ill HEENT: PERRL/EOMI; No Scleral Icterus (L), No Scleral Icterus (R) Respiratory: Lungs Clear, Normal Breath Sounds, No Accessory Muscle Use, No Respiratory Distress Cardiovascular: Regular Rate, Rhythm, No Murmur Gastrointestinal: non tender, soft, no organomegaly Extremity: Normal Capillary Refill, No Pedal Edema Neurologic/Psychiatric: Alert, Oriented x3, Normal Mood/Affect Assessment/Plan Assessment/Plan Assessment/Plan Infected hemodialysis catheter - removed MRSA bacteremia - still positive blood clx End-stage kidney disease on dialysis HTN Plan - Continue to monitor dialysis catheter wound. Continue antibiotics to treated MRSA infection, Plan is to place dialysis catheter Wednesday; too late to place today and then send her for dialysis. One culture was positive from the 09/17 blood draw. Continue to monitor labs for kidney disease. Supervisory-Addendum Brief Verification & Attestation Participated in pt care: history, MDM, physical Personally performed: exam, history, MDM, supervision of care Care discussed with: Medical Student Procedures: n/a Verification and Attestation of Medical Student E/M Service A medical student performed and documented this service. I then reviewed and verified all information documented by the medical student and made modifications to such information, when appropriate. I personally performed a physical exam, medical decision making and then discussed any differences between the notes and made revisions as necessary to create one note. Willis Montoya , 09/19/21 , 12:11 JENNIFER AU Sep 19, 2021 07:43 WILLIS MONTOYA DO Sep 19, 2021 12:11
[2021-09-19 08:00] VITALS: BP 181/95
[2021-09-19] MEDS: amLODIPine 5 MG (NORVASC) TAB PO SCH (08:20)
[2021-09-19] MEDS: SENNA W/DOCUSATE (SENOKOT S) TABLET PO SCH ×2 (09:00→19:40)
--- NOTE | 2021-09-19 10:36 | Cardiology Progress Note ---
Subjective Date Seen by Provider: Sep 19, 2021 Time Seen by Provider: 10:35 Subjective/Events-last exam Patient was seen at bedside, laying down comfortably in bed. No new complaint. Review of Systems General: No Chills, No Night Sweats, No Fatigue, No Malaise, No Appetite, No Other HEENT: No Head Aches, No Visual Changes, No Eye Pain, No Ear Pain, No Dysphasia, No Sinus Congestion, No Post Nasal Drip, No Sore Throat, No Other Pulmonary: No Dyspnea, No Cough, No Pleuritic Chest Pain, No Other Cardiovascular: No: Chest Pain, Palpitations, Orthopnea, Paroxysmal Noc. Dyspnea, Edema, Lt Headedness, Other Objective-Cardiology Exam Last Set of Vital Signs Vital Signs 09/18/21 09/18/21 09/19/21 03:52 04:57 08:00 Temp 36.7 Pulse 81 Resp 18 B/P (MAP) 181/95 (123) Pulse Ox 89 O2 Delivery Room Air O2 Flow Rate 2.00 FiO2 28 I&O Intake and Output 09/19/21 00:00 Intake Total 2770 ml Output Total 1450 ml Balance 1320 ml Intake Oral 2510 ml IV Total 260 ml Output Urine Total 1450 ml # Voids 2 # Bowel Movements 2 General: Alert, Oriented X3, Cooperative HEENT: Atraumatic, PERRLA Neck: Supple, No JVD, No Thyromegaly Lungs: Clear to Auscultation, Normal Air Movement Heart: Regular Rate, Normal S1, Normal S2 Abdomen: Normal Bowel Sounds, Soft Skin: No Rashes, No Significant Lesion Neuro: Cranial Nerves 3-12 NL Psych/Mental Status: Mental Status NL, Mood NL Results Lab Laboratory Tests 09/19/21 06:03 A/P-Cardiology Admission Diagnosis ESRD Infected dialysis catheter Diastolic CHF HTN Assessment/Plan ESRD, on HD, has infected dialysis catheter, gram-positive bacteremia with staph aureus. Receiving antibiotic and managed by primary care physician Diastolic CHF, currently clinically compensated. Echo on 06/18/21: Mild to mod conc LVH, LVEF 50-55%, grade 1 diastolic dysfunction, hypokinesis of apex, mod TR with PA pressure 60 to 65 mmHg Gram-positive bacteremia, staph aureus, presumed MRSA. DAWOOD did not show any vegetation. Started on antibiotic, management per primary care physician Hypertension, history of malignant hypertension, poor control, restarted Coreg and amlodipine yesterday, I will add clonidine 0.1 mg twice daily and evaluate tolerance and response VERO MILLER MD Sep 19, 2021 10:36
[2021-09-19] MEDS: cloNIDine 0.1 MG (CATAPRES) TAB PO SCH ×2 (11:06→19:40)
[2021-09-19 12:00] VITALS: BP 157/87
[2021-09-19] MEDS: ACETAMINOPHEN 325 MG TABLET PO PRN (12:16)
--- NOTE | 2021-09-19 12:53 | Progress Note - Hospitalist ---
LEONARDO ALTAMIRANO 09/19/21 1253: Subjective HPI/CC On Admission Date Seen by Provider: Sep 19, 2021 Time Seen by Provider: 08:10 CC: Hemodialysis catheter infection with bacteremia HPI: This is a 66yoWF clinic Pt of [facility] who just started on dialysis 06/17/21 due to hypertensive nephropathy who presented to the ER for hemodialysis with fever. Hemodialysis catheter was noted to be infected, swab now shows MRSA and bacteremia, blood culture shows MRSA. She was placed on Vancomycin and Zosyn empirically. Dr. Montoya will remove the hemodialysis catheter today and place another one at the end of the week after blood cultures are negative. Dr. Yin has been consulted and will perform echocardiogram. Subjective/Events-last exam Patient is doing well today. States she has had a minor headache that radiates from the base of her traps up her neck and to the top of her head. States she think it may be from the uncomfortable bed or from her blood pressure slowly rising. Patient did have a scare last night with her heart, stating it just didn't feel right, and there was a little bit of tightness that just wouldn't go away. Staff was alerted and an EKG was done around midnight that was negative for any acute pathology. Patient's blood cultures from yesterday were negative, will repeat today and wednesday to confirm negative status and then place permanent port for dialysis on wednesday. Patient's labs remain stable. Patient's blood pressure was 181/95 this morning, cardiology had her take a small dose of her HTN medications. Patient denies Fever, N/V, SOB, edema, dysuria, abdominal pain. Objective Exam Vital Signs Vital Signs Date Time Temp Pulse Resp B/P (MAP) Pulse Ox O2 Delivery O2 Flow Rate FiO2 09/19/21 08:00 36.7 81 18 181/95 (123) 89 Room Air 09/18/21 04:57 2.00 09/18/21 03:52 28 Capillary Refill : Less Than 3 Seconds General Appearance: No Apparent Distress, WD/WN HEENT: Pharynx Normal, Moist Mucous Membranes Neck: Normal Inspection, Supple Respiratory: Chest Non Tender, Lungs Clear, Normal Breath Sounds, No Accessory Muscle Use, No Respiratory Distress Cardiovascular: Regular Rate, Rhythm, No Murmur, Normal Peripheral Pulses Gastrointestinal: Non Tender, Soft Rectal: Deferred Extremity: Non Tender, No Calf Tenderness, No Pedal Edema Neurologic/Psychiatric: Alert, Oriented x3, Normal Mood/Affect Results/Procedures Lab Laboratory Tests 09/19/21 06:03 Patient resulted labs reviewed. Assessment/Plan Assessment and Plan Assess & Plan/Chief Complaint Assessment: MRSA bacteremia End-stage kidney disease on dialysis Infected hemodialysis catheter status post removal by Dr. Montoya Hypertensive nephropathy Former smoker Plan: Continue Vancomycin Monitor K+, HCO3, creatinine Repeat blood cultures today and tomorrow Plan for dialysis catheter place wednesday and discharge to dialysis center. ANAY OROZCO DO 09/20/21 0703: Subjective Subjective/Events-last exam Pt doing well Creatinine 2.59 BUN 21 Potassium 3.0 Bicarbonate 19 Repeat blood cultures done today BP is a little bit elevated and Dr. Yin will address Previous blood cultures done yesterday were negative for MRSA Review of Systems General: Fatigue Objective Exam General Appearance: No Apparent Distress, WD/WN, Chronically ill Respiratory: Lungs Clear, Normal Breath Sounds Cardiovascular: Regular Rate, Rhythm Neurologic/Psychiatric: Alert, Oriented x3 Assessment/Plan Assessment and Plan Assess & Plan/Chief Complaint Continue vancomycin Port placement Wednesday Supervisory-Addendum Brief Verification & Attestation Participated in pt care: history, MDM, physical Personally performed: exam, history, MDM, supervision of care Care discussed with: Medical Student Procedures: n/a Results interpretation: Verified all documentation Verification and Attestation of Medical Student E/M Service A medical student performed and documented this service in my presence. I reviewed and verified all information documented by the medical student and made modifications to such information, when appropriate. I personally performed the physical exam and medical decision making. Anay Orozco Sep 20, 2021,07:01 LEONARDO ALTAMIRANO Sep 19, 2021 12:53 ANAY OROZCO DO Sep 20, 2021 07:03
[2021-09-19] MEDS: HYDROcodone/APAP 5 MG/325 MG (LORTAB) TAB PO PRN (15:31)
[2021-09-19 16:03] VITALS: BP 162/89
[2021-09-19 19:41] VITALS: BP 139/85
[2021-09-19] MEDS: RT-ALBUTEROL/IPRATROPIUM 3 ML (DUONEB) VIAL INH SCH (22:00)
[2021-09-20] VITALS (7 sets, daily range): BP systolic 118–148; BP diastolic 74–86
[2021-09-20 06:38] LABS: BASOPHILS # (AUTO) 0.1 10^3/uL (0.0-0.1); BASOPHILS % (AUTO) 1 % (0-10); EOSINOPHILS # (AUTO) 1.4 10^3/uL (0.0-0.3); EOSINOPHILS % (AUTO) 13 % (0-10); HEMATOCRIT 29 % (35-52); HEMOGLOBIN 9.3 g/dL (11.5-16.0); LYMPHOCYTES # (AUTO) 2.3 10^3/uL (1.0-4.0); LYMPHOCYTES % (AUTO) 21 % (12-44); MEAN CORPUSCULAR HEMOGLOBIN 30 pg (25-34); MEAN CORPUSCULAR HGB CONC 32 g/dL (32-36); MEAN CORPUSCULAR VOLUME 93 fL (80-99); MEAN PLATELET VOLUME 9.3 fL (9.0-12.2); MONOCYTES # (AUTO) 1.1 10^3/uL (0.0-1.0); MONOCYTES % (AUTO) 11 % (0-12); NEUTROPHILS # (AUTO) 5.6 10^3/uL (1.8-7.8); NEUTROPHILS % (AUTO) 52 % (42-75); PLATELET COUNT 354 10^3/uL (130-400); WHITE BLOOD COUNT 10.8 10^3/uL (4.3-11.0)
[2021-09-20] MEDS: RT-ALBUTEROL/IPRATROPIUM 3 ML (DUONEB) VIAL INH SCH ×2 (07:18→21:25)
[2021-09-20 07:34] LABS: ALBUMIN 2.7 GM/DL (3.2-4.5); BILIRUBIN,TOTAL 0.3 MG/DL (0.1-1.0); CALCIUM 8.1 MG/DL (8.5-10.1); CREATININE SERUM 2.61 MG/DL (0.60-1.30); POTASSIUM 3.2 MMOL/L (3.6-5.0); TOTAL PROTEIN 5.6 GM/DL (6.4-8.2)
--- NOTE | 2021-09-20 07:52 | Progress Note - Surgery ---
JENNIFER AU 09/20/21 0752: Subjective Date Seen by a Provider: Sep 20, 2021 Time Seen by a Provider: 07:12 Subjective/Events-last exam Pt reports that she has been doing well. Denies having any pain around the site where her dialysis catheter was removed from. Did report having some slight itchiness in the area. Denies any fever, chills, or other concerns when asked. Review of Systems General: No Chills, No Night Sweats HEENT: No Head Aches, No Visual Changes Pulmonary: No Dyspnea, No Cough Cardiovascular: No: Chest Pain, Palpitations Gastrointestinal: No: Nausea, Vomiting, Abdominal Pain, Diarrhea, Constipation Genitourinary: No Dysuria, No Frequency Musculoskeletal: No: neck pain, shoulder pain, arm pain, back pain, leg pain Neurological: No: Weakness, Numbness Objective Exam Vital Signs Date Time Temp Pulse Resp B/P (MAP) Pulse Ox O2 Delivery O2 Flow Rate FiO2 09/20/21 07:41 36.9 77 18 148/86 (106) 90 Room Air 09/20/21 07:18 Room Air 09/20/21 04:00 36.8 70 18 136/78 (97) 93 Room Air 09/20/21 00:00 37.0 67 18 139/84 (102) 94 Room Air 09/19/21 19:41 36.5 73 18 139/85 (103) 90 Room Air 09/19/21 19:40 Room Air 09/19/21 16:03 36.6 80 18 162/89 (113) 90 Room Air 09/19/21 12:00 36.3 72 16 157/87 (110) 88 Room Air 09/19/21 08:00 Room Air 09/19/21 08:00 36.7 81 18 181/95 (123) 89 Room Air I & O 09/20/21 07:00 Intake Total 1330 ml Output Total 2950 ml Balance -1620 ml Capillary Refill : Less Than 3 Seconds General Appearance: No Apparent Distress, WD/WN, Chronically ill HEENT: PERRL/EOMI; No Photophobia Neck: Non Tender, Supple Respiratory: Lungs Clear, Normal Breath Sounds, No Accessory Muscle Use, No Respiratory Distress Cardiovascular: Regular Rate, Rhythm, No Murmur, Normal Peripheral Pulses Gastrointestinal: non tender, soft Extremity: Non Tender, No Calf Tenderness, No Pedal Edema Neurologic/Psychiatric: Alert, Oriented x3, Normal Mood/Affect Skin: Normal Color, Warm/Dry, Other (Area over right clavicle where hemodialysis catheter was removed from appears to be healing well. ) Lymphatic: No Adenopathy (cervical) Results Lab Laboratory Tests 09/20/21 05:50: Sodium Level 138, Potassium Level 3.2L, Chloride Level 108H, Carbon Dioxide Level 18L, Anion Gap 12, Blood Urea Nitrogen 20H, Creatinine 2.61H, Estimat Glomerular Filtration Rate 18, BUN/Creatinine Ratio 8, Glucose Level 84, Calcium Level 8.1L, Corrected Calcium 9.1, Total Bilirubin 0.3, Aspartate Amino Transf (AST/SGOT) 32, Alanine Aminotransferase (ALT/SGPT) 27, Alkaline Phosphatase 140H , Total Protein 5.6L, Albumin 2.7L 09/20/21 06:10: White Blood Count 10.8, Red Blood Count 3.15L, Hemoglobin 9.3L, Hematocrit 29L, Mean Corpuscular Volume 93, Mean Corpuscular Hemoglobin 30, Mean Corpuscular Hemoglobin Concent 32, Red Cell Distribution Width 15.0H, Platelet Count 354, Mean Platelet Volume 9.3, Immature Granulocyte % (Auto) 3, Neutrophils (%) (Auto) 52, Lymphocytes (%) (Auto) 21, Monocytes (%) (Auto) 11, Eosinophils (%) (Auto) 13H, Basophils (%) (Auto) 1, Neutrophils # (Auto) 5.6, Lymphocytes # (Auto) 2.3, Monocytes # (Auto) 1.1H, Eosinophils # (Auto) 1.4H, Basophils # (Auto) 0.1, Immature Granulocyte # (Auto) 0.4H, Vancomycin Level Trough 18.8 Microbiology 09/18/21 Blood Culture - Preliminary, Resulted No growth 09/16/21 Gram Stain - Final, Resulted 09/16/21 Anaerobic Culture - Preliminary, Resulted No anaerobes isolated 09/16/21 Wound Culture - Final, Resulted Staphylococcus aureus 09/15/21 Urine Culture - Final, Complete NO GROWTH 09/15/21 Gram Stain - Final, Complete 09/15/21 Wound Culture - Final, Complete Staphylococcus aureus 09/15/21 MRSA Screen - Final, Complete MRSA not isolated Assessment/Plan Assessment/Plan Assessment/Plan Assessment Infected hemodialysis catheter - removed MRSA bacteremia End-stage kidney disease on dialysis HTN Plan Continue to monitor dialysis catheter wound. Continue antibiotics to treat MRSA infection, Plan is to place dialysis catheter Wednesday and then send her for dialysis. One culture was positive from the 09/17 blood draw. Waiting for final results from 09/18 blood draw. Continue to monitor labs for kidney disease. WILLIS MONTOYA DO 09/20/21 1349: Subjective Time Seen by a Provider: 08:33 Subjective/Events-last exam Pt seen and examined, no new complaints. Review of Systems General: No Chills, No Night Sweats HEENT: No Head Aches, No Visual Changes Pulmonary: No Dyspnea, No Cough Cardiovascular: No: Chest Pain, Palpitations Gastrointestinal: No: Nausea, Vomiting, Abdominal Pain Objective Exam General Appearance: No Apparent Distress, Chronically ill HEENT: PERRL/EOMI Respiratory: Lungs Clear, Normal Breath Sounds, No Accessory Muscle Use, No Respiratory Distress Cardiovascular: Regular Rate, Rhythm, No Murmur Gastrointestinal: non tender, soft Extremity: No Calf Tenderness, No Pedal Edema Neurologic/Psychiatric: Alert, Oriented x3 Skin: Other (Area over right clavicle where hemodialysis catheter was removed from appears to be healing well. ) Assessment/Plan Assessment/Plan Assessment/Plan Infected hemodialysis catheter - removed MRSA bacteremia End-stage kidney disease on dialysis HTN Plan Continue to monitor dialysis catheter wound. Antibiotics to treat MRSA infection, Plan is to place dialysis catheter Wednesday and then send her for dialysis. One culture was positive from the 09/17 blood draw. Results from 09/18 blood draw, no growth. Continue to monitor labs for kidney disease. Supervisory-Addendum Brief Verification & Attestation Participated in pt care: history, MDM, physical Personally performed: exam, history, MDM, supervision of care Care discussed with: Medical Student Procedures: n/a Verification and Attestation of Medical Student E/M Service A medical student performed and documented this service. I then reviewed and verified all information documented by the medical student and made modifications to such information, when appropriate. I personally performed a physical exam, medical decision making and then discussed any differences between the notes and made revisions as necessary to create one note. Willis Montoya , 09/20/21 , 13:48 JENNIFER AU Sep 20, 2021 07:52 WILLIS MONTOYA DO Sep 20, 2021 13:49
[2021-09-20] MEDS: amLODIPine 5 MG (NORVASC) TAB PO SCH (08:28)
[2021-09-20] MEDS: cloNIDine 0.1 MG (CATAPRES) TAB PO SCH ×2 (08:28→19:37)
[2021-09-20] MEDS ORDERED: TROUGH ORDER-PHARMACY XX ONE (09:00)
--- NOTE | 2021-09-20 09:10 | Progress Note - Hospitalist ---
Subjective HPI/CC On Admission Date Seen by Provider: Sep 20, 2021 Time Seen by Provider: 11:00 CC: Hemodialysis catheter infection with bacteremia HPI: This is a 66yoWF clinic Pt of [facility] who just started on dialysis 06/17/21 due to hypertensive nephropathy who presented to the ER for hemodialysis with fever. Hemodialysis catheter was noted to be infected, swab now shows MRSA and bacteremia, blood culture shows MRSA. She was placed on Vancomycin and Zosyn empirically. Dr. Montoya will remove the hemodialysis catheter today and place another one at the end of the week after blood cultures are negative. Dr. Yin has been consulted and will perform echocardiogram. Subjective/Events-last exam Patient doing well No fever White count is normal Potassium 3.2 Creatinine 2.6 and stable Hemoglobin 9.3 No acidosis or volume overload to suggest emergent dialysis Review of Systems General: Fatigue, Malaise Objective Exam Vital Signs Vital Signs Date Time Temp Pulse Resp B/P (MAP) Pulse Ox O2 Delivery O2 Flow Rate FiO2 09/20/21 23:00 36.9 75 18 118/74 (89) 91 Room Air 09/20/21 18:52 2.00 09/18/21 03:52 28 Capillary Refill : Less Than 3 Seconds General Appearance: No Apparent Distress, WD/WN, Chronically ill Respiratory: Lungs Clear, Normal Breath Sounds Cardiovascular: Regular Rate, Rhythm Neurologic/Psychiatric: Alert, Oriented x3, No Motor/Sensory Deficits, Normal Mood/Affect Results/Procedures Lab Patient resulted labs reviewed. Assessment/Plan Assessment and Plan Assess & Plan/Chief Complaint Assessment: MRSA bacteremia End-stage kidney disease on dialysis Infected hemodialysis catheter status post removal by Dr. Montoya Hypertensive nephropathy Former smoker Plan: Continue Vancomycin Monitor K+, HCO3, creatinine Repeat blood cultures today and tomorrow Plan for dialysis catheter place wednesday and discharge to dialysis center. 09/20/2021: Repeated blood cultures today Monitor creatinine DAO OROZCO DO Sep 20, 2021 09:10
[2021-09-20] MEDS: SENNA W/DOCUSATE (SENOKOT S) TABLET PO SCH ×2 (09:55→19:37)
[2021-09-20] MEDS: VANCOMYCIN 1 GM/NS 250 ML IVPB IV SCH ×2 (11:57)
[2021-09-20] MEDS: ACETAMINOPHEN 325 MG TABLET PO PRN (12:08)
--- NOTE | 2021-09-20 14:07 | Progress Note - Cardiology ---
Cardiology SOAP Progress Note Subjective: No cp or palp or syncope Gen malaise and weakness present No n/v/d No swelling Objective: I&O/Vital Signs 09/20/21 09/20/21 09/20/21 09/20/21 04:00 07:18 07:41 07:48 Temp 36.8 36.9 Pulse 70 77 Resp 18 18 B/P (MAP) 136/78 (97) 148/86 (106) Pulse Ox 93 90 O2 Delivery Room Air Room Air Room Air Room Air 09/20/21 11:34 Temp 36.3 Pulse 60 Resp 18 B/P (MAP) 131/80 (97) Pulse Ox 90 O2 Delivery Room Air 09/20/21 00:00 Intake Total 930 ml Output Total 1800 ml Balance -870 ml Constitutional: AAO x 3, well-developed, well-nourished Respiratory: No accessory muscle use; other (fair to good bilateral air entry) Cardiovascular: regular rate-rhythm, S1 and S2, systolic murmur (soft LUIS ALBERTO at card base) Gastrointestional: No tender; soft; No guarding, No rebound; audible bowel sounds Extremities: No clubbing, No cyanosis, No significant edema Neurologic/Psychiatric: oriented x 3, other (moves all limbs equally) Skin: warm/dry; No rash on exposed areas, No ulcerations on exposed areas Results/Procedures: Labs Laboratory Tests 09/20/21 05:50: Sodium Level 138, Potassium Level 3.2L, Chloride Level 108H, Carbon Dioxide Level 18L, Anion Gap 12, Blood Urea Nitrogen 20H, Creatinine 2.61H, Estimat Glomerular Filtration Rate 18, BUN/Creatinine Ratio 8, Glucose Level 84, Calcium Level 8.1L, Corrected Calcium 9.1, Total Bilirubin 0.3, Aspartate Amino Transf (AST/SGOT) 32, Alanine Aminotransferase (ALT/SGPT) 27, Alkaline Phosphatase 140H , Total Protein 5.6L, Albumin 2.7L 09/20/21 06:10: White Blood Count 10.8, Red Blood Count 3.15L, Hemoglobin 9.3L, Hematocrit 29L, Mean Corpuscular Volume 93, Mean Corpuscular Hemoglobin 30, Mean Corpuscular Hemoglobin Concent 32, Red Cell Distribution Width 15.0H, Platelet Count 354, Mean Platelet Volume 9.3, Immature Granulocyte % (Auto) 3, Neutrophils (%) (Auto) 52, Lymphocytes (%) (Auto) 21, Monocytes (%) (Auto) 11, Eosinophils (%) (Auto) 13H, Basophils (%) (Auto) 1, Neutrophils # (Auto) 5.6, Lymphocytes # (Auto) 2.3, Monocytes # (Auto) 1.1H, Eosinophils # (Auto) 1.4H, Basophils # (Auto) 0.1, Immature Granulocyte # (Auto) 0.4H, Vancomycin Level Trough 18.8 Microbiology 09/18/21 Blood Culture - Preliminary, Resulted No growth 09/16/21 Gram Stain - Final, Resulted 09/16/21 Anaerobic Culture - Preliminary, Resulted No anaerobes isolated 09/16/21 Wound Culture - Final, Resulted Staphylococcus aureus 09/15/21 Urine Culture - Final, Complete NO GROWTH 09/15/21 Gram Stain - Final, Complete 09/15/21 Wound Culture - Final, Complete Staphylococcus aureus 09/15/21 MRSA Screen - Final, Complete MRSA not isolated Laboratory Tests 09/19/21 06:03 09/20/21 05:50 09/20/21 06:10 A/P: Assessment: ESRD, on HD, has infected dialysis catheter, gram-positive bacteremia with staph aureus - managed by the [facility] H/o diastolic CHF, currently compensated - Echo on 06/18/21: Mild to mod conc LVH, LVEF 50-55%, grade 1 diastolic dysfunction, hypokinesis of apex, mod TR with PA pressure 60 to 65 mmHg - [place] on 09/17/21: no vegetation, mild MR, LVEF 60 Hypertension, currently controlled Plan: * I interviewed and examined the patient and reviewed her records * Continue current antihypertensive regimen * Management of ESRD and bacteremia is with [facility]ERYL [facility]ro [facility] Sep 20, 2021 14:07
[2021-09-21 07:13] LABS: BASOPHILS % (AUTO) 0 % (0-10); EOSINOPHILS # (AUTO) 1.1 10^3/uL (0.0-0.3); EOSINOPHILS % (AUTO) 11 % (0-10); HEMATOCRIT 27 % (35-52); HEMOGLOBIN 9.1 g/dL (11.5-16.0); LYMPHOCYTES # (AUTO) 1.9 10^3/uL (1.0-4.0); LYMPHOCYTES % (AUTO) 18 % (12-44); MEAN CORPUSCULAR HEMOGLOBIN 30 pg (25-34); MEAN CORPUSCULAR HGB CONC 33 g/dL (32-36); MEAN CORPUSCULAR VOLUME 90 fL (80-99); MEAN PLATELET VOLUME 9.2 fL (9.0-12.2); MONOCYTES # (AUTO) 1.3 10^3/uL (0.0-1.0); MONOCYTES % (AUTO) 13 % (0-12); NEUTROPHILS # (AUTO) 5.5 10^3/uL (1.8-7.8); NEUTROPHILS % (AUTO) 54 % (42-75); PLATELET COUNT 374 10^3/uL (130-400); WHITE BLOOD COUNT 10.1 10^3/uL (4.3-11.0)
[2021-09-21 07:38] LABS: ALBUMIN 2.6 GM/DL (3.2-4.5); BILIRUBIN,TOTAL 0.3 MG/DL (0.1-1.0); CREATININE SERUM 2.59 MG/DL (0.60-1.30); POTASSIUM 3.3 MMOL/L (3.6-5.0); TOTAL PROTEIN 5.5 GM/DL (6.4-8.2)
[2021-09-21 07:51] VITALS: BP 126/79
[2021-09-21] MEDS: amLODIPine 5 MG (NORVASC) TAB PO SCH (08:10)
[2021-09-21] MEDS: cloNIDine 0.1 MG (CATAPRES) TAB PO SCH ×2 (08:10→19:25)
--- NOTE | 2021-09-21 09:09 | Progress Note - Surgery ---
JENNIFER AU 09/21/21 0909: Subjective Date Seen by a Provider: Sep 21, 2021 Time Seen by a Provider: 08:21 Subjective/Events-last exam Pt reports that she is doing well this morning. Not having any pain over the area where here dialysis catheter was removed from but does state that the area is dry and itchy. Denies any fever or chills. Review of Systems General: No Chills, No Night Sweats HEENT: No Head Aches, No Visual Changes Pulmonary: No Dyspnea, No Cough Cardiovascular: No: Chest Pain, Palpitations Gastrointestinal: No: Nausea, Vomiting, Abdominal Pain Genitourinary: No Dysuria, No Frequency Musculoskeletal: No: neck pain, shoulder pain, back pain Neurological: No: Weakness, Numbness Objective Exam Vital Signs Date Time Temp Pulse Resp B/P (MAP) Pulse Ox O2 Delivery O2 Flow Rate FiO2 09/21/21 08:46 93 Room Air 09/21/21 07:51 37.1 79 18 126/79 (95) 89 Room Air 09/21/21 07:09 Room Air 09/20/21 23:00 36.9 75 18 118/74 (89) 91 Room Air 09/20/21 19:18 36.7 74 18 125/78 (94) 92 Room Air 09/20/21 19:10 Room Air 09/20/21 18:52 92 Room Air 2.00 09/20/21 16:15 36.4 69 18 128/84 (99) 93 Room Air 09/20/21 11:34 36.3 60 18 131/80 (97) 90 Room Air I & O 09/21/21 07:00 Intake Total 2080 ml Output Total 2450 ml Balance -370 ml Capillary Refill : Less Than 3 Seconds General Appearance: No Apparent Distress, WD/WN, Chronically ill HEENT: PERRL/EOMI; No Photophobia Neck: Non Tender, Supple Respiratory: Lungs Clear, Normal Breath Sounds, No Accessory Muscle Use Cardiovascular: Regular Rate, Rhythm, Normal Peripheral Pulses Gastrointestinal: non tender, soft, no organomegaly Extremity: No Calf Tenderness, No Pedal Edema Neurologic/Psychiatric: Alert, Normal Mood/Affect Skin: Other (Area over right clavicle where hemodialysis catheter was removed from appears to be healing well. ) Lymphatic: No Adenopathy (cervical) Results Lab Laboratory Tests 09/21/21 06:19: White Blood Count 10.1, Red Blood Count 3.04L, Hemoglobin 9.1L, Hematocrit 27L, Mean Corpuscular Volume 90, Mean Corpuscular Hemoglobin 30, Mean Corpuscular Hemoglobin Concent 33, Red Cell Distribution Width 15.1H, Platelet Count 374, Mean Platelet Volume 9.2, Immature Granulocyte % (Auto) 3, Neutrophils (%) (Auto) 54, Lymphocytes (%) (Auto) 18, Monocytes (%) (Auto) 13H, Eosinophils (%) (Auto) 11H, Basophils (%) (Auto) 0, Neutrophils # (Auto) 5.5, Lymphocytes # (Auto) 1.9, Monocytes # (Auto) 1.3H, Eosinophils # (Auto) 1.1H, Basophils # (Auto) 0.0, Immature Granulocyte # (Auto) 0.3H, Sodium Level 137, Potassium Level 3.3L, Chloride Level 108H, Carbon Dioxide Level 19L, Anion Gap 10, Blood Urea Nitrogen 19H, Creatinine 2.59H, Estimat Glomerular Filtration Rate 19, BUN/Creatinine Ratio 7, Glucose Level 84, Calcium Level 8.0L, Corrected Calcium 9.1, Total Bilirubin 0.3, Aspartate Amino Transf (AST/SGOT) 25, Alanine Aminotransferase (ALT/SGPT) 23, Alkaline Phosphatase 123, Total Protein 5.5L, Albumin 2.6L Microbiology 09/19/21 Blood Culture - Preliminary, Resulted No growth 09/16/21 Gram Stain - Final, Resulted 09/16/21 Anaerobic Culture - Preliminary, Resulted No anaerobes isolated 09/16/21 Wound Culture - Final, Resulted Staphylococcus aureus 09/15/21 Urine Culture - Final, Complete NO GROWTH 09/15/21 Gram Stain - Final, Complete 09/15/21 Wound Culture - Final, Complete Staphylococcus aureus 09/15/21 MRSA Screen - Final, Complete MRSA not isolated Assessment/Plan Assessment/Plan Assessment/Plan Infected hemodialysis catheter - removed MRSA bacteremia End-stage kidney disease on dialysis HTN Plan Continue to monitor dialysis catheter wound. Antibiotics to treat MRSA infection, Plan is to place dialysis catheter Wednesday and then send her for dialysis. One culture was positive from the 09/17 blood draw. Results from 09/18 and 09/19 blood draw, no growth. Continue to monitor labs for kidney disease. WILLIS MONTOYA DO 09/21/21 1651: Subjective Time Seen by a Provider: 12:46 Subjective/Events-last exam Pt seen and examined, no complaints. Ready for dialysis catheter placement. Review of Systems General: No Chills, No Night Sweats Pulmonary: No Dyspnea, No Cough Cardiovascular: No: Chest Pain, Palpitations Gastrointestinal: No: Nausea, Vomiting, Abdominal Pain Objective Exam General Appearance: No Apparent Distress, Chronically ill HEENT: PERRL/EOMI, Moist Mucous Membranes Respiratory: Lungs Clear, Normal Breath Sounds, No Accessory Muscle Use, No Respiratory Distress Cardiovascular: Regular Rate, Rhythm, No Murmur Gastrointestinal: non tender, no organomegaly Skin: Other (Area over right clavicle where hemodialysis catheter was removed from appears to be healing well. ) Assessment/Plan Assessment/Plan Assessment/Plan End-stage kidney disease on dialysis Infected hemodialysis catheter - removed MRSA bacteremia HTN Plan Plan is to place dialysis catheter Wednesday and then send her for dialysis; will get consent and make NPO after midnight. Culture results from 09/18 and 09/19 blood draw, no growth. Continue to monitor labs for kidney disease. Supervisory-Addendum Brief Verification & Attestation Participated in pt care: history, MDM, physical Personally performed: exam, history, MDM, supervision of care Care discussed with: Medical Student Procedures: n/a Verification and Attestation of Medical Student E/M Service A medical student performed and documented this service. I then reviewed and verified all information documented by the medical student and made modifications to such information, when appropriate. I personally performed a physical exam, medical decision making and then discussed any differences between the notes and made revisions as necessary to create one note. Willis Montoya , 09/21/21 , 16:51 JENNIFER AU Sep 21, 2021 09:09 WILLIS MONTOYA DO Sep 21, 2021 16:51
[2021-09-21] MEDS: SENNA W/DOCUSATE (SENOKOT S) TABLET PO SCH ×2 (09:42→19:25)
--- NOTE | 2021-09-21 12:12 | Progress Note - Hospitalist ---
Subjective HPI/CC On Admission Date Seen by Provider: Sep 21, 2021 Time Seen by Provider: 11:00 CC: Hemodialysis catheter infection with bacteremia HPI: This is a 66yoWF clinic Pt of [facility] who just started on dialysis 06/17/21 due to hypertensive nephropathy who presented to the ER for hemodialysis with fever. Hemodialysis catheter was noted to be infected, swab now shows MRSA and bacteremia, blood culture shows MRSA. She was placed on Vancomycin and Zosyn empirically. Dr. Montoya will remove the hemodialysis catheter today and place another one at the end of the week after blood cultures are negative. Dr. Yin has been consulted and will perform echocardiogram. Subjective/Events-last exam Patient doing well No other concerns Creatinine and potassium and bicarb stable Review of Systems General: Fatigue Objective Exam Vital Signs Vital Signs Date Time Temp Pulse Resp B/P (MAP) Pulse Ox O2 Delivery O2 Flow Rate FiO2 09/21/21 16:10 36.9 95 20 114/74 (87) 100 Room Air 09/20/21 18:52 2.00 09/18/21 03:52 28 Capillary Refill : Less Than 3 Seconds General Appearance: No Apparent Distress, WD/WN, Chronically ill Respiratory: Lungs Clear, Normal Breath Sounds Cardiovascular: Regular Rate, Rhythm Neurologic/Psychiatric: Alert, Oriented x3, No Motor/Sensory Deficits, Normal Mood/Affect Results/Procedures Lab Laboratory Tests 09/21/21 06:19 Patient resulted labs reviewed. Assessment/Plan Assessment and Plan Assess & Plan/Chief Complaint Assessment: MRSA bacteremia End-stage kidney disease on dialysis Infected hemodialysis catheter status post removal by Dr. Montoya Hypertensive nephropathy Former smoker Plan: Continue Vancomycin Monitor K+, HCO3, creatinine Repeat blood cultures today and tomorrow Plan for dialysis catheter place wednesday and discharge to dialysis center. 09/20/2021: Repeated blood cultures today Monitor creatinine 09/21/2021: Supportive care DAO OROZCO DO Sep 21, 2021 12:12
[2021-09-21] MEDS ORDERED: VANC1PIG IV (12:13)
[2021-09-21] MEDS ORDERED: CLN.1T PO (12:13)
[2021-09-21 12:32] VITALS: BP 128/82
--- NOTE | 2021-09-21 14:18 | Progress Note - Cardiology ---
Cardiology SOAP Progress Note Subjective: No cp or palp or syncope or shortness of breath No n/v/d Gen weakness present Objective: I&O/Vital Signs 09/21/21 09/21/21 09/21/21 09/21/21 07:09 07:51 08:46 12:32 Temp 37.1 37.6 Pulse 79 71 Resp 18 20 B/P (MAP) 126/79 (95) 128/82 (97) Pulse Ox 89 93 90 O2 Delivery Room Air Room Air Room Air Room Air 09/21/21 00:00 Intake Total 1780 ml Output Total 1350 ml Balance 430 ml Constitutional: AAO x 3, well-developed, well-nourished Respiratory: No accessory muscle use; other (fair to good bilateral air entry) Cardiovascular: regular rate-rhythm, S1 and S2, systolic murmur (soft LUIS ALBERTO at ca rd base) Gastrointestional: No tender; soft; No guarding, No rebound; audible bowel sounds Extremities: No clubbing, No cyanosis, No significant edema Neurologic/Psychiatric: oriented x 3, other (moves all limbs equally) Skin: warm/dry; No rash on exposed areas, No ulcerations on exposed areas Results/Procedures: Labs Laboratory Tests 09/21/21 06:19: White Blood Count 10.1, Red Blood Count 3.04L, Hemoglobin 9.1L, Hematocrit 27L, Mean Corpuscular Volume 90, Mean Corpuscular Hemoglobin 30, Mean Corpuscular Hemoglobin Concent 33, Red Cell Distribution Width 15.1H, Platelet Count 374, Mean Platelet Volume 9.2, Immature Granulocyte % (Auto) 3, Neutrophils (%) (Auto) 54, Lymphocytes (%) (Auto) 18, Monocytes (%) (Auto) 13H, Eosinophils (%) (Auto) 11H, Basophils (%) (Auto) 0, Neutrophils # (Auto) 5.5, Lymphocytes # (Auto) 1.9, Monocytes # (Auto) 1.3H, Eosinophils # (Auto) 1.1H, Basophils # (Auto) 0.0, Immature Granulocyte # (Auto) 0.3H, Sodium Level 137, Potassium Level 3.3L, Chloride Level 108H, Carbon Dioxide Level 19L, Anion Gap 10, Blood Urea Nitrogen 19H, Creatinine 2.59H, Estimat Glomerular Filtration Rate 19, BUN/Creatinine Ratio 7, Glucose Level 84, Calcium Level 8.0L, Corrected Calcium 9.1, Total Bilirubin 0.3, Aspartate Amino Transf (AST/SGOT) 25, Alanine Aminotransferase (ALT/SGPT) 23, Alkaline Phosphatase 123, Total Protein 5.5L, Albumin 2.6L Microbiology 09/19/21 Blood Culture - Preliminary, Resulted No growth 09/16/21 Gram Stain - Final, Resulted 09/16/21 Anaerobic Culture - Preliminary, Resulted No anaerobes isolated 09/16/21 Wound Culture - Final, Resulted Staphylococcus aureus 09/15/21 Urine Culture - Final, Complete NO GROWTH 09/15/21 Gram Stain - Final, Complete 09/15/21 Wound Culture - Final, Complete Staphylococcus aureus 09/15/21 MRSA Screen - Final, Complete MRSA not isolated Laboratory Tests 09/20/21 05:50 09/20/21 06:10 09/21/21 06:19 A/P: Assessment: ESRD, on HD, has infected dialysis catheter, gram-positive bacteremia with staph aureus - managed by the Med svce H/o diastolic CHF, currently compensated - Echo on 06/18/21: Mild to mod conc LVH, LVEF 50-55%, grade 1 diastolic dysfunction, hypokinesis of apex, mod TR with PA pressure 60 to 65 mmHg - DAWOOD on 09/17/21: no vegetation, mild MR, LVEF 60 Hypertension, currently controlled Plan: * Continue current antihypertensive regimen * Management of ESRD and bacteremia is with the Med svce * K chronically low and stable. Dr Lopez managing MERYL LAGUNAS MD [facility] CCDS Sep 21, 2021 14:18
[2021-09-21 16:10] VITALS: BP 114/74
[2021-09-21 19:25] VITALS: BP 119/75
[2021-09-21] MEDS: RT-ALBUTEROL/IPRATROPIUM 3 ML (DUONEB) VIAL INH SCH (21:17)
[2021-09-21 23:02] VITALS: BP 121/71
[2021-09-22 06:00] LABS: BASOPHILS % (AUTO) 0 % (0-10); EOSINOPHILS # (AUTO) 1.2 10^3/uL (0.0-0.3); EOSINOPHILS % (AUTO) 10 % (0-10); HEMATOCRIT 27 % (35-52); HEMOGLOBIN 8.9 g/dL (11.5-16.0); LYMPHOCYTES # (AUTO) 2.3 10^3/uL (1.0-4.0); LYMPHOCYTES % (AUTO) 21 % (12-44); MEAN CORPUSCULAR HEMOGLOBIN 30 pg (25-34); MEAN CORPUSCULAR HGB CONC 33 g/dL (32-36); MEAN CORPUSCULAR VOLUME 90 fL (80-99); MONOCYTES # (AUTO) 1.4 10^3/uL (0.0-1.0); MONOCYTES % (AUTO) 13 % (0-12); NEUTROPHILS % (AUTO) 54 % (42-75); PLATELET COUNT 368 10^3/uL (130-400); WHITE BLOOD COUNT 11.1 10^3/uL (4.3-11.0)
[2021-09-22 06:20] LABS: ALBUMIN 2.6 GM/DL (3.2-4.5)
[2021-09-22 06:21] LABS: POTASSIUM 3.5 MMOL/L (3.6-5.0)
[2021-09-22 06:22] LABS: CALCIUM 7.9 MG/DL (8.5-10.1)
[2021-09-22 06:23] LABS: TOTAL PROTEIN 5.5 GM/DL (6.4-8.2)
[2021-09-22 06:25] LABS: BILIRUBIN,TOTAL 0.3 MG/DL (0.1-1.0)
[2021-09-22 06:27] LABS: CREATININE SERUM 2.86 MG/DL (0.60-1.30)
--- NOTE | 2021-09-22 07:17 | Progress Note - Surgery ---
Subjective Date Seen by a Provider: Sep 22, 2021 Time Seen by a Provider: 06:48 Subjective/Events-last exam Pt reports that she is doing well this morning. She is hoping that she can get the dialysis catheter placed today. States the the site where the infected catheter was removed from is sore and itchy but otherwise is healing well. Denies any other concerns when asked. Review of Systems General: No Chills, No Night Sweats HEENT: No Head Aches, No Visual Changes Pulmonary: No Dyspnea, No Cough Cardiovascular: No: Chest Pain, Palpitations Gastrointestinal: No: Nausea, Vomiting, Abdominal Pain Genitourinary: No Dysuria, No Frequency Musculoskeletal: No: neck pain, arm pain, back pain, leg pain Neurological: No: Weakness, Numbness Objective Exam Vital Signs Date Time Temp Pulse Resp B/P (MAP) Pulse Ox O2 Delivery O2 Flow Rate FiO2 09/21/21 23:02 37.6 79 18 121/71 (88) 98 Nasal Cannula 2.00 09/21/21 19:25 Room Air 09/21/21 19:25 119/75 (90) 09/21/21 16:10 36.9 95 20 114/74 (87) 100 Room Air 09/21/21 12:32 37.6 71 20 128/82 (97) 90 Room Air 09/21/21 08:46 93 Room Air 09/21/21 07:51 37.1 79 18 126/79 (95) 89 Room Air I & O 09/22/21 07:00 Intake Total 1545 ml Output Total 2250 ml Balance -705 ml Capillary Refill : Less Than 3 Seconds General Appearance: No Apparent Distress, Chronically ill HEENT: PERRL/EOMI; No Photophobia Neck: Non Tender, Supple Respiratory: Lungs Clear, Normal Breath Sounds, No Accessory Muscle Use, No Respiratory Distress Cardiovascular: Regular Rate, Rhythm, No Murmur, Normal Peripheral Pulses Gastrointestinal: non tender, soft, no organomegaly Extremity: Non Tender, No Calf Tenderness, No Pedal Edema Neurologic/Psychiatric: Alert, Oriented x3, No Motor/Sensory Deficits, Normal Mood/Affect Skin: Normal Color, Warm/Dry, Other (Area over right clavicle where hemodialysis catheter was removed from appears to be healing well. ) Lymphatic: No Adenopathy (cervical) Results Lab Laboratory Tests 09/22/21 05:48: White Blood Count 11.1H, Red Blood Count 3.00L, Hemoglobin 8.9L, Hematocrit 27L, Mean Corpuscular Volume 90, Mean Corpuscular Hemoglobin 30, Mean Corpuscular Hemoglobin Concent 33, Red Cell Distribution Width 15.2H, Platelet Count 368, Mean Platelet Volume 9.0, Immature Granulocyte % (Auto) 2, Neutrophils (%) (Auto) 54, Lymphocytes (%) (Auto) 21, Monocytes (%) (Auto) 13H, Eosinophils (%) (Auto) 10, Basophils (%) (Auto) 0, Neutrophils # (Auto) 6.0, Lymphocytes # (Auto) 2.3, Monocytes # (Auto) 1.4H, Eosinophils # (Auto) 1.2H, Basophils # (Auto) 0.0, Immature Granulocyte # (Auto) 0.2H, Sodium Level 138, Potassium Level 3.5L, Chloride Level 107, Carbon Dioxide Level 19L, Anion Gap 12, Blood Urea Nitrogen 23H, Creatinine 2.86H, Estimat Glomerular Filtration Rate 17, BUN/Creatinine Ratio 8, Glucose Level 82, Calcium Level 7.9L, Corrected Calcium 9.0, Total Bilirubin 0.3, Aspartate Amino Transf (AST/SGOT) 25, Alanine Aminotransferase (ALT/SGPT) 23, Alkaline Phosphatase 114, Total Protein 5.5L, Albumin 2.6L Microbiology 09/20/21 Blood Culture - Preliminary, Resulted No growth 09/16/21 Gram Stain - Final, Resulted 09/16/21 Anaerobic Culture - Preliminary, Resulted No anaerobes isolated 09/16/21 Wound Culture - Final, Resulted Staphylococcus aureus 09/15/21 Urine Culture - Final, Complete NO GROWTH 09/15/21 Gram Stain - Final, Complete 09/15/21 Wound Culture - Final, Complete Staphylococcus aureus 09/15/21 MRSA Screen - Final, Complete MRSA not isolated Assessment/Plan Assessment/Plan Assessment/Plan End-stage kidney disease on dialysis Infected hemodialysis catheter - removed MRSA bacteremia HTN Plan Plan is to place dialysis catheter today and then send her for dialysis Culture results from 09/18, 09/19, 09/20 blood draw, no growth. Pt has been NPO since midnight. Continue to monitor labs for kidney disease. JENNIFER AU Sep 22, 2021 07:17
[2021-09-22 07:30] VITALS: BP 124/69
[2021-09-22 07:51] VITALS: BP 121/71
[2021-09-22] MEDS ORDERED: PROPOFOL INJECTION 50 ML IV ONE ×2 (08:56→09:50)
[2021-09-22] MEDS ORDERED: fentaNYL INJ 100 MCG/2 ML AMP ONE (08:56)
[2021-09-22] MEDS ORDERED: 0.9% SODIUM CHLORIDE PF INJ 20 ML VIAL ONE (09:00)
[2021-09-22] MEDS ORDERED: LIDOCAINE/EPI 1%-1:100,000 (XYLOCAINE) 20ML ONE (09:00)
[2021-09-22] MEDS ORDERED: HEParin (CENTRAL IV FLUSH) 500 UNIT/5 ML SYR ONE (09:00)
[2021-09-22] MEDS: SENNA W/DOCUSATE (SENOKOT S) TABLET PO SCH (09:18)
[2021-09-22] MEDS: amLODIPine 5 MG (NORVASC) TAB PO SCH (09:18)
[2021-09-22] MEDS: cloNIDine 0.1 MG (CATAPRES) TAB PO SCH (09:19)
[2021-09-22] MEDS ORDERED: ONDANSETRON 4 MG/2 ML (SDV) Z0FRAN ONE (10:02)
[2021-09-22 10:08] VITALS: BP 117/76
--- NOTE | 2021-09-22 10:12 | Anesthesia-General Post-Op ---
MAC Patient Condition Mental Status/LOC: Same as Preop Cardiovascular: Satisfactory Nausea/Vomiting: Absent Respiratory: Satisfactory Pain: Controlled Complications: Absent Post Op Complications Complications None Follow Up Care/Instructions Patient Instructions None needed. Anesthesiology Discharge Order Discharge Order Patient is doing well, no complaints, stable vital signs, no apparent adverse anesthesia problems. No complications reported per nursing. YURI HOYOS CRNA Sep 22, 2021 10:12
[2021-09-22] MEDS ORDERED: morphine INJ 10 MG/ML 1ML (SYR OR VIAL) IVP ONE (10:15)
[2021-09-22] MEDS ORDERED: MEPERIDINE (DEMEROL) INJ 50 MG/ML IVP ONE (10:15)
[2021-09-22] MEDS ORDERED: fentaNYL INJ 100 MCG/2 ML AMP IVP ONE (10:15)
[2021-09-22] MEDS ORDERED: ONDANSETRON 4 MG/2 ML (SDV) Z0FRAN IVP PRN (10:15)
--- NOTE | 2021-09-22 10:15 | Progress Note-Post Operative ---
Post-Operative Progess Note Surgeon (s)/White Lead Grinder (s) Surgeon SALVATORE MAO DO White Lead Grinder: NBA Sandoval Pre-Operative Diagnosis Renal Failure Post-Operative Diagnosis same Procedure & Operative Findings Date of Procedure 09/22/21 Procedure Performed/Findings Placement of Tunneled Dialysis Catheter The patient was steriley prepped and draped in the sterile fashion. A surgical pause was performed. Ultrasound was used to locate the Left internal jugular vein. Once located anesthetic was infiltrated above it, as well as along the path to be used for tunneling the catheter into left anterior chest wall. Using an 18 gauge finder needle and watching with the US; the left internal jugular vein was accessed. Dark nonpulsatile blood was withdrawn. The wire was inserted. Fluoroscopy assured proper placement. The needle was removed. A [#11] blade scalpel was used to make a stab incision along the guidewire. Then a stab incision in was made in the left anterior chest wall and catheter was tunneled up to left neck. Next sequential dilation was done to enlarge the opening and finally dilator sheath was then advanced over the wire using Seldinger technique. Checked position of the dilator with flouroscopy and then inner portion of dilator and wire were removed. The Palindrome catheter was inserted down the sheath using the Seldinger technique. The catheter was then accessed in both ports without difficulty. Good flash of blood was seen and they were then flushed with saline and then heparin. The catheter was sutured in place with 3-0 Nylon. The small stab incision was then closed with 4-0 Monocryl. The areas were then washed and dried. Sterile dressing was placed over incision. The patient tolerated the procedure well without complication. Anesthesia Type IV sedation by ELECTRONIC SCALE TESTER Estimated Blood Loss Estimated blood loss (mL): less than 5ml Specimens/Packing Specimens Removed none SALVATORE MAO DO Sep 22, 2021 10:15
[2021-09-22 10:20] VITALS: BP 121/80
[2021-09-22 10:30] VITALS: BP 122/84
[2021-09-22 10:40] VITALS: BP 127/80
[2021-09-22] MEDS: HYDROcodone/APAP 5 MG/325 MG (LORTAB) TAB PO PRN (10:55)
--- NOTE | 2021-09-22 10:58 | Progress Note - Cardiology ---
Cardiology SOAP Progress Note Subjective: Post dialysis catheter replacement (this morning) No c/o CP or SOB C/O mild discomfort at surgical site Objective: I&O/Vital Signs 09/21/21 09/22/21 09/22/21 09/22/21 23:02 07:15 07:30 07:46 Temp 37.6 37.6 Pulse 79 74 Resp 18 18 B/P (MAP) 121/71 (88) 124/69 (87) Pulse Ox 98 93 94 O2 Delivery Nasal Cannula Room Air Room Air Nasal Cannula O2 Flow Rate 2.00 2.00 09/22/21 09/22/21 09/22/21 09/22/21 07:51 07:51 10:08 10:08 Temp 37.6 36.4 Pulse 73 Resp 16 B/P (MAP) 117/76 (90) Pulse Ox 94 97 O2 Delivery Room Air OxyMask OxyMask O2 Flow Rate 0.00 4 4 FiO2 28 09/22/21 09/22/21 10:20 10:30 Resp 15 15 B/P (MAP) 121/80 (94) 122/84 (97) Pulse Ox 97 93 O2 Delivery OxyMask Room Air O2 Flow Rate 2 09/22/21 00:00 Intake Total 1545 ml Output Total 1750 ml Balance -205 ml Constitutional: AAO x 3, well-developed, well-nourished Respiratory: No accessory muscle use; other (fair to good bilateral air entry) Cardiovascular: regular rate-rhythm, S1 and S2, systolic murmur (soft LUIS ALBERTO at card base) Gastrointestional: No tender; soft; No guarding, No rebound; audible bowel sounds Extremities: No clubbing, No cyanosis, No significant edema Neurologic/Psychiatric: oriented x 3, other (moves all limbs equally) Skin: warm/dry; No rash on exposed areas, No ulcerations on exposed areas Results/Procedures: Labs Laboratory Tests 09/22/21 05:48: White Blood Count 11.1H, Red Blood Count 3.00L, Hemoglobin 8.9L, Hematocrit 27L, Mean Corpuscular Volume 90, Mean Corpuscular Hemoglobin 30, Mean Corpuscular Hemoglobin Concent 33, Red Cell Distribution Width 15.2H, Platelet Count 368, Mean Platelet Volume 9.0, Immature Granulocyte % (Auto) 2, Neutrophils (%) (Auto) 54, Lymphocytes (%) (Auto) 21, Monocytes (%) (Auto) 13H, Eosinophils (%) (Auto) 10, Basophils (%) (Auto) 0, Neutrophils # (Auto) 6.0, Lymphocytes # (Auto) 2.3, Monocytes # (Auto) 1.4H, Eosinophils # (Auto) 1.2H, Basophils # (Auto) 0.0, Immature Granulocyte # (Auto) 0.2H, Sodium Level 138, Potassium Level 3.5L, Chloride Level 107, Carbon Dioxide Level 19L, Anion Gap 12, Blood Urea Nitrogen 23H, Creatinine 2.86H, Estimat Glomerular Filtration Rate 17, BUN/Creatinine Ratio 8, Glucose Level 82, Calcium Level 7.9L, Corrected Calcium 9.0, Total Bilirubin 0.3, Aspartate Amino Transf (AST/SGOT) 25, Alanine Aminotransferase (ALT/SGPT) 23, Alkaline Phosphatase 114, Total Protein 5.5L, Albumin 2.6L Microbiology 09/20/21 Blood Culture - Preliminary, Resulted No growth 09/16/21 Gram Stain - Final, Resulted 09/16/21 Anaerobic Culture - Preliminary, Resulted No anaerobes isolated 09/16/21 Wound Culture - Final, Resulted Staphylococcus aureus 09/15/21 Urine Culture - Final, Complete NO GROWTH 09/15/21 Gram Stain - Final, Complete 09/15/21 Wound Culture - Final, Complete Staphylococcus aureus 09/15/21 MRSA Screen - Final, Complete MRSA not isolated Laboratory Tests 09/21/21 06:19 09/22/21 05:48 A/P: Assessment: ESRD, on HD, has infected dialysis catheter, gram-positive bacteremia with staph aureus - managed by the Med svce H/o diastolic CHF, currently compensated - Echo on 06/18/21: Mild to mod conc LVH, LVEF 50-55%, grade 1 diastolic dysfunction, hypokinesis of apex, mod TR with PA pressure 60 to 65 mmHg - [place]WOOD on 09/17/21: no vegetation, mild MR, LVEF 60 Hypertension, currently controlled Plan: * Continue current antihypertensive regimen * Management of ESRD and bacteremia is with the Med svce * K chronically low and stable. Dr Lopez managing * S/P dialysis catheter replacement today - possible d/c home for dialysis later today JALEN HOBSON [facility] Sep 22, 2021 10:58
--- NOTE | 2021-09-22 10:59 | Discharge Summary ---
Diagnosis/Chief Complaint Date of Admission Sep 15, 2021 at 18:20 Date of Discharge 09/22/21 Discharge Summary-Simple/Stand Procedures Diaylsis catheter placement 09/22/[address] Montoya: General Surgery Dr Salinas: Cardiology Discharge Physical Examination Allergies: Coded Allergies: No Known Drug Allergies (Unverified , 06/17/21) Vitals & I&Os Vital Sign - Last 12Hours Date Time Temp Pulse Resp B/P (MAP) Pulse Ox O2 Delivery O2 Flow Rate FiO2 09/22/21 10:30 15 122/84 (97) 93 Room Air 09/22/21 10:20 2 09/22/21 10:08 36.4 09/22/21 07:51 73 28 Intake and Output 09/22/21 00:00 Intake Total 1545 ml Output Total 1750 ml Balance -205 ml General Appearance: Alert, Oriented X3, Cooperative, No Acute Distress HEENT: Mucous Memb Moist/[place] Respiratory: Clear to Auscultation, Normal Air Movement Cardiovascular: Regular Rate, No Murmurs Extremities: Other (2+ pitting edema equal bilaterally) Neuro: Normal Speech Hospital Course Was the Problem List Reviewed?: Yes See final discharge diagnosis. Discharge Condition at discharge Stable Instructions to patient/family Please see electronic discharge instructions given to patient. Discharge Medications Reviewed and agree with Discharge Medication list on patient's Discharge Instruction sheet LACEY JACOBS MD Sep 22, 2021 10:59
--- NOTE | 2021-09-22 11:04 | Discharge Summary ---
Discharge [facility] Reconcile Patient Problems Problems Reviewed?: Yes Discharge Medications New, Converted or Re-Newed RX: Transmitted to Pharmacy New Medications: Clonidine HCl (Clonidine HCl) 0.1 Mg Tablet 0.1 MG PO BID, #60 TAB Vancomycin/Water For Inj (Peg) (Vancomycin 1 Gram/200 ml Bag) 1 Gm/200 Ml Piggyback 1 GM IV Q48H for 7 Days, ML Continued Medications: Acetaminophen (Tylenol Extra Strength) 500 Mg Tablet 500-1000 MG PO Q8H PRN for PAIN-MILD (1-4), TAB Amlodipine Besylate (Amlodipine Besylate) 5 Mg Tablet 10 MG PO DAILY, TAB TAKES 2 (5MG) TABS Bumetanide (Bumetanide) 1 Mg Tablet 2 MG PO DAILY, TAB TAKES 2 (1MG) TABS Carvedilol (Carvedilol) 12.5 Mg Tablet 25 MG PO BID WITH MEALS, TAB TAKES 2 (12.5MG) TABS Patient Instructions Goal/Follow Up Appt: Hemodialysis today after discharge F/u with PCP in 1-2 weeks Activity & Diet Discharge Diet: Cardiac Diet Activity as Tolerated: Yes LACEY JACOBS MD Sep 22, 2021 11:04
[2021-09-22] MEDS: ONDANSETRON 4 MG/2 ML (SDV) Z0FRAN IVP PRN (11:14)
== END 2021-09-22 11:55 | disposition home or self-care (01) | DRG 270 ==
LOC: EDUNIT# 10:04 → ER 10:06 → 4TH 18:20
PROVIDERS: ADMIT Internal Medicine; ATTEND Family Medicine
PROC: 02PY03Z Removal of Infusion Device from Great Vessel, Open Approach (ICD-10-PCS; principal; 2021-09-16 11:47)
PROC: 0JH63XZ Insertion of Tunneled Vascular Access Device into Chest Subcutaneous Tissue and Fascia, Percutaneous Approach (ICD-10-PCS; 2021-09-22)
PROC: 02HV33Z Insertion of Infusion Device into Superior Vena Cava, Percutaneous Approach (ICD-10-PCS; 2021-09-22)
DX: T80.211A Bloodstream infection due to central venous catheter, initial encounter (principal); N18.6 End stage renal disease; A41.02 Sepsis due to Methicillin resistant Staphylococcus aureus; I13.2 Hypertensive heart and chronic kidney disease with heart failure and with stage 5 chronic kidney disease, or end stage renal disease; I50.30 Unspecified diastolic (congestive) heart failure; Z99.2 Dependence on renal dialysis; I08.1 Rheumatic disorders of both mitral and tricuspid valves; M19.91 Primary osteoarthritis, unspecified site; Z87.891 Personal history of nicotine dependence; Z96.642 Presence of left artificial hip joint; Z79.82 Long term (current) use of aspirin
CPT/HCPCS: 36415; 71045; 76000; 80053; 80202; 81000; 83605; 83735; 85007; 85025; 85027; 85610; 85730; 87040; 87070; 87075; 87077; 87081; 87088; 87186; 87205; 87636; 93306; 93312; 94640; 94760; 96361; 96374; 96375

== ENCOUNTER → 2022-03-02 | Outpatient (CLI) | payer MEDICARE, OTHER ==
[~2022-03-02] MED LIST changes: +BUME1TAB8 PO; +CARV12.53 PO; +VANC1PIG IV
== END ==
LOC: LABNPT 15:37
PROVIDERS: ATTEND Internal Medicine Nephrology
DX: Z01.89 Encounter for other specified special examinations (principal)
CPT/HCPCS: 87040

== ENCOUNTER 2022-04-07 15:06 | Outpatient (CLI) | payer MEDICARE ==
[~2022-04-07] VITALS: Ht 160 cm; Wt 51.0 kg
[2022-04-08] MEDS ORDERED: TRM50T PO (13:33)
== END 2022-04-07 15:33 | disposition home or self-care (01) ==
LOC: PREOP 15:06
PROVIDERS: ATTEND Surgery
DX: Z01.818 Encounter for other preprocedural examination (principal)

== ENCOUNTER 2022-04-08 10:06 | Day surgery (SDC) | payer MEDICARE ==
[2022-04-08] VITALS (9 sets, daily range): BP systolic 123–173; BP diastolic 76–95
[~2022-04-08] VITALS: Ht 160 cm; Wt 51.0 kg
[2022-04-08] MEDS ORDERED: ceFAZolin 2 GM IV Premixed 50 ML IV ONE (10:45)
[2022-04-08] MEDS ORDERED: LIDOCAINE/EPI 2% 1:200,00 (XYLOCAINE) 20 ML VIAL ONE (12:55)
[2022-04-08] MEDS ORDERED: PROPOFOL INJECTION 50 ML IV ONE (13:08)
[2022-04-08] MEDS ORDERED: LACTATED RINGERS 1,000 ML IV PRN (13:15)
--- NOTE | 2022-04-08 13:31 | Progress Note-Post Operative ---
Post-Operative Progess Note Surgeon (s)/Art Sales Consultant (s) Surgeon SALVATORE MAO DO Art Sales Consultant: none Pre-Operative Diagnosis REMOVAL OF SEMI-PERMANENT DIALYSIS CATHETER Post-Operative Diagnosis same Procedure & Operative Findings Date of Procedure 04/08/22 Procedure Performed/Findings Removal of Tunneled Dialysis Catheter INDICATIONS: The patient is a 66 year-old female who had a dialysis catheter previously placed. Patient now has good fisutla is ok to have port removed. The patient was explained risk and benefits of the procedure and wished to proceed with procedure. Consent was signed on the chart. PROCEDURE: The patient was taken to the operating suite and was prepped and draped in sterile fashion. A surgical pause was performed. Local anesthetic was infiltrated to the area around the cuff and distal portion of the catheter at skin edge. A #11 blade scalpel was used to make an incision. Cautery was used to dissect down to the cuff which was then grasped and then dissected around. The catheter was removed in its entirety. The wound was then irrigated with copious amounts of irrigation. Hemostasis had been achieved; suture ligated the old tract of the catheter with a 3-0 Vicryl. Skin was then closed loosely using 3-0 Nylon in horizontal mattress fashion. The area was then washed and dried and a dressing was placed over the incision. The patient tolerated the procedure well without complication and was taken to recovery room in stable condition. Anesthesia Type IV sedation by MSWS Estimated Blood Loss Estimated blood loss (mL): scant Specimens/Packing Specimens Removed dialysis cath, not sent to SALVTAORE Jeong DO Apr 08, 2022 13:31
[2022-04-08] MEDS ORDERED: TRM50T PO (13:33)
--- NOTE | 2022-04-08 13:35 | Discharge Inst-Surgical ---
Discharge Inst-Surgical Depart Medication/Instructions New, Converted or Re-Newed RX: Transmitted to Pharmacy Patient Instructions Follow up Appt: Make appointment for 1 week. [phone] Instructions: May shower in 24 hours, no tub bath or soaking. Use incentive spirometer at home as directed. No Smoking Skin/Wound Care: May remove bandages in am. You need to leave the stitch in place and come in to the office to have it removed. Symptoms to Report: Appetite Changes, Extremity Discoloration, Numbness/Tingling, Swelling Increased, Bleeding Excessive, Eyesight Changes, Pain Increased, Urine Color Change, Constipation(Persistent), Fever over 101 degree F, Pain/Pressure in chest, Urinating Difficulty, Cough Up/Vomit Blood, Heart Beat Irreg/Pounding, Pain/Pressure in jaw, Cramps in feet or legs, Lightheadedness, Pain/Pressure in shoulder, Diarrhea(Persistent), Memory Changes Suddenly, Questions/Concerns, Weight gain consecutive days, Dizziness/Fainting, Nausea/Vomiting, Shortness of Breath, Weight gain over 2 pounds If questions or concerns contact your physician Or seek help at emergency department. Activity Activity as Tolerated: Yes Activity Instructions: Avoid Stress to Incision Diet Discharge Diet: No Restrictions (resume same diet as on before) Diet After 24 Hours: Clear Liquid if Nauseous If Any Problems/Questions/Issu: Contact Your Physician, Go to Emergency Room Skin/Wound Care Infection Signs and Symptoms: Increased Redness, Foul Odor of Wound, Increased Drainage, Skin Itchy or Has a Rash, Increased Swelling, Temperature Above 101 F Stitches/Rani/Dermabond Dis: Care of Stitches SALVATORE MAO DO Apr 08, 2022 13:35
--- NOTE | 2022-04-08 13:39 | Anesthesia-General Post-Op ---
MAC Patient Condition Mental Status/LOC: Same as Preop Cardiovascular: Satisfactory Nausea/Vomiting: Absent Respiratory: Satisfactory Pain: Controlled Complications: Absent Post Op Complications Complications None Follow Up Care/Instructions Patient Instructions None needed. Anesthesiology Discharge Order Discharge Order Patient is doing well, no complaints, stable vital signs, no apparent adverse anesthesia problems. No complications reported per nursing. VANIA PALACIO CRNA Apr 08, 2022 13:39
[2022-04-08] MEDS ORDERED: ONDANSETRON 4 MG/2 ML (SDV) Z0FRAN IVP PRN (13:45)
[2022-04-08] MEDS ORDERED: fentaNYL INJ 100 MCG/2 ML AMP IVP ONE (13:45)
== END 2022-04-08 15:04 | disposition home or self-care (01) ==
LOC: SDC 10:06
PROVIDERS: ATTEND Surgery
DX: Z45.2 Encounter for adjustment and management of vascular access device (principal); N18.6 End stage renal disease
CPT/HCPCS: 87081

== ENCOUNTER → 2022-06-03 | Outpatient (CLI) | payer MEDICARE ==
[~2022-06-03] MED LIST changes: +TRM50T PO
--- NOTE | 2022-06-03 19:32 | Diagnostic Imaging Report ---
INDICATION: Right lung nodule follow-up. EXAMINATION: CT chest without contrast, 06/03/2022. COMPARISON: Correlation made to radiographs from 09/15/2021. FINDINGS: Location of the nodule in question is unknown at the time of evaluation. Biapical scarring seen within the lung apices. There are scattered scar or atelectasis within the remaining lungs. No suspicious masses or lung nodules appreciated. Within the mediastinum multiple prominent lymph nodes noted within the precarinal region and AP window. Largest precarinal lymph node has a measurement of 1.1 cm in short access. Several shotty lymph nodes seen within the superior mediastinum. There is no axillary adenopathy. Within the visualized lateral aspect of the left breast soft tissue prominence is noted which could represent normal fibroglandular tissue but is asymmetric compared to the opposite side. Correlation with mammography recommended. There is no pericardial or pleural effusion. Visualized upper abdominal structures unremarkable for acute abnormality. There is no acute osseous abnormality. IMPRESSION: 1. No suspicious lung mass is appreciated with areas of scar or atelectasis seen, bilaterally. If the questioned lung nodule is demonstrated on outside imaging, this would be useful for comparative purposes. 2. Mediastinal adenopathy nonspecific perhaps due to an inflammatory or infectious etiology. Metastatic process not excluded. 3. Soft tissue prominence within the left lateral breast, asymmetric compared to the right side. Mammography recommended to exclude underlying mass. Other incidental findings as noted above. Dictated by: Dictated on workstation # [id number]
== END ==
LOC: RAD 13:58
PROVIDERS: ATTEND Internal Medicine Nephrology
DX: R91.1 Solitary pulmonary nodule (principal); N64.89 Other specified disorders of breast
CPT/HCPCS: 71250

== ENCOUNTER → 2022-07-01 | Outpatient (CLI) | payer MEDICARE ==
[~2022-07-01] MED LIST changes: +CATHETER FLUSH 10 ML SYR IVP PRN; +REGADENOSON 0.4 MG/5 ML SYR (LEXISCAN) IV ONE
[2022-07-01 13:16] VITALS: BP 140/84
--- NOTE | 2022-07-01 15:18 | Cardiology Stress Test Report ---
Stress Test Report Date of Procedure/Referring: Date of Procedure: Jul 01, 2022 PCP [place] Admitting Physician Admitting Physician: Attending Physician: Vero Yin MD Indications: HTN Baseline Heart Rate: 76 Baseline Blood Pressure: Blood Pressure Systolic: 140 Blood Pressure Diastolic: 84 Baseline Vitals Vital Signs Date Time Temp Pulse Resp B/P (MAP) Pulse Ox O2 Delivery O2 Flow Rate FiO2 07/01/22 13:16 76 140/84 (102) Baseline EKG: Baseline EKG: NSR Summary After explaining the procedure to the patient, she signed a consent and then brought to the stress nuclear laboratory. Patient received 0.4 mg Lexiscan for stress test, ECG, heart rate and blood pressure were monitored continuously. Resting and stress dose of radio tracer were injected, imaging was acquired and reviewed in short axis, horizontal long axis and vertical long axis views. TID: 1.01 SSS: 3 SDS: 1 EF: 70 1. Patient tolerated Lexiscan well 2. No significant ischemia or infarction on SPECT images 3. Normal left ventricular size, ejection fraction 70% VERO YIN MD Jul 01, 2022 15:18
== END ==
LOC: CARD 10:43
PROVIDERS: ATTEND Internal Medicine Cardiovascular Disease
DX: I10 Essential (primary) hypertension (principal); I25.10 Atherosclerotic heart disease of native coronary artery without angina pectoris
CPT/HCPCS: 78452; 93017; 93306; A9502

== ENCOUNTER → 2023-04-02 | Outpatient (CLI) | payer MEDICARE ==
[~2023-04-02] MED LIST changes: -CATHETER FLUSH 10 ML SYR IVP PRN; -REGADENOSON 0.4 MG/5 ML SYR (LEXISCAN) IV ONE
== END ==
LOC: CARD 12:57
DX: I51.7 Cardiomegaly (principal); I07.1 Rheumatic tricuspid insufficiency
CPT/HCPCS: 93306

== ENCOUNTER → 2023-04-05 | Outpatient (CLI) | payer MEDICARE ==
[~2023-04-05] VITALS: Ht 162 cm; Wt 49.0 kg
[~2023-04-05] MED LIST changes: +CATHETER FLUSH 10 ML SYR IVP PRN; +REGADENOSON 0.4 MG/5 ML SYR (LEXISCAN) IV ONE
[2023-04-05 09:38] VITALS: BP 132/74
--- NOTE | 2023-04-06 08:20 | Cardiology Stress Test Report ---
Stress Test Report Date of Procedure/Referring: Date of Procedure: Apr 06, 2023 PCP Delia Adames MD Admitting Physician Admitting Physician: Attending Physician: Other,Unlisted Baseline Heart Rate: 69 Baseline Blood Pressure: Blood Pressure Systolic: 132 Blood Pressure Diastolic: 74 Baseline Vitals Vital Signs Date Time Temp Pulse Resp B/P (MAP) Pulse Ox O2 Delivery O2 Flow Rate FiO2 04/05/23 09:38 69 132/74 (93) Baseline EKG: Baseline EKG: NSR Summary After explaining the procedure to the patient, she signed a consent and then brought to the stress nuclear laboratory. Patient received 0.4 mg Lexiscan for stress test, ECG, heart rate and blood pressure were monitored continuously. Resting and stress dose of radio tracer were injected, imaging was acquired and reviewed in short axis, horizontal long axis and vertical long axis views. TID: 0.98 SSS: 2 SDS: 2 EF: 76 Patient tolerated Lexiscan well No significant ischemia or infarction on SPECT images Normal left ventricular size, ejection fraction 76% Copy Copies To 1: [facility]/VERO YAÑEZ MD Apr 06, 2023 08:20
== END ==
LOC: CARD 08:20
DX: Z76.82 Awaiting organ transplant status (principal)
CPT/HCPCS: 78452; 93017; A9502

== ENCOUNTER 2023-07-19 09:05 | Emergency (ER) | payer MEDICARE ==
[~2023-07-19] VITALS: Ht 162 cm; Wt 49.0 kg
[~2023-07-19 09:05] MED LIST changes: -CATHETER FLUSH 10 ML SYR IVP PRN; -REGADENOSON 0.4 MG/5 ML SYR (LEXISCAN) IV ONE
--- NOTE | 2023-07-19 11:00 | ED Abdominal Pain ---
General Chief Complaint: Abdominal/GI Problems Stated Complaint: ABD PAIN | CONSTIPATION Nursing Triage Note: PT TO [facility] WITH C/O ABD PAIN SINCE WEDNESDAY AND A SMALL BM YESTERDAY. PT HAS TAKEN MIRALAX AND SOFTENERS WITHOUT RELIEF Source of Information: Patient Exam Limitations: No Limitations History of Present Illness Date Seen by Provider: Jul 19, 2023 Time Seen by Provider: 10:57 Initial Comments Patient is a 67-year-old female who is currently on dialysis every Wednesday and Wednesday who presents ED with abdominal pain. Abdominal pain starts from her upper abdomen to her lower abdomen. Pain is described as crampy. Pain is seems to be worse at night. She states over the past week and a half she has been experiencing this pain. She states she tries to get up and have a bowel movement but is having very small soft stool. She states she has not been having a bowel movement on a regular basis. Seems to be every other day. Has been taking MiraLAX and stool softener without much improvement. She is concerned she may be constipated. this seems to be different. She has not eaten since 4 yesterday. Says every time she eats she feels distended. She reports dry heaving without vomiting. She denies of any urinary symptoms. History of appendectomy. She does wear oxygen currently. She is currently on a transplant list for her kidneys. She denies of any current chest pain shortness of breath, headache, dizziness, fever, chills. She states she has had a colonoscopy in the past which was unremarkable. She denies of any blood or mucousy stools with her bowel movements Allergies and Home Medications Allergies Coded Allergies: hydrocodone (Unverified Allergy, Severe, Angioedema, 04/07/22) Patient Home Medication List Home Medication List Reviewed: Yes Acetaminophen (Tylenol Extra Strength) 500 Mg Tablet, 500-1,000 MG PO Q8H PRN for PAIN-MILD (1-4), (Reported) Entered as Reported by: KURT HERNANDEZ on 06/18/21 0907 Amlodipine Besylate (Amlodipine Besylate) 5 Mg Tablet, 10 MG PO DAILY, (Reported) Entered as Reported by: KURT HERNANDEZ on 09/16/21 1356 Bumetanide (Bumetanide) 1 Mg Tablet, 2 MG PO DAILY, (Reported) Entered as Reported by: KURT HERNANDEZ on 09/16/21 1356 Carvedilol (Carvedilol) 12.5 Mg Tablet, 25 MG PO BID WITH MEALS, (Reported) Entered as Reported by: KURT HERNANDEZ on 09/16/21 1356 Clonidine HCl (Clonidine HCl) 0.1 Mg Tablet, 0.1 MG PO BID Prescribed by: DAO OROZCO on 09/21/21 1213 Tramadol HCl (Tramadol HCl) 50 Mg Tablet, 50 MG PO Q8H PRN for PAIN-MODERATE (5- 7) Prescribed by: SALVATORE MAO on 04/08/22 1334 Review of Systems Review of Systems Constitutional: No chills, No diaphoresis, No malaise, No weakness EENTM: No Blurred Vision, No Double Vision Respiratory: Denies Cough, Denies Orthopnea Cardiovascular: Denies Chest Pain Gastrointestinal: Abdominal Pain, Constipated, Nausea; Denies Vomiting Genitourinary: Denies Burning, Denies Discharge, Denies Drainage, Denies Frequency Musculoskeletal: No back pain, No joint pain Skin: No change in color, No change in hair/nails All Other Systems Reviewed Negative Unless Noted: Yes Past Akhsere-Efezub-Vvgkav Hx Patient Social History Tobacco Use?: No Use of E-Cig and/or Vaping dev: No Substance use?: No Alcohol Use?: No Pt feels they are or have been: No Immunizations Up To Date Tetanus Booster (TDap): Unknown Seasonal Allergies Seasonal Allergies: Yes Past Medical History Surgery/Hospitalization HX: DIALYSIS, HTN, HLD APPY, L TK Surgeries: Yes (LEFT HIP, DIALYSIS FISTUAL) Appendectomy, Orthopedic Respiratory: No Currently Using CPAP: No Currently Using BIPAP: No Cardiac: Yes Hypertension Neurological: No Genitourinary: Yes Renal Failure Gastrointestinal: No Musculoskeletal: Yes Arthritis Endocrine: No HEENT: Yes (WEARS GLASSES) Cancer: No Psychosocial: No Integumentary: No Blood Disorders: No Family Medical History Cancer, Diabetes, Other Conditions/Hx Physical Exam Vital Signs Vital Signs - First Documented 07/19/23 09:07 Temp 36.3 Pulse 74 Resp 20 B/P (MAP) 107/74 (85) Pulse Ox 95 O2 Delivery Nasal Cannula O2 Flow Rate 1.00 Capillary Refill : Height/Weight/BMI Height: '" Weight: lbs. oz. 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, no motor/sensory deficits, alert, normal mood/affect Skin: normal color, warm/dry Progress/Results/Core Measures Results/Orders Lab Results Laboratory Tests Test 07/19/23 11:27 07/19/23 11:40 Range/Units White Blood Count 10.9 4.3-11.0 10^3/uL Red Blood Count 4.67 3.80-5.11 10^6/uL Hemoglobin 14.8 11.5-16.0 g/dL Hematocrit 43 35-52 % Mean Corpuscular Volume 91 80-99 fL Mean Corpuscular Hemoglobin 32 25-34 pg Mean Corpuscular Hemoglobin Concent 35 32-36 g/dL Red Cell Distribution Width 16.4 H 10.0-14.5 % Platelet Count 235 130-400 10^3/uL Mean Platelet Volume 9.5 9.0-12.2 fL Immature Granulocyte % (Auto) 1 % Neutrophils (%) (Auto) 71 42-75 % Lymphocytes (%) (Auto) 20 12-44 % Monocytes (%) (Auto) 8 0-12 % Eosinophils (%) (Auto) 0 0-10 % Basophils (%) (Auto) 0 0-10 % Neutrophils # (Auto) 7.7 1.8-7.8 10^3/uL Lymphocytes # (Auto) 2.2 1.0-4.0 10^3/uL Monocytes # (Auto) 0.9 0.0-1.0 10^3/uL Eosinophils # (Auto) 0.0 0.0-0.3 10^3/uL Basophils # (Auto) 0.0 0.0-0.1 10^3/uL Immature Granulocyte # (Auto) 0.1 0.0-0.1 10^3/uL D-Dimer 3.85 H 0.00-0.49 UG/ML Sodium Level 127 L 135-145 MMOL/L Potassium Level 4.4 3.6-5.0 MMOL/L Chloride Level 92 L 98-107 MMOL/L Carbon Dioxide Level 18 L 21-32 MMOL/L Anion Gap 17 H 5-14 MMOL/L Blood Urea Nitrogen 29 H 7-18 MG/DL Creatinine 3.09 H 0.60-1.30 MG/DL Estimat Glomerular Filtration Rate 16 BUN/Creatinine Ratio 9 Glucose Level 94 70-105 MG/DL Calcium Level 9.0 8.5-10.1 MG/DL Corrected Calcium 9.1 8.5-10.1 MG/DL Total Bilirubin 1.2 H 0.1-1.0 MG/DL Aspartate Amino Transf (AST/SGOT) 75 H 5-34 U/L Alanine Aminotransferase (ALT/SGPT) 60 H 0-55 U/L Alkaline Phosphatase 149 H 40-136 U/L Troponin I 0.162 H <0.028 NG/ML B-Type Natriuretic Peptide 4407.0 H <100.0 PG/ML Total Protein 6.8 6.4-8.2 GM/DL Albumin 3.9 3.2-4.5 GM/DL Lipase 39 8-78 U/L Urine Color YELLOW Urine Clarity SL CLOUDY Urine pH 5.0 5-9 Urine Specific [place] 1.025 H 1.016-1.022 Urine Protein 1+ H NEGATIVE Urine Glucose (UA) NEGATIVE NEGATIVE Urine Ketones TRACE H NEGATIVE Urine Nitrite NEGATIVE NEGATIVE Urine Bilirubin 2+ H NEGATIVE Urine Urobilinogen 1.0 < = 1.0 MG/DL Urine Leukocyte Esterase TRACE H NEGATIVE Urine RBC (Auto) NEGATIVE NEGATIVE Urine RBC NONE /HPF Urine WBC 2-5 /HPF Urine Squamous Epithelial Cells 0-2 /HPF Urine Renal Epithelial Cells 0-2 /HPF Urine Crystals NONE /LPF Urine Bacteria LARGE H /HPF Urine Casts PRESENT /LPF Urine Hyaline Casts 5-10 H /LPF Urine Mucus NEGATIVE /LPF Urine Culture Indicated YES My Orders Orders - LOPEZ MUNSON Cbc And Automated Diff (07/19/23 10:56) Comprehensive Metabolic Panel (07/19/23 10:56) Lipase (07/19/23 10:56) Ct Abdomen/Pelvis Wo (07/19/23 10:56) Urinalysis (07/19/23 10:56) Ekg Tracing (07/19/23 11:45) Urine Culture (07/19/23 11:40) Ceftriaxone Iv/Im (Ceftriaxone Iv/Im) (07/19/23 12:19) Ns Iv 500 Ml (Ns Iv 500 Ml) (07/19/23 13:19) Ns Iv 500 Ml (Ns Iv 500 Ml) (07/19/23 13:21) Bnp Gaurav (07/19/23 13:36) Troponin I [place] (07/19/23 13:36) Chest 1 View, Ap/Pa Only (07/19/23 14:10) Fibrin Degradation Products (07/19/23 14:11) Aspirin Chewable Tablet (Aspirin Chewabl (07/19/23 14:15) Medications Given in ED Current Medications Medications Dose Ordered Sig/Christen Route Start Time Stop Time Status Last Admin Dose Admin Aspirin 324 mg ONCE ONCE PO 07/19/23 14:15 07/19/23 14:16 DC 07/19/23 14:29 324 MG Vital Signs/I&O 07/19/23 07/19/23 09:07 15:10 Temp 36.3 37.0 Pulse 74 73 Resp 20 26 B/P (MAP) 107/74 (85) 111/76 Pulse Ox 95 96 O2 Delivery Nasal Cannula Nasal Cannula O2 Flow Rate 1.00 1.00 1.00 Blood Pressure Mean: 85 Comment Sinus rhythm, pattern consistent with pulmonary disease, incomplete right bundle branch block, right ventricular hypertrophy, 72 bpm, QRS duration 98 MS, QTc 446 MS. Departure Communication (PCP) History of chronic kidney disease currently on dialysis every Wednesday and Wednesday. Had dialysis today. Patient Was found to be hypoxic was placed on 2 L. She states she has been put on oxygen with her last 2 dialysis appointments secondary to hypoxia. She does follow kindergarten aide Dr. Painting at [facility]. She does not wear oxygen at home. She was seen a few weeks ago and is scheduled for an outpatient pulmonary function test and to check for PE. She had a abnormal echo in March according to patient that required her to get off the transplant list for her kidneys. Her echo in March showed grade 2 diastolic dysfunction. She had a cardiac stress test in April by Dr. Yin that which did not show any significant ischemia or infarction. Patient on arrival with a soft blood p ressure. She did have dialysis and removed 2 L. She was afebrile. She has been having intermittent generalized abdominal discomfort for the past week with shortness of breath. She states she feels like she may be retaining more fluid. She does not appear severely edematous. She does report some pain in the legs. Denies of any specific chest pain. 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 EKG, cardiac work-up, CT scan of the abdomen pelvis was ordered. Hematology unremarkable. Chemistry 127 sodium, chloride 92, creatinine 3.09, GFR 16, AST 75, ALT is 60. Her troponin was slightly bumped 0.162 BNP of 4500. Did receive a dose of aspirin 324mg. EKG showed sinus rhythm without evidence of ST elevation or depression. Elevated troponin likely secondary to her CKD. No specific chest pain. Anticoagulant was held. Patient did have an elevated D-dimer at 3.85. Not able to do CT angio secondary to not having dialysis here. We will attempt a VQ scan. chest x-ray was obtained which showed a new right pleural effusion. CT abdomen pelvis was obtained which showed extensive third space fluids with pleural and pericardial effusion. Abdominopelvic ascites, body wall edema but no loculated collection. Not concern for peritonitis. She did receive her Rocephin secondary to questionable UTI with urinalysis positive for leukocytes and bacteria. Due to new pleural effusion, pericardial effusion 5mm and being a dialysis patient patient will need to be transferred to a facility that has hepatology and dialysis. Patient will need further cardiac evaluation. Contacted [facility] and talked to Dr. Alvarado hospitalist who agreed to accept patient but will not have a room for at least 24 hours. [facility] states they are at max capacity and refused transfer. Contacted [facility] in [place] and talk to Dr. toscano physician who agreed to accept patient. At this time recommended no anticoagulants. Discussed elevated D-dimer and further evaluation will be performed at their facility. Recommend no further imaging. Physician who will accept will be Dr. Flood in the ER. Due to no ground EMS transport patient will be transferred by air. Transferring due to new onset CHF, pericardial effusion, oxygen requirement. Impression Primary Impression: Pericardial effusion Additional Impression: Fluid retention Disposition: 02 XFER SHT-TRM HOSP Condition: Stable Transfer Medically Cleared for Xfer: Yes Transfer Reason: Exceeds level of care Time Spoke to Accepting Phy: 15:[address] Remigio STEVE physician Transfer Time: 15:00 Transfer Facility: [facility] Method of Transfer: Air Departure-Patient Inst. Referrals: LACEY JACOBS MD (PCP) Primary Care Physician [facility] (Family) Primary Care Physician LOPEZ MUNSON Jul 19, 2023 11:00
--- NOTE | 2023-07-19 11:35 | Diagnostic Imaging Report ---
PROCEDURE: CT abdomen and pelvis without contrast. TECHNIQUE: Multiple contiguous axial images were obtained through the abdomen and pelvis without the use of intravenous contrast. Auto Exposure Controls were utilized during the CT exam to meet ALARA standards for radiation dose reduction. INDICATION: Abdominal pain, greater left. COMPARISON: Exam compared with chest CT of 06/03/2022 and the most recent abdominopelvic study of 06/17/2021. FINDINGS: There is a right pleural effusion layering to a depth of 6.5 cm with subjacent dependent right lower lobe partial passive atelectasis. There is a tiny left pleural effusion, subcentimeter. There is small pericardial effusion measuring 5 mm along the anterior heart border. There is diffuse body wall and integumentary edema. Skhik-dc-dfunhqly volume of abdominopelvic free intraperitoneal fluid is present without loculated collection. Unopacified liver is nonacute. There is no bile duct dilatation. The spleen is normal in size. The adrenals are unremarkable. There is renal atrophy without hydronephrosis. The unopacified pancreas is grossly unremarkable. The atherosclerotic aorta is nonaneurysmal. No radiodense biliary calculi. There is no bowel obstruction or ileus. The uterus and adnexa are unremarkable. The left hip is replaced. There is no acute bony abnormality. IMPRESSION: 1. Extensive third-space fluids with pleural and pericardial effusions, abdominopelvic ascites, and body wall edema but no loculated collection. 2. Atrophic-appearing unobstructed kidneys. No free air. No focal inflammatory change is found. Dictated by: Dictated on workstation # [id number]
[2023-07-19 11:36] LABS: BASOPHILS % (AUTO) 0 % (0-10); EOSINOPHILS % (AUTO) 0 % (0-10); HEMATOCRIT 43 % (35-52); HEMOGLOBIN 14.8 g/dL (11.5-16.0); LYMPHOCYTES # (AUTO) 2.2 10^3/uL (1.0-4.0); LYMPHOCYTES % (AUTO) 20 % (12-44); MEAN CORPUSCULAR HEMOGLOBIN 32 pg (25-34); MEAN CORPUSCULAR HGB CONC 35 g/dL (32-36); MEAN CORPUSCULAR VOLUME 91 fL (80-99); MEAN PLATELET VOLUME 9.5 fL (9.0-12.2); MONOCYTES # (AUTO) 0.9 10^3/uL (0.0-1.0); MONOCYTES % (AUTO) 8 % (0-12); NEUTROPHILS # (AUTO) 7.7 10^3/uL (1.8-7.8); NEUTROPHILS % (AUTO) 71 % (42-75); PLATELET COUNT 235 10^3/uL (130-400); WHITE BLOOD COUNT 10.9 10^3/uL (4.3-11.0)
[2023-07-19 11:48] LABS: ALBUMIN 3.9 GM/DL (3.2-4.5); POTASSIUM 4.4 MMOL/L (3.6-5.0)
[2023-07-19 11:51] LABS: TOTAL PROTEIN 6.8 GM/DL (6.4-8.2)
[2023-07-19 11:53] LABS: BILIRUBIN,TOTAL 1.2 MG/DL (0.1-1.0)
[2023-07-19 11:54] LABS: BILIRUBIN,URINE 2+ (NEGATIVE); CLARITY,URINE SL CLOUDY; COLOR,URINE YELLOW; GLUCOSE, URINE (UA) NEGATIVE (NEGATIVE); KETONES,URINE TRACE (NEGATIVE); LEUKOCYTE ESTERASE ,URINE TRACE (NEGATIVE); NITRITE,URINE NEGATIVE (NEGATIVE); PROTEIN,URINE 1+ (NEGATIVE)
[2023-07-19 11:55] LABS: CREATININE SERUM 3.09 MG/DL (0.60-1.30)
[2023-07-19 11:55] LABS: BACTERIA,URINE LARGE /HPF
[2023-07-19 11:56] LABS: RENAL EPITHELIAL CELLS,URINE 0-2 /HPF; SQUAMOUS EPITHELIAL CELL,UR 0-2 /HPF
[2023-07-19] MEDS ORDERED: cefTRIAXone IV/IM 1,000 MG in NS (IVPB) 50 ML 50 ML IV STA (12:19)
[2023-07-19] MEDS ORDERED: NS IV 500 ML 500 ML IV STA (13:19)
[2023-07-19] MEDS ORDERED: NS IV 500 ML 500 ML ONE (13:21)
[2023-07-19] MEDS ORDERED: ASPIRIN 81 MG CHEWABLE TABLET PO ONE (14:15)
[2023-07-19 15:10] VITALS: BP 111/76
--- NOTE | 2023-07-19 15:13 | Diagnostic Imaging Report ---
INDICATION: Shortness of breath. COMPARISON: 09/15/2021. FINDINGS: A subpulmonic right pleural effusion has developed. There is some subjacent right lower lobe infiltrate or atelectasis. The lungs are otherwise clear. A vascular stent at the mediastinum has been placed. The right IJ catheter has been removed in the interim. IMPRESSION: New right pleural effusion and subjacent infiltrate or atelectasis. Vascular stent at the mediastinum placed since prior. Dictated by: Dictated on workstation # [id number]
== END 2023-07-19 15:40 | disposition short-term general hospital (02) ==
LOC: EDUNIT# 09:05 → ER 09:07
DX: I31.39 Other pericardial effusion (noninflammatory) (principal); R60.9 Edema, unspecified
CPT/HCPCS: 36415; 71045; 74176; 80053; 81000; 83690; 83880; 84484; 85025; 85379; 87088; 93005

== ENCOUNTER → 2023-09-22 | Outpatient (CLI) | payer MEDICARE | LOC: LABNPT 07:41 | PROVIDERS: ATTEND Internal Medicine Nephrology | DX: Z01.89 Encounter for other specified special examinations (principal) | CPT/HCPCS: 85652; 86021; 86141; 86256 ==